=== PATIENT | female | born 1950 | race Caucasian/White ===

== ENCOUNTER → 2017-05-22 09:00 | Outpatient (CLI) | payer MEDICARE, OTHER, SELFPAY ==
[2017-05-22 12:47] LABS: Hemoglobin A1c 5.8 % (4.2-6.3)
[2017-05-22 12:57] LABS: Anion Gap 11 (5-15); BUN 11 mg/dL (7-18); BUN/Creat Ratio 15.6 RATIO (10-20); Calcium,Total 8.6 mg/dL (8.5-10.1); Chloride 106 mmol/L (98-107); EST Glomerular Filtration Rate 89 mL/min (>60); Est Glom Filt Rate - Afr Amer 107 mL/min (>60); Glucose 103 mg/dL (74-106); Sodium Level 140 mmol/L (136-145); T4 Free Direct 0.97 ng/dL (0.76-1.46); Thyroid Stim Hormone (TSH) 2.97 uIU/mL (0.358-3.74)
== END ==
PROVIDERS: Family Provider Family Medicine; PCP Family Medicine; Visit Provider Family Medicine
DX: E78.5 Hyperlipidemia, unspecified (principal); R73.01 Impaired fasting glucose; F43.22 Adjustment disorder with anxiety
CPT/HCPCS: 36415; 80048; 83036; 84439; 84443

== ENCOUNTER → 2017-06-28 09:15 | Outpatient (CLI) | payer MEDICARE, OTHER, SELFPAY ==
--- NOTE | 2017-06-28 09:20 | HPBI_ITS ---
MAMMOGRAPHY - BILATERAL DIAGNOSTIC REASON FOR EXAM: Female, 67 years old. Left outer quadrant pain x3 weeks PERTINENT HISTORY: Aunt with breast cancer. TECHNIQUE: Digital examination. Mediolateral oblique (MLO) and craniocaudad (CC) views of both breasts were obtained, along with 3-D, symphysis. CAD: CAD was performed on this study. COMPARISON: 03/05/2016 FINDINGS: Breast Composition: There are scattered areas of fibroglandular density. There are no dominant masses or suspicious calcifications. No other significant abnormalities are identified. There has been no significant change since the prior study. HPBI/DIAG MAMM W/CAD, BILAT IMPRESSION: Stable bilateral diagnostic mammogram. ASSESSMENT CATEGORY: BIRADS Category 2: Benign. A letter regarding these results will be sent to the patient by the facility within 30 days. FOLLOW UP RECOMMENDATION: Yearly follow up mammogram recommended. (A) BR2 Approximately 10% of breast cancers are not detected by mammography. A normal mammogram should not delay biopsy of a clinically suspicious abnormality. Electronically Signed: Jacob Coats MD at 9:18 EDT , Service support ,
--- NOTE | 2017-06-28 09:20 | US_ITS ---
STUDY: ULTRASOUND BREAST - RIGHT REASON FOR EXAM: Female, 67 years old. RIGHT BREAST PAIN-LOQ TECHNIQUE: Axial and longitudinal images of the RIGHT breast were performed with a high resolution ultrasound transducer. COMPARISON: None. FINDINGS: RIGHT Breast: No ultrasound abnormality is seen in the area of tenderness in the lower outer quadrant of the right breast. US/Breast Limited Unilateral IMPRESSION: Normal study. ASSESSMENT CATEGORY: BIRADS Category 1: Negative. A letter regarding these results will be sent to the patient by the facility within 30 days. Electronically Signed: Patrizia Hooper MD at 10:06 EDT Tel , Service support ,
== END ==
PROVIDERS: Family Provider Family Medicine; PCP Family Medicine; Visit Provider Family Medicine
DX: N63.13 Unspecified lump in the right breast, lower outer quadrant (principal)
CPT/HCPCS: 76642; 77062; 77066; G0279

== ENCOUNTER → 2017-09-07 08:52 | Outpatient (CLI) | payer MEDICARE, OTHER, SELFPAY ==
--- NOTE | 2017-09-07 08:59 | CT_ITS ---
STUDY: CT MAXILLOFACIAL SINUSES REASON FOR EXAM: Female, 67 years old. Sinusitis RADIATION DOSAGE (If Supplied By Facility): CTDIvol = ( 33.06 ) mGy, DLP = ( 776.00 ) mGycm TECHNIQUE: The patient was scanned in a multi detector CT scanner. High resolution axial imaging was performed without the administration of intravenous contrast material. Sagittal and coronal images were reconstructed. Individualized dose optimization techniques were used for this CT. COMPARISON: None. FINDINGS: FRONTAL SINUSES: Normal aeration, without mucosal inflammatory disease. ETHMOIDAL SINUSES: Normal aeration, without mucosal inflammatory disease. MAXILLARY SINUSES: There is minimal mucoperiosteal thickening of the maxillary sinuses, small mucous retention cyst at the base of the left. SPHENOIDAL SINUSES: There is a small right posterior sphenoid sinus that is partially opacified. This is in continuity with a larger right sided sphenoid sinus that lies just anterior. The remaining sphenoid sinuses are clear. The mastoid air cells and middle ear cavities are clear. Craniofacial osseous structures unremarkable. Superficial and deep facial soft tissues, pharyngeal soft tissues and orbital contents exhibit no acute process. Cervical soft tissues exhibit numerous small shotty lymph nodes, cervical chains, submandibular, not pathologically enlarged. Normal parotid glands. Cervical spine: Mild multilevel upper cervical degenerative disc disease and facet arthropathy. CT/Sinus/Facial Bone IMPRESSION: Minimal chronic sinus disease. Electronically Signed: Chano Martin, at 0:08 EDT Tel , Service support ,
== END ==
PROVIDERS: Family Provider Family Medicine; PCP Family Medicine; Visit Provider Otolaryngology
DX: J32.9 Chronic sinusitis, unspecified (principal)
CPT/HCPCS: 70486

== ENCOUNTER → 2017-12-13 09:30 | Outpatient (CLI) | payer MEDICARE, OTHER, SELFPAY ==
[2017-12-19 08:31] LABS: HPV HC, High Risk Negative (Negative)
== END ==
PROVIDERS: Family Provider Family Medicine; PCP Family Medicine; Visit Provider Family Medicine
DX: Z12.4 Encounter for screening for malignant neoplasm of cervix (principal)
CPT/HCPCS: 87624; 88175; G0145

== ENCOUNTER 2018-02-03 08:57 | Day surgery (SDC) | payer MEDICARE, OTHER, SELFPAY ==
[2018-02-03 09:15] VITALS: BP 123/73; PULSE 78; RESP 18; TEMP 36.2; O2SAT 98; BMI 30.9
--- NOTE | 2018-02-03 10:15 | COLBX_PTH ---
PATIENT: OMI ANDERSON LOC: EN U#:[id number] AGE/SX: 67/F ROOM: RE02/03/[address]: Dr. Deanne Sharpe MD : 1950 BED: DIS: 02/03/2018 SPEC #: [id number] RECD: 02/03/18 11:56 STATUS: ANDI REQ #: [id number] KAREEN: 02/03/18 10:[address]: Deanne Sharpe DEPT: SURGICAL PATHOLOGY RECD BY: Nimesh Spicer ENTERED: 02/03/18 12:58 SP TYPE: COLON BX OTHR DR: Dr. Barney High MD Tissues: A - Transverse colon B - Rectum, NOS Procedures: Surgery Specimen Level IV HEADER OPERATION: Colonoscopy (MAC) PRE-OP DIAGNOSIS: Change in bowel habits TISSUE SUBMITTED: A - Transverse colon polyp, B - Rectal polyp biopsy MICROSCOPIC DIAGNOSIS A. Transverse colon polyp, biopsy: Fragments of tubular adenoma. Fragments of fecal material. B. Rectal polyp, biopsy: Fragments of hyperplastic polyp. [place]:[facility] 02/04/18 MICROSCOPIC DESCRIPTION Slides are reviewed. GROSS DESCRIPTION A - Received in fixative is one container labeled with the patient's name and designated transverse colon polyp. The specimen consists of multiple irregular fragments of light garcia soft tissue that in aggregate measure 1.2 x 0.5 x 0.1 cm. The specimen is totally submitted in one cassette. B - Received in fixative is one container labeled with the patient's name and designated rectal polyp biopsy. The specimen consists of two irregular fragments of light garcia soft tissue that in aggregate measure 0.5 x 0.2 x 0.1 cm. The specimen is totally submitted in one cassette. / [place]:[facility] 02/03/18 TC:1 [facility]: [id number] x2
[2018-02-03 11:00] VITALS: BP 123/73; BP 137/84; PULSE 76; RESP 16; TEMP 36.7; O2SAT 100
[2018-02-03 11:05] VITALS: BP 123/73; BP 130/76; PULSE 74; RESP 16; O2SAT 100
--- NOTE | 2018-02-03 11:05 | OP.ENDO_ITS ---
Patient Name: Donna Woo Procedure Date: 02/03/2018 10:09 AM Date of : 1950 Age: 67 Procedure: Colonoscopy Indications: Change in bowel habits Providers: Deanne Sharpe MD Medicines: Monitored Anesthesia Care Patient Profile: Last Colonoscopy: 10 years ago. Complications: No immediate complications. Procedure: Pre-Anesthesia Assessment: - Prior to the procedure, a History and Physical was performed, and patient medications and allergies were reviewed. The patient's tolerance of previous anesthesia was also reviewed. The risks and benefits of the procedure and the sedation options and risks were discussed with the patient. All questions were answered, and informed consent was obtained. Prior Anticoagulants: The patient has taken no previous anticoagulant or antiplatelet agents. ASA Grade Assessment: II - A patient with mild systemic disease. After reviewing the risks and benefits, the patient was deemed in satisfactory condition to undergo the procedure. After I obtained informed consent, the scope was passed under direct vision. Throughout the procedure, the patient's blood pressure, pulse, and oxygen saturations were monitored continuously. The Colonoscope was introduced through the anus and advanced to the cecum, identified by the appendiceal orifice, ileocecal valve and palpation. The colonoscopy was performed without difficulty. The patient tolerated the procedure well. The quality of the bowel preparation was good. Scope In: 10:19:40 AM Scope Withdrawal Time 0 hours 23 minutes 16 seconds Scope Out: 10:55:43 AM Total Procedure Duration Time 0 hours 36 minutes 3 seconds Findings: A 3 to 6 mm polyp was found in the transverse colon. The polyp was semi-pedunculated. The polyp was removed with a cold snare. Resection and retrieval were complete. A less than 5 mm polyp was found in the rectum. The polyp was sessile. The polyp was removed with a cold biopsy forceps. Resection and retrieval were complete. Hemorrhoids were found on perianal exam. External and internal hemorrhoids were found. Impression: - One 3 to 6 mm polyp in the transverse colon, removed with a cold snare. Resected and retrieved. - One less than 5 mm polyp in the rectum, removed with a cold biopsy forceps. Resected and retrieved. - Hemorrhoids found on perianal exam. - External and internal hemorrhoids. Recommendation: - Discharge patient to home. - Continue present medications. - Repeat colonoscopy in 3 - 5 years for surveillance based on pathology results. Procedure Code(s): --- Professional --- 36888, Colonoscopy, flexible; with removal of tumor(s), polyp(s), or other lesion(s) by snare technique 88395, 59, Colonoscopy, flexible; with biopsy, single or multiple Diagnosis Code(s): --- Professional --- D12.3, Benign neoplasm of transverse colon (hepatic flexure or splenic flexure) K62.1, Rectal polyp K64.8, Other hemorrhoids R19.4, Change in bowel habit CPT copyright 2017 [employer]. All rights reserved. The codes documented in this report are preliminary and upon medical biller/coder review may be revised to meet current compliance requirements. MD Deanne Lubin MD 02/03/2018 11:04:13 AM This report has been signed electronically. Number of Addenda: 0 Note Initiated On: 02/03/2018 10:09 AM
[2018-02-03 11:10] VITALS: BP 123/73; BP 128/81; PULSE 74; RESP 16; O2SAT 100
[2018-02-03 11:15] VITALS: BP 123/73; BP 128/85; PULSE 76; RESP 16; TEMP 36.4; O2SAT 100
[2018-02-03 11:34] VITALS: BP 123/73
== END 2018-02-03 11:35 | disposition home or self-care (01) ==
LOC: EN 08:57 → AC 08:59
PROVIDERS: Family Provider Family Medicine; PCP Family Medicine; Referring Provider Surgery; Visit Provider Surgery
PROC: 0DJD8ZZ Inspection of Lower Intestinal Tract, Via Natural or Artificial Opening Endoscopic (ICD-10-PCS; CPT 45378; principal; 2018-02-03 10:10)
DX: D12.3 Benign neoplasm of transverse colon (principal); K62.1 Rectal polyp; K64.4 Residual hemorrhoidal skin tags; K64.8 Other hemorrhoids; E78.00 Pure hypercholesterolemia, unspecified; K58.9 Irritable bowel syndrome, unspecified; Z78.0 Asymptomatic menopausal state; Z79.82 Long term (current) use of aspirin; Z79.899 Other long term (current) drug therapy; Z87.891 Personal history of nicotine dependence
CPT/HCPCS: 45380; 45385; 88305; J7120

== ENCOUNTER 2018-03-02 15:56 | Emergency (ER) | payer OTHER, MEDICARE, SELFPAY ==
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
[2018-03-02] MEDS: Acetaminophen 500 MG Tablet 1000 MG PO (16:30)
[2018-03-02 16:34] VITALS: BP 162/83; BP 178/96; PULSE 78; PULSE 79; RESP 18; RESP 19; TEMP 36.6; O2SAT 97; BMI 32.5
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
== END 2018-03-02 17:32 | disposition home or self-care (01) ==
PROVIDERS: Emergency Provider Emergency Medicine; Family Provider Family Medicine; PCP Family Medicine
DX: R51 Headache (principal); V89.2XXA Person injured in unspecified motor-vehicle accident, traffic, initial encounter; Y93.9 Activity, unspecified; Y92.9 Unspecified place or not applicable; E78.00 Pure hypercholesterolemia, unspecified; Z79.82 Long term (current) use of aspirin; Z79.899 Other long term (current) drug therapy; Z87.891 Personal history of nicotine dependence
CPT/HCPCS: 99284

== ENCOUNTER → 2018-03-19 12:17 | Outpatient (CLI) | payer MEDICARE, OTHER, SELFPAY ==
[2018-03-02 16:34] VITALS: BMI 32.5
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
--- OUTSIDE RECORDS SUMMARY | 2018-05-05 16:08 | XMS RPT_ITS ---
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 always necessarily be in the morning which was previously she denies any blood. However for the last week she is felt kind of a constant pain on the right side inside her anus at about 2:00 with posterior being 12:00. She states she will occasionally has lower abdominal pain but this seems to be when she is maybe a little constipated and when she has a large bowel movement that pain will resolve. She has not tried any stool softeners or any other laxatives as she states her diet is been the same. She is quite anxious as she does live alone and her also sounds like he had rectal cancer that may have been metastatic at time of diagnosis. She did have a colonoscopy in 2007 that was negative. No family history of colon cancer. ROS General General: No weight change, appetite, fatigue, colon cancer, breast cancer or weakness HEENT HEENT: No difficulty swallowing, eye injury, eye surgery, swollen glands or hoarseness Endo Endocrine: No thyroid disease, diabetes mellitus, thyroid cancer, Hair loss, heat intolerance or cold intolerance Cardio Cardiovascular: No murmur, pacemaker, heart disease, atrial fibrillation, high blood pressure, heart attack, heart stent, palpitations, shortness of breat with exertion or chest pain Resp Respiratory: No shortness of breath, No sleep apnea, No cough, No COPD, No asthma, No emphysema, No wheezing Gastro Gastrointestinal: No abdominal pain, No nausea or vomiting, No diarrhea, No blood in stool, No acid reflux, No hemorrhoids, No ulcers, No gallbladder problem, No black,tarry stools, Yes constipation Julio Hematologic: No blood thinners, No blood disorders, No bleeding, No anemia, No blood clots Neuro Neurologic: No weakness Exam Const General: cooperative, comfortable, healthy appearing Resp Effort AND Inspection: normal respiratory effort Cardio Heart Sounds: no murmurs GI Inspection: non-distended Palpation: soft, nontender Other: ZOYA: Inspection patient does have a little residual tissue at 12:00 as well as 6:00 noninflamed, ZOYA patient does feel to have a small internal hemorrhoid about the right anterior cushion and there also seems to be a possible small rectal polyp/mass about the 2 to 3:00 (with the 12:00 being posterior) on the right side on exam. Patient states that area is tender when palpated but she denied any rectal pain or tenderness prior to the rectal exam. No gross blood. Assessment AND Plan Problems 1. Change in bowel habits R19.4 2. Abnormal digital rectal exam R68.89 Plan I have discussed the above with the patient. I have offered the patient diagnostic colonoscopy for evaluation. I have explained the risks/benefits of the procedure and described the procedure. I have discussed the risks with the patient, including but not limited to: infection, bleeding, perforation of the GI tract requiring emergency surgery, inability to complete the procedure, injury to any internal organs, complications of anesthesia, etc. - the patient understands and agrees to proceed. I have answered all the patient's questions to the patient's satisfaction and the patient has no further questions. The patient has been given instructions for the colon cleansing preparation. GoLYTELY requested per pt. Deanne Sharpe M.D. Pager: [phone] [facility] [address] [place] [address], [facility], [address] [place] [address] Office: [phone] Medications New: peg 3350-electrolytes 236-22.74-6.74 -5.86 gram (Golytely) 240 mL PO Q10M 4,000 mL 0RF until fecal effluent is clear; do not exceed a total volume gy2953 mL Plan Detail Follow Up Colonoscopy scheduled for 02/03 Coding Level of Care Code Off vis,new,level 3 Diagnoses Change in bowel habits R19.4 Abnormal digital rectal exam R68.89 01/31/18 1103 <Electronically signed by Deanne Sharpe MD> Date Deanne Sharpe MD Cosigner Signature: Date (if applicable) CC: Barney High MD PAP I-G HPV HI Collected: 12/13/2017 Status: F Source: CHERRI RISK 9:30 AM [facility] REPOSITORY Order Comment: CYTOLOGY INFORMATION: - CLINICAL INFORMATION: HYSTERECTOMY - DATE LMP/MENOPAUSE: - COLLECTION VIAL: Thin Prep Vial - CLOUD AUTOMATION TESTER SOURCE: VAGINAL - COLLECTION TECHNIQUE: Specimen Comment: [id number] Specimen Comment: Source.............Vagina Specimen Comment: LMP / Prev Treat...Hyst Specimen Comment: No. of containers..01 ThinPrep Vial TYPE CODE TESTS RESULT OUT OF RANGE REFERENCE UNITS LAB L7400.0800 . Normal DIAGN Comment Result Comment: NEGATIVE FOR INTRAEPITHELIAL LESION AND MALIGNANCY. CELLULAR CHANGES ASSOCIATED WITH ATROPHY AND INFLAMMATION ARE PRESENT. LAB L7400.0900 . Normal ADEQ Comment Result Comment: Satisfactory for evaluation. No endocervical cells are present. This is consistent with a history of hysterectomy. Areas of partially obscuring inflammtory exudate are present. LAB L7400.1400 . Normal PERFORM Comment Result Comment: Antoni Mendoza Gear Milling Machine Set Up Operator (ASCP) LAB L7400.2575 . Normal TEST METHOD Comment Result Comment: This liquid based ThinPrep(R) pap test was screened with the use of an image guided system. LAB L7400.2600 . Normal . COMM LAB L7400.2700 . Normal PAPSMR Comment Result Comment: The Pap smear is a screening test designed to aid in the detection of premalignant and malignant conditions of the uterine cervix. It is not a diagnostic procedure and should not be used as the sole means of detecting cervical cancer. Both false-positive and false-negative reports do occur. LAB L7400.2950 Negative Normal HPV Negative HC,HGH RISK Result Comment: This high-risk HPV test detects thirteen high-risk types (16/18/31/33/35/39/45/51/52/56/58/59/68) without differentiation. Performed at: - [facility] [id number] Floor Service Worker [place]: Maria Dolores Lucas MD, Phone: [phone] Performed at: =G - [facility] [address] [id number] Floor Service Worker [place]: Maria Dolores Lucas MD, Phone: [phone] Performed By: #### L7400.0375 #### [facility] (refer to report for specific site) refer to report for address and phone number SINUS/FACIAL BONE Observed: 09/07/2017 Status: F Source: CHERRI 8:59 AM [facility] REPOSITORY [facility] Imaging Services [address] [place] [address] [place] [address] Sinus/Facial Bone MR#: [id number] Acct: [id number] Name: OMI WOO Peter Rep #: [id number] : 1950 F 67 From: Chano Martin MD PCP: Barney High Status: REG CLI Study: Sinus/Facial Bone Date of Exam: 09/07/17 Exam# [id number] Ordering Dr: Roni Lowe MD STUDY: CT MAXILLOFACIAL SINUSES REASON FOR EXAM: Female, 67 years old. Sinusitis RADIATION DOSAGE (If Supplied By Facility): CTDIvol = ( 33.06 ) mGy, DLP = ( 776.00 ) mGycm TECHNIQUE: The patient was scanned in a multi detector CT scanner. High resolution axial imaging was performed without the administration of intravenous contrast material. Sagittal and coronal images were reconstructed. Individualized dose optimization techniques were used for this CT. COMPARISON: None. FINDINGS: FRONTAL SINUSES: Normal aeration, without mucosal inflammatory disease. ETHMOIDAL SINUSES: Normal aeration, without mucosal inflammatory disease. MAXILLARY SINUSES: There is minimal mucoperiosteal thickening of the maxillary sinuses, small mucous retention cyst at the base of the left. SPHENOIDAL SINUSES: There is a small right posterior sphenoid sinus that is partially opacified. This is in continuity with a larger right sided sphenoid sinus that lies just anterior. The remaining sphenoid sinuses are clear. The mastoid air cells and middle ear cavities are clear. Craniofacial osseous structures unremarkable. Superficial and deep facial soft tissues, pharyngeal soft tissues and orbital contents exhibit no acute process. Cervical soft tissues exhibit numerous small shotty lymph nodes, cervical chains, submandibular, not pathologically enlarged. Normal parotid glands. Cervical spine: Mild multilevel upper cervical degenerative disc disease and facet arthropathy. CT/Sinus/Facial Bone IMPRESSION: Minimal chronic sinus disease. Electronically Signed: Chano Martin, at 0:08 EDT Tel , Service support , CC: Paul Lowe MD; Barney High Certified Coder: Signed URGENT CARE VISIT Observed: 08/16/2017 Status: F Source: PROSPECT REPORT 9:19 AM [facility] REPOSITORY [facility] [address] [place] [address] [address] [place] [address] OFFICE VISIT Date of Service: 08/16/17 MR#: [id number] Acct: [id number] Name: OMI WOO Rep #: [id number] : 1950 Provider: Rashaun BLACKBURN Age/Sex: 67/F [place] [facility] [place]: Signed Intake Vital Signs08/16/17 Height 5 ft 7 in Intake Visit Reasons: congestion Is patient in pain?: No Allergies codeine Allergy (Verified 08/16/17 09:09) Other doxycycline Allergy (Verified 08/16/17 09:09) Unknown Medications amoxicillin 875 mg-potassium clavulanate 125 mg tablet 1 tab PO Q12H 10 Days #20 tab 08/16/17 [Rx Confirmed 08/16/17] PFSH Medical History Hx of chest pain (Acute) Surgical History Hx of hysterectomy (Acute) Family History Aunt Breast cancer Mother Neuropathy Social History Smoking Status: Former smoker alcohol intake: current Alcohol type: wine HPI HPI Details: OMI WOO, is a 67 F who presents to the office today for sinus pressure and pain which has been ongoing for the past 2 months. Patient states that she has recently been to her ENT and prescribed doxycycline which she was unable to complete due to side effects. She states that in addition to her sinus pressure and pain she is also had nasal congestion and cough which has been productive of green/yellow sputum. She denies hemoptysis, shortness of breath or difficulty breathing. She has tried several wjcn-zld-ivcyiah medications including Clair and Benadryl with no relief. She has had no fever, chills, sweats. No nausea, vomiting, diarrhea. No other associated symptoms or alleviating/aggravating factors. ROS Const Constitutional: Positive for headache(s); no fever(s), chills, night sweats or abnormal sleep pattern ENT ENT: Positive for headache(s), nasal congestion, sinus pressure, sinus pain and nasal discharge; no ear pain Resp Respiratory: Positive for cough Cough: Yes productive; no shortness of breath, hemoptysis, wheezing or pain with cough Cardio Cardiology: No shortness of breath, irregular heart rhythm or fast heart rate Neuro Neurology: Positive for headache(s); no confusion Psych Psychiatric: No abnormal sleep pattern, No confusion Aller/Imm Allergy/Immunologic: No wheezing Exam Const General: cooperative, healthy appearing [facility] Head: normal to inspection Ears: hearing grossly normal bilaterally, TM's normal bilaterally, EAC's normal Nose: nasal discharge purulent Face and sinus: sinus tenderness frontal and maxillary Mouth: oral mucosae normal Throat: abnormal tonsil bilaterally, postnasal drainage Resp Effort AND Inspection: normal respiratory effort Auscultation: Bilateral: Clear to Auscultation Cardio Palpation: normal PMI Rate: regular rate Rhythm: regular rhythm Neuro General: alert, CN's II-XI intact bilaterally Psych Appearance: grossly normal Mental Status: mental status grossly normal Assessment AND Plan Problems 1. Acute non-recurrent maxillary sinusitis J01.00 Status Acute Plan Augmentin as prescribed today. Encouraged to get plenty of rest, drink lots of clear liquids, and use Tylenol or Ibuprofen (unless contraindicated) for fever and comfort. Patient also educated on other symptomatic management techniques. To be seen in 7-10 days if no improvement; sooner if worsening of symptoms. Patient advised of potential red flags when appropriate report to the ED. Patient verbalized understanding of all the above. This note was generated with [employer] dictation software. It may contain incorrect words, spelling, and punctuation that were not noted in checking the note before signing. Medications New: Coding Level of Care Code Off vis,est,level 3 Diagnoses Acute non-recurrent maxillary sinusitis J01.00 Sinusitis location: maxillary Recurrence: non-recurrent 08/16/17 0919 <Electronically signed by Rashaun BLACKBURN> Date Rashaun BLACKBURN Cosigner Signature: Date (if applicable) CC: BREAST LIMITED Observed: 06/28/2017 Status: F Source: PROSPECT UNILATERAL 9:21 AM [facility] REPOSITORY [facility] Imaging Services [address] [place] [address] Breast Limited Unilateral MR#: [id number] Acct: [id number] Name: OMI WOO Rep #: [id number] : 1950 F 67 From: Patrizia Hooper MD PCP: Barney High Status: REG CLI Study: Breast Limited Unilateral Date of Exam: 06/28/17 Exam# [id number] Ordering Dr: Barney High MD STUDY: ULTRASOUND BREAST - RIGHT REASON FOR EXAM: Female, 67 years old. RIGHT BREAST PAIN-LOQ TECHNIQUE: Axial and longitudinal images of the RIGHT breast were performed with a high resolution ultrasound transducer. COMPARISON: None. FINDINGS: RIGHT Breast: No ultrasound abnormality is seen in the area of tenderness in the lower outer quadrant of the right breast. US/Breast Limited Unilateral IMPRESSION: Normal study. ASSESSMENT CATEGORY: BIRADS Category 1: Negative. A letter regarding these results will be sent to the patient by the facility within 30 days. Electronically Signed: Patrizia Hooper MD at 10:06 EDT Tel , Service support , CC: Barney High Certified Coder: Signed DIAG MAMM W/CAD, Observed: 06/28/2017 Status: F Source: PROSPECT BILAT 9:21 AM [facility] REPOSITORY [facility] Imaging Services [address] [place] [address] DIAG MAMM W/CAD, BILAT MR#: [id number] Acct: [id number] Name: OMI WOO Rep #: [id number] : 1950 F 67 From: Josue Coats MD PCP: Barney High Status: REG CLI Study: DIAG MAMM W/CAD, BILAT Date of Exam: 06/28/17 Exam# [id number] Ordering Dr: Barney High MD MAMMOGRAPHY - BILATERAL DIAGNOSTIC REASON FOR EXAM: Female, 67 years old. Left outer quadrant pain x3 weeks PERTINENT HISTORY: Aunt with breast cancer. TECHNIQUE: Digital examination. Mediolateral oblique (MLO) and craniocaudad (CC) views of both breasts were obtained, along with 3-D, symphysis. CAD: CAD was performed on this study. COMPARISON: 03/05/2016 FINDINGS: Breast Composition: There are scattered areas of fibroglandular density. There are no dominant masses or suspicious calcifications. No other significant abnormalities are identified. There has been no significant change since the prior study. HPBI/DIAG MAMM W/CAD, BILAT IMPRESSION: Stable bilateral diagnostic mammogram. ASSESSMENT CATEGORY: BIRADS Category 2: Benign. A letter regarding these results will be sent to the patient by the facility within 30 days. FOLLOW UP RECOMMENDATION: Yearly follow up mammogram recommended. (A) BR2 Approximately 10% of breast cancers are not detected by mammography. A normal mammogram should not delay biopsy of a clinically suspicious abnormality. Electronically Signed: Jacob Coats MD at 9:18 EDT , Service support , CC: Barney High Certified Coder: Signed HEMOGLOBIN A1C Collected: 05/22/2017 Status: F Source: PROSPECT 9:05 AM [facility] REPOSITORY TYPE CODE TESTS RESULT OUT OF RANGE REFERENCE UNITS LAB L501.9985 4.2-6.3 % Normal HGB A1C 5.8 Performed By: #### L501.9985 #### [facility] [address] [place], [address] BASIC METABOLIC Collected: 05/22/2017 Status: F Source: PROSPECT PROFILE (BMP) 9:05 AM [facility] REPOSITORY TYPE CODE TESTS RESULT OUT OF RANGE REFERENCE UNITS LAB L501.0100 74-106 mg/dL Normal GLU 103 Result Comment: Fasting Glucose result from 100 to 125 mg/dL suggests IMPAIRED HOMEOSTASIS per A.D.A. criteria. Please note revised GLUCOSE reference range effective 2017. LAB L501.1000 7-18 mg/dL Normal BUN 11 LAB L501.1100 0.55-1.02 mg/dL Normal CREAT,SERUM 0.70 Result Comment: The validity of the calculated GFR AND GFRAA in patients over 70 years has not been determined. Clinical correlation is essential. LAB L501.1110 >60 mL/min Normal EST GFR 89 Result Comment: Non- GFR Calc LAB L501.1115 >60 mL/min Normal EST GFR - AA 107 Result Comment: GFR Calc LAB L501.1300 10-20 RATIO Normal BUN/CRE 15.6 LAB L501.2200 8.5-10.1 mg/dL CA Normal 8.6 LAB L501.5300 136-145 mmol/L NA Normal 140 LAB L501.5600 3.5-5.1 mmol/L K Normal 4.0 LAB L501.5900 98-107 mmol/L CL Normal 106 LAB L501.6100 21.0-32.0 mmol/L Normal CO2 23.0 LAB L501.6200 5-15 Normal GAP 11 Performed By: #### L500.2500, L501.9520, L506.0400 #### [facility] [address] [facility] [place], [address] THYROID STIM HORMONE Collected: 05/22/2017 Status: F Source: PROSPECT (TSH) 9:05 AM [facility] REPOSITORY TYPE CODE TESTS RESULT OUT OF RANGE REFERENCE UNITS LAB L501.9520 0.358-3.74 uIU/mL Normal TSH 2.97 Performed By: #### L500.2500, L501.9520, L506.0400 #### [facility] [address] [facility] [place], [place], [id number] T4 FREE DIRECT Collected: 05/22/2017 Status: F Source: CHERRI 9:05 AM [facility] REPOSITORY TYPE CODE TESTS RESULT OUT OF RANGE REFERENCE UNITS LAB L506.0400 0.76-1.46 ng/dL Normal T4 FREE 0.97 DIRECT Performed By: #### L500.2500, L501.9520, L506.0400 #### [facility] [address] [facility] [address] [facility] [place], [place], [address] ALLERGIES ALLERGIES DATE TYPE / CODE NAME / CODE REACTION SEVERITY SOURCE 03/02/2018 Drug codeine/F00 SEVERE CONSTIPATION ME [facility] Allergy/202 1759673(RXN Hospital 074023(SNOM ORM) Repository ED CT) 03/02/2018 Drug doxycycline Unknown Unknown [facility] Allergy/416 /[id number] [facility] 884944(SNOM (RXNORM) Repository ED CT) ENCOUNTERS ENCOUNTERS ADMIT/DISCHARGE ACCOUNT ADMITTING ENCOUNTER LOCATION SOURCE NUMBER CLASS 04/28/2018 [id number] Ambulatory [place] 8 [facility] ing:PT Repository 03/19/2018 [id number] Ambulatory [place] 3 [facility] ing:MTRAD Repository 03/02/2018/ [id number] Emergency [place] 8 6 [facility] ing:ED Repository 02/03/2018/ [id number] Ambulatory [place] 8 9 [facility] ing:ENRoom: Repository AC10 02/03/2018/ [id number] Ambulatory BMSBuilding:B [place] 8 2 MS.[facility] Repository 01/31/2018/ [id number] Ambulatory BMSBuilding:B [place] 8 9 MS.[facility] Repository 01/06/2018/ [id number] Ambulatory BMSBuilding:B [place] 8 3 MS.[facility] Repository 12/13/2017 [id number] Ambulatory [place] 4 [facility] ing:LABSPEC Repository 09/07/2017 [id number] Ambulatory [place] 9 [facility] ing:CT Repository 08/16/2017/ [id number] Ambulatory BMSBuilding:B [place] 8 4 [facility] Repository 06/28/2017 [id number] Ambulatory [place] 5 [facility] ing:BI Repository 05/22/2017 [id number] Ambulatory [place] 7 [facility] ing:BFHLAB Repository PAYERS PAYERS ENCOUNTER GUARANTOR PAYER SUBSCRIBER SOURCE 04/28/2018 OMI E Primary OMI E [place] [id number] Insurance:MEDICARE [facility]: [facility] [id number]: Repository [address]Mbw: 330 [id number] [phone] (HP) Date:2017-04-08 04/28/2018 Secondary OMI E [place] Insurance:AARPPolicy WISNERDOB: Community Number: [id number] [id number] Repository Date:2037-82-18[address], [place] [address]VE: 04/28/2018 Tertiary NOT GIVENUNK [place] Insurance:SELF PAY [facility] Number: Effective Repository Date:2018-04-14 03/19/2018 OMI E Primary OMI E [place] [id number] Insurance:MEDICARE WISNERDOB: [facility]ly [facility] PART A [facility] [id number] Number: Repository [address]Cog: [phone] [id number] [phone] () Date:2018-03-19 03/19/2018 Secondary OMI E [place] [facility]: Community Number: [id number] [id number] Repository Date:1144-85-81[address], [place] [address]GH: 03/19/2018 Tertiary NOT GIVENUNK [place] Insurance:SELF PAY [facility] Hospital Number: Effective Repository Date:2018-03-19 03/02/2018 OMI E Primary OMI E [place] [id number] Insurance:RIOS WISNERDOB: [facility] [id number] Number: Repository [id number]: 330 [id number] [phone] (HP) ve Date: [place], [place] [address]SK: 03/02/2018 Secondary OMI E [place] Insurance:MEDICARE WISNERDOB: Community PART A [facility] [id number] Hospital Number: Repository [id number] Date:2018-03-02 03/02/2018 Tertiary OMI E [place] Insurance:AARPPolicy WISNERDOB: Community Number: [id number] Hospital [id number] Repository Date:3397-46-49[address], [place] [address]JW: 03/02/2018 Tertiary NOT GIVENUNK [place] Insurance:SELF PAY [facility] Hospital Number: Effective Repository Date:2018-03-02 02/03/2018 OMI E Primary OMI E [place] [id number] Insurance:MEDICARE WISNERDOB: Community [facility] PART A [facility] [id number] Number: Repository [address]Idy: 330 [id number] [phone] () Date:2018-01-06 02/03/2018 Secondary OMI E [place] Insurance:AARPPolicy WISNERDOB: Community Number: [id number] Hospital [id number] Repository Date:9750-76-20UJ [facility] [address], [place] [address]NE: 02/03/2018 Tertiary NOT GIVENUNK [place] Insurance:SELF PAY [facility] Hospital Number: Effective Repository Date:2018-01-06 02/03/2018 OMI E Primary OMI E [place] [id number] Insurance:MEDICARE WISNERDOB: [facility] PART A [facility] [id number] Number: Repository [address]Tnp: 330 [id number] [phone] () Date:2018-01-06 02/03/2018 Secondary OMI E [place] Insurance:AARPPolicy WISNERDOB: Community Number: [id number] Hospital [id number] Repository Date:7916-00-69QU [facility] [address]X[place], [place] [address]EC: 02/03/2018 Tertiary NOT GIVENUNK [place] Insurance:SELF PAY [facility] Hospital Number: Effective Repository Date:2018-02-03 01/31/2018 OMI E Primary OMI E [place] [id number] Insurance:MEDICARE WISNERDOB: Community [facility] PART A [id number] [place] Number: Repository [address]Vxs: 330 [id number] [phone] () Date:2018-01-30 01/31/2018 Secondary OMI E [place] Insurance:AARPPolicy WISNERDOB: Community Number: [id number] Hospital [id number] Repository Date:3865-14-80[address], [place] [address]KH: 01/31/2018 Tertiary NOT GIVENUNK [place] Insurance:SELF PAY [facility] Hospital Number: Effective Repository Date:2018-01-30 01/06/2018 OMI E Primary OMI E [place] [id number] Insurance:[facility]ICARE [facility]NERDOB: Formerly [facility] PART A [facility] [id number] Number: Repository [id number]: [phone] [id number] [phone] () Date:2018-01-06 01/06/2018 Secondary OMI E Hilliard Insurance:AARPPolicy WISNERDOB: Community Number: [id number] [facility] [id number] Repository Date:0342-09-76[id number], [place] [address]DE: 01/06/2018 Tertiary NOT GIVENUNK [place] Insurance:SELF PAY [facility] Hospital Number: Effective Repository Date:2018-01-06 12/13/2017 OMI E Primary OMI E Hilliard [id number] Insurance:MEDICARE [facility]NERDOB: Formerly [facility] PART A [facility] [id number] Number: Repository [id number]: [phone] [id number] [phone] () Date:2017-12-13 12/13/2017 Secondary OMI E Hilliard Insurance:AARPPolicy WISNERDOB: Community Number: [id number] Hospital [id number] Repository Date:9712-66-82[address]XCHFS, [place] [address]VC: 12/13/2017 Tertiary NOT GIVENUNK Cherri Insurance:SELF PAY [facility] Hospital Number: Effective Repository Date:2017-12-13 09/07/2017 OMI E Primary OMI E Cherri [id number] Insurance:MEDICARE WISNERDOB: Community [place] PART A [facility] [id number] Number: Repository [id number]: [id number] [phone] Date:2017-09-04 () 09/07/2017 Secondary OMI E Hilliard Insurance:AARPPolicy WISNERDOB: Community Number: [id number] Hospital [id number] Repository Date:[id number]HEP, [place] [address]MH: 09/07/2017 Tertiary NOT GIVENUNK [place] Insurance:SELF PAY [facility] Number: Effective Repository Date:2017-09-04 08/16/2017 OMI E Primary OMI E Cherri [id number] Insurance:MEDICARE WISNERDOB: Community [place] PART A [facility] [id number] [place] Number[facility] Repository [id number]: [id number] [phone] Date:2017-08-16 () 08/16/2017 Secondary OMI E Hilliard Insurance:AARPPolicy WISNERDOB: Community Number: [id number] Hospital [id number] Repository Date:2530-83-77[place] [address], [place] [address]HX: 08/16/2017 Tertiary NOT GIVENUNK [place] Insurance:SELF PAY [facility] Number: Effective Repository Date:2017-08-16 06/28/2017 OMI E Primary OMI E Cherri [id number] Insurance:MEDICARE WISNERDOB: Community [place] PART A [facility] [id number] Number: Repository [id number]: [id number] [phone] Date:2017-06-24 () 06/28/2017 Secondary OMI E Cherri Insurance:AARPPolicy WISNERDOB: Community Number: [id number] Hospital [id number] Repository Date:3316-72-41GC [facility] [address], [place] [address]NW: 06/28/2017 Tertiary NOT GIVENUNK [place] Insurance:SELF PAY [facility] Number: Effective Repository Date:2017-06-24 05/22/2017 OMI E Primary OMI E Hilliard [id number] Insurance:[id number] PART A [facility] [id number] Number: Repository [id number]: [phone]) [id number] [phone] () Date:2017-05-22 05/22/2017 Secondary OMI E [place] [facility] W[facility]: Community Number: [id number] Hospital [id number] Repository Date:[id number] [facility] [address], [place] [address]LO: 05/22/2017 Tertiary NOT GIVENUNK Cherri Insurance:SELF PAY [facility] Number: Effective Repository Date:2017-05-22
== END ==
PROVIDERS: Family Provider Family Medicine; PCP Family Medicine; Referring Provider Family Medicine; Visit Provider Family Medicine
DX: S13.4XXA Sprain of ligaments of cervical spine, initial encounter (principal); V89.2XXA Person injured in unspecified motor-vehicle accident, traffic, initial encounter
CPT/HCPCS: 72050

== ENCOUNTER → 2018-06-02 08:03 | Outpatient (CLI) | payer MEDICARE, OTHER, SELFPAY ==
[2018-06-02 12:45] LABS: Absolute Lymphocyte Count 1.27 X10^3/ul (0.83-4.51); Absolute Neutrophil Count 2.3 X10^3/uL (2.0-7.7); Basophil# 0.03 X10^3/uL; Basophil% 0.7 % (0-1); Eosinophil# 0.07 X10^3/uL; Eosinophils% 1.7 % (0-5); Hemoglobin 14.3 g/dl (12.0-15.0); Lymphocyte # 1.27 X10^3/ul (4.0); Lymphocyte % 30.9 % (19-41); Mean Corp Hgb Conc 32.5 g/gl (32-36); Mean Corpuscular Hgb 30.3 pg (27.0-32.0); Mean Corpuscular Volume 93.2 fL (81-99); Mean Platelet Vol. 9.8 fl (6.2-12.0); Monocyte# 0.46 X10^3/uL; Monocyte% 11.2 % (0-10); Neutrophil # 2.27 X10^3/uL (2.7-7.7); Neutrophil % 55.3 % (47-70); Platelet Count 212 K/mm3 (150-450); RBC Distribution Width CV 12.3 % (11.6-14.6); RBC Distribution Width SD 41.2 fl (35.1-43.9); Red Blood Count 4.72 M/mm3 (4.2-5.4); White Blood Count 4.1 K/mm3 (4.4-11.0)
[2018-06-02 12:59] LABS: POSITIVE COUNT NO; POSITIVE DIFFERENTIAL NO; POSITIVE MORPHOLOGY NO
[2018-06-02 13:14] LABS: Hemoglobin A1c 5.7 % (4.2-6.3)
[2018-06-02 13:18] LABS: AST(SGOT) 22 U/L (15-37); Alanine Aminotransfer ALT/SGPT 29 U/L (13-56); Albumin, Serum 3.8 g/dL (3.2-5.0); Alkaline Phosphatase 76 U/L (45-117); Anion Gap 7 (5-15); BUN 13 mg/dL (7-18); BUN/Creat Ratio 15.8 RATIO (10-20); Calcium,Total 8.5 mg/dL (8.5-10.1); Chloride 109 mmol/L (98-107); Cholesterol 235 mg/dL (200); Creatinine, Serum 0.82 mg/dL (0.55-1.02); EST Glomerular Filtration Rate 74 mL/min (>60); Est Glom Filt Rate - Afr Amer 89 mL/min (>60); Globulin 3.8 g/dL (2.2-4.2); Glucose 109 mg/dL (74-106); High Density Lipoprotein 68 mg/dL; Potassium 4.2 mmol/L (3.5-5.1); Protein, Total 7.6 g/dL (6.4-8.2); Sodium Level 141 mmol/L (136-145); Triglycerides 139 mg/dL; Very Low Density Lipoprotein 28 mg/dL (5-40)
== END ==
PROVIDERS: Family Provider Family Medicine; PCP Family Medicine; Visit Provider Family Medicine
DX: I10 Essential (primary) hypertension (principal); R73.01 Impaired fasting glucose; E78.5 Hyperlipidemia, unspecified
CPT/HCPCS: 36415; 80053; 80061; 83036; 85025

== ENCOUNTER 2018-07-04 11:00 | Outpatient (RCR) | payer MEDICARE, OTHER, SELFPAY ==
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
--- NOTE | 2018-05-07 11:42 | HP.PTREVAL ---
TIAN FRIEDMAN, It has been my pleasure to treat OMI ANDERSON over the last 10 visits for CERVICALAGIA. Please see the progress note below for an update on the physical therapy plan of care! Subjective: Patient states cont with PT is helping alot. Symptoms better with movement . Pain is affects sleeping ,conts to get dizzy. Pain affects ADL'S. Discussed with MD will need new order to cont Objective/Function: POSTURE: mild foward posture. PALAPTION: UT /LEVATOR/PARASPINALS/occiput TIGHT RIGHT TO LEFT. NEURO: intact. CERVICAL ROM: lateral flexion/rotation mod/severe right,left mod left,flexion min/mod loss,extension mod loss. MMT: 4/5 except shoulder right 3+/5,left 4-/5 Plan Plan: Continue with POC INTERVENTIONS 2-3/WK FOR 4WEEKS Goals Goal 1:: Patient to be Independant with HEP. Goal Time Frame: 4-6 Weeks Goal Progress: Progressing Goal 2:: Independant with posture for ADL'S Goal Time Frame: 4-6 Weeks Goal Progress: Progressing Goal 3:: Patient to decrease cervical pain by 50% or greater to improve function. Goal Time Frame: 4-6 Weeks Goal Progress: Progressing Goal 4:: Patient to improve cervical ROM for function of recovery Goal Time Frame: 4-6 Weeks Goal Progress: Progressing Goal 5:: Patient improve CERVICAL BRENDA score by 5 points to improve QOL. Goal Time Frame: 4-6 Weeks Goal Progress: Progressing Anticipated Interventions Patient/Client Instruction: Educate patient on: Condition, Plan of Care For the Purpose of:: To decrease pain, To increase ROM, To improve muscle performance and motor function, To improve ability to perform ADL's, To increase tolerance to activity/condition/position, To improve ability of physical actions for home/community/work/leisure, To improve health of tissue, To decrease soft tissue restriction, To increase flexibility/ROM, To reduce risk of recurrence, To improve ability to perform tasks related to life management Therapeutic Exercise to Include: Strength training, Postural training, Flexibilty training, Active ROM For the Purpose of:: To decrease pain, To increase ROM, To improve nutrient delivery to tissue, To increase oxygenation perfusion, To improve muscle performance and motor function, To increase tolerance to activity/condition/position, To improve ability of physical actions for home/community/work/leisure, To improve health of tissue, To decrease soft tissue restriction, To increase flexibility/ROM, To reduce risk of recurrence, To improve ability to perform tasks related to life management Manual Therapy Techniques to Include: Soft tissue mobilization Comment: CERVICAL For the Purpose of:: To decrease pain, To increase ROM, To improve nutrient delivery to tissue, To increase oxygenation perfusion, To improve health of tissue, To decrease soft tissue restriction TENS: Yes IF ES: Yes Cryotherapy (ice pack, ice massage): Yes Thermo therapy (hot pack): Yes Ultrasound (thermal/non thermal): Yes Paraffin bath: Yes For the Purpose of:: To decrease pain, To improve nutrient delivery to tissue, To increase oxygenation perfusion, To improve health of tissue, To decrease soft tissue restriction Please do not hesitate to contact me at [phone] by phone or if you have questions or concerns regarding this new plan of care! Sincerely, Malcolm Osman, PT, Cert MDT, OCS
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
--- NOTE | 2018-11-17 07:47 | HP.PTDCNRP_ITS ---
HP - Discharge Summary (1) - Patient Information OMI ANDERSON was seen in my office for initial evaluation on 04/15/18. The following Plan of Care was established for this patient: Initial Frequency: 3x /Week Initial Duration: 4 Weeks - Anticipated Interventions Patient/Client Instruction: Educate patient on: Condition, Plan of Care For the Purpose of:: To decrease pain, To increase ROM, To improve muscle performance and motor function, To improve ability to perform ADL's, To increase tolerance to activity/condition/position, To improve ability of physical actions for home/community/work/leisure, To improve health of tissue, To decrease soft tissue restriction, To increase flexibility/ROM, To reduce risk of recurrence, To improve ability to perform tasks related to life management Therapeutic Exercise to Include: Strength training, Postural training, Flexibilty training, Active ROM For the Purpose of:: To decrease pain, To increase ROM, To improve nutrient delivery to tissue, To increase oxygenation perfusion, To improve muscle performance and motor function, To increase tolerance to activity/condition/position, To improve ability of physical actions for home/community/work/leisure, To improve health of tissue, To decrease soft tissue restriction, To increase flexibility/ROM, To reduce risk of recurrence, To improve ability to perform tasks related to life management Manual Therapy Techniques to Include: Soft tissue mobilization Comment: CERVICAL For the Purpose of:: To decrease pain, To increase ROM, To improve nutrient delivery to tissue, To increase oxygenation perfusion, To improve health of tissue, To decrease soft tissue restriction TENS: Yes IF ES: Yes Cryotherapy (ice pack, ice massage): Yes Thermo therapy (hot pack): Yes Ultrasound (thermal/non thermal): Yes Paraffin bath: Yes For the Purpose of:: To decrease pain, To improve nutrient delivery to tissue, To increase oxygenation perfusion, To improve health of tissue, To decrease soft tissue restriction This patient was last seen in our office 07/04/18. Pertinent comments regarding their Physical therapy will appear below: Pt. has not been seen in several months and will be DC from PT at this point in time. At this point I will be discontinuing this patient from physical therapy. I w ould be happy to see this patient again in the future if found appropriate by the physician. Thank you! Tom Montague, YADIEL
== END 2018-07-04 19:00 | disposition home or self-care (01) ==
LOC: PT 11:00
PROVIDERS: Family Provider Family Medicine; PCP Family Medicine
DX: M54.2 Cervicalgia (principal)
CPT/HCPCS: 97014; 97035; 97110; 97140; 97162; 97164; 97530; G0283

== ENCOUNTER → 2018-07-25 | Outpatient (CLI) | payer MEDICARE, OTHER, SELFPAY ==
--- NOTE | 2018-07-25 15:25 | BI_ITS ---
MAMMOGRAPHY - BILATERAL SCREENING 3-D TOMOSYNTHESIS REASON FOR EXAM: Female, 68 years old. Bilateral Screening 3-D tomosynthesis PERTINENT HISTORY: No significant family history. TECHNIQUE: 2-D mammograms and 3-D Tomosynthesis of the breast (s) were performed. CAD was performed. COMPARISON: March 05, 2016. FINDINGS: The breast composition is composed of scattered fibroglandular density. Scattered benign calcifications are seen. No dense spiculated masses or suspicious microcalcifications are identified. No architectural distortion is identified. There is no skin thickening or retraction. There has been no significant change since the prior study. BI/SCREENING MAMM (CAD), BILAT IMPRESSION: No mammographic signs of malignancy. Routine yearly mammograms recommended. ASSESSMENT CATEGORY: BIRADS Category 1: Negative. A letter regarding these results will be sent to the patient by the facility within 30 days. FOLLOW UP RECOMMENDATION: Yearly follow up mammogram recommended. (A) Approximately 10% of breast cancers are not detected by mammography. A normal mammogram should not delay biopsy of a clinically suspicious abnormality. Electronically Signed: Saeed Acosta MD at 11:57 EDT , Service support ,
== END | disposition home or self-care (01) ==
LOC: OPBI 15:22
PROVIDERS: Family Provider Family Medicine; PCP Family Medicine; Referring Provider Family Medicine; Visit Provider Family Medicine
DX: Z12.31 Encounter for screening mammogram for malignant neoplasm of breast (principal)
CPT/HCPCS: 77063; 77067

== ENCOUNTER → 2018-08-01 | Outpatient (CLI) | payer MEDICARE, OTHER, SELFPAY ==
--- NOTE | 2018-08-01 10:59 | MRI_ITS ---
STUDY: MRI BRAIN WITH AND WITHOUT CONTRAST REASON FOR EXAM: Female, 68 years old. Post concussion headaches TECHNIQUE: Standardized multiplanar fat and water weighted pulse sequences were obtained. 19 IV Dotarem was administered for the contrast portion of the examination. COMPARISON: March 07, 2009 FINDINGS: Normal size of the ventricles and extra-axial spaces for the patient's age. There are small white matter lesions within the frontal lobes without mass effect or restricted diffusion likely representing small vessel ischemic changes in patient of this age. Normal bilateral basal ganglia. Normal thalami. There is no extra-axial fluid accumulation. Normal flow voids within the major intracranial circulation suggesting patency by spin echo criteria. Normal venous enhancement. There is no enhancing intra-axial or extra-axial abnormality. Normal sella turcica, pituitary gland, infundibular stalk, optic chiasm and hypothalamus. Normal tectal plate and pineal gland. Normal midbrain, cooper and medulla. Normal cerebellum. Normal basal cisterns. Normal bilateral temporal bones. Normal bilateral internal auditory canals. No demonstrated orbital abnormality, within the constraints of a routine brain study. Minor mucosal thickening of the ethmoid air cells. Normal calvarium and skull base. Normal visualized soft tissue structures. Normal visualized upper cervical spine. No significant change since prior exam MRI/Brain W/WO Contrast IMPRESSION: Mild periventricular white matter ischemic changes without evidence for acute infarct. No significant changes since prior study Electronically Signed: Ian Zuñiga MD at 17:43 EDT , Service support ,
[2018-08-01 11:30] LABS: CREATININE FINGERSTICK 1.1 mg/dL (0.55-1.02)
== END | disposition home or self-care (01) ==
LOC: MRI 10:51
PROVIDERS: Family Provider Family Medicine; PCP Family Medicine; Referring Provider Psychiatry & Neurology Neurology; Visit Provider Psychiatry & Neurology Neurology
DX: G44.309 Post-traumatic headache, unspecified, not intractable (principal)
CPT/HCPCS: 70553; A9575

== ENCOUNTER → 2019-01-20 09:08 | Outpatient (CLI) | payer MEDICARE, OTHER, SELFPAY ==
[2019-01-20 08:33] VITALS: BMI 32.5
--- NOTE | 2019-01-20 09:11 | RAD_ITS ---
STUDY: X-RAY - CERVICAL SPINE REASON FOR EXAM: Female, 68 years old. Neck pain. TECHNIQUE: 3 view(s) of the cervical spine were obtained. COMPARISON: March 19, 2018 FINDINGS: Mild diffuse osteopenia. Normal anterior atlantoaxial articulation. Normal odontoid process. Normal cervical lordosis. Normal vertebral bodies and endplates. Intervertebral disc space narrowing most marked at C3-4, C4-5, C5-6 and C6-7, similar to what was present on the prior study. Marked osteophyte formation at these levels. Diffuse uncovertebral and facet sclerosis unchanged. Ossification of the ligamentum nuchae unchanged. RAD/Cerv Spine 2 or 3 Views IMPRESSION: Stable moderate to marked lower cervical spondylosis, compared to the prior study. No acute finding. Electronically Signed: Steve Vargas MD at 11:08 EDT , Service support ,
== END ==
PROVIDERS: Family Provider Family Medicine; PCP Family Medicine; Referring Provider Orthopaedic Surgery; Visit Provider Orthopaedic Surgery
DX: M54.2 Cervicalgia (principal)
CPT/HCPCS: 72040

== ENCOUNTER 2019-01-28 09:51 | Outpatient (RCR) | payer MEDICARE, OTHER, SELFPAY ==
[2019-01-20 08:33] VITALS: BMI 32.5
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
== END 2019-01-28 19:00 | disposition home or self-care (01) ==
LOC: OT 09:51
PROVIDERS: Family Provider Family Medicine; PCP Family Medicine; Visit Provider Orthopaedic Surgery
DX: M54.2 Cervicalgia (principal); S12.9XXD Fracture of neck, unspecified, subsequent encounter
CPT/HCPCS: 97165; 97167

== ENCOUNTER → 2019-01-30 13:20 | Outpatient (CLI) | payer MEDICARE, OTHER, SELFPAY ==
[2019-01-20 08:33] VITALS: BMI 32.5
--- NOTE | 2019-01-30 13:21 | CT_ITS ---
STUDY: CT CERVICAL SPINE WITHOUT CONTRAST REASON FOR EXAM: Female, 68 years old. Bilateral scapular pain. RADIATION DOSAGE (If Supplied By Facility): CTDIvol = ( 22.35 ) mGy, DLP = ( 428.42 ) mGycm TECHNIQUE: High resolution transaxial imaging was performed without contrast material. Sagittal and coronal images were reconstructed. Individualized dose optimization techniques were used for this CT. COMPARISON: None FINDINGS: Normal craniovertebral junction. There are degenerative changes of the anterior atlantoaxial articulation. Normal odontoid process. There is straightening of the normal cervical lordosis. There is multilevel spondylosis with prominent anterior osteophytosis and multilevel degenerative disc disease. There are variable degrees of disc space narrowing. Otherwise normal vertebral bodies and posterior osseous elements. C2-3: Mild endplate spondylosis. Mild uncovertebral disease. Marked right-sided and less severe left-sided apophyseal hypertrophy. Moderate right-sided neuroforaminal encroachment. No central canal stenosis. C3-4: Endplate spondylosis with uncovertebral disease, more so on the right. Extensive bilateral apophyseal hypertrophy. Mild right-sided neural foraminal encroachment. No central canal stenosis. C4-5: Endplate spondylosis. Significant left-sided apophyseal hypertrophy. Mild hypertrophy on the right. Mild encroachment of the left neural foramen. No central canal stenosis. C5-6: Endplate spondylosis with uncovertebral disease and moderate bilateral apophyseal hypertrophy. Moderate to severe right-sided neural foraminal encroachment. Mild to moderate left-sided encroachment. No central canal stenosis. Possible right-sided lateral recess impingement. C6-7: Endplate spondylosis with uncovertebral disease and bilateral apophyseal hypertrophy. Moderate left-sided neural foraminal encroachment. Mild right-sided encroachment. Possible borderline central canal stenosis. C7-T1: Mild spondylosis with mild narrowing of disc space. No significant uncovertebral disease. No central canal stenosis or neural foraminal encroachment. Normal visualized soft tissue structures. CT/Spine Cervical without Contras IMPRESSION: Spondylosis/degenerative disease with no acute fracture or subluxation. Variable degrees of bilateral neural foraminal encroachment and borderline or mild spinal stenosis as described above. For details please see above discussion. Electronically Signed: Jonelle Delgado MD at 5:06 EDT , Service support ,
== END ==
PROVIDERS: Family Provider Family Medicine; PCP Family Medicine; Referring Provider Orthopaedic Surgery; Visit Provider Orthopaedic Surgery
DX: M47.812 Spondylosis without myelopathy or radiculopathy, cervical region (principal); M54.2 Cervicalgia
CPT/HCPCS: 72125

== ENCOUNTER → 2019-08-11 08:15 | Outpatient (CLI) | payer MEDICARE, OTHER, SELFPAY ==
[2019-02-17 13:03] VITALS: BMI 32.5
--- NOTE | 2019-08-11 08:17 | BI_ITS ---
MAMMOGRAPHY - BILATERAL SCREENING REASON FOR EXAM: Female, 69 years old. Routine annual screening examination. PERTINENT HISTORY: Aunt with breast cancer. TECHNIQUE: Digital bilateral breast silvia (3D mammographic acquisition) in the CC and MLO projections. 2-D mediolateral oblique (MLO) and craniocaudad (CC) views of both breasts were obtained. CAD: Full Field Digital Mammography with Computer Added Detection was performed. COMPARISON: Comparison is made with prior examination dated July 25, 2018 and June 28, 2017. FINDINGS: Breast Composition: There are scattered areas of fibroglandular density. There are no dominant masses or suspicious calcifications. Stable benign-appearing left axillary lymph node. No other significant abnormalities are identified. There has been no significant change since the prior study. BI/SCREEN MAMM (CAD) W/SILVIA BILAT IMPRESSION: Stable bilateral screening mammogram. Yearly follow-up mammogram recommended. (A) ASSESSMENT CATEGORY: BIRADS Category 2: Benign. A letter regarding these results will be sent to the patient by the facility within 30 days. Approximately 10% of breast cancers are not detected by mammography. A normal mammogram should not delay biopsy of a clinically suspicious abnormality. [id number] Electronically Signed: Carl Phillip, at 9:04 EDT , Service support ,
== END ==
PROVIDERS: PCP Family Medicine; Referring Provider Family Medicine; Visit Provider Family Medicine
DX: Z12.31 Encounter for screening mammogram for malignant neoplasm of breast (principal)
CPT/HCPCS: 77063; 77067

== ENCOUNTER → 2019-11-09 09:09 | Outpatient (CLI) | payer MEDICARE, OTHER, SELFPAY ==
[2019-02-17 13:03] VITALS: BMI 32.5
[2019-11-09 12:35] LABS: ALB/GLOB Ratio 0.9 RATIO (0.9-2.4); AST(SGOT) 17 U/L (15-37); Alanine Aminotransfer ALT/SGPT 22 U/L (13-56); Albumin, Serum 3.8 g/dL (3.2-5.0); Alkaline Phosphatase 80 U/L (45-117); Anion Gap 4 (5-15); BUN 13 mg/dL (7-18); BUN/Creat Ratio 15.9 RATIO (10-20); Calcium,Total 8.8 mg/dL (8.5-10.1); Chloride 103 mmol/L (98-107); Creatinine, Serum 0.82 mg/dL (0.55-1.02); EST Glomerular Filtration Rate 74 mL/min (>60); Est Glom Filt Rate - Afr Amer 90 mL/min (>60); Globulin 4.1 g/dL (2.2-4.2); Glucose 95 mg/dL (74-106); Potassium 4.2 mmol/L (3.5-5.1); Protein, Total 7.9 g/dL (6.4-8.2); Sodium Level 137 mmol/L (136-145); Thyroid Stim Hormone (TSH) 3.42 uIU/mL (0.358-3.74)
== END ==
PROVIDERS: PCP Family Medicine; Visit Provider Family Medicine
DX: E78.5 Hyperlipidemia, unspecified (principal); R73.01 Impaired fasting glucose
CPT/HCPCS: 36415; 80053; 84443

== ENCOUNTER → 2020-05-09 09:30 | Outpatient (CLI) | payer MEDICARE, OTHER, SELFPAY ==
[2019-02-17 13:03] VITALS: BMI 32.5
[2020-05-09 12:01] LABS: Absolute Lymphocyte Count 1.19 X10^3/uL (0.83-4.51); Absolute Neutrophil Count 2.9 X10^3/uL (2.0-7.7); Basophil# 0.03 X10^3/uL; Basophil% 0.6 % (0-1); Eosinophil# 0.07 X10^3/uL; Eosinophils% 1.4 % (0-5); Hematocrit 42.3 % (37-47); Hemoglobin 13.8 g/dL (12.0-15.0); Lymphocyte # 1.19 X10^3/ul (4.0); Lymphocyte % 24.6 % (19-41); Mean Corp Hgb Conc 32.6 g/dL (32-36); Mean Corpuscular Hgb 30.1 pg (27.0-32.0); Mean Corpuscular Volume 92.4 fL (81-99); Mean Platelet Vol. 9.9 fl (6.2-12.0); Monocyte# 0.61 X10^3/uL; Monocyte% 12.6 % (0-10); NRBC Flagged by Analyzer 0 % (0-5); Neutrophil # 2.92 X10^3/uL (2.7-7.7); Neutrophil % 60.6 % (47-70); Platelet Count 217 K/mm3 (150-450); RBC Distribution Width CV 11.4 % (11.6-14.6); RBC Distribution Width SD 38.6 fl (35.1-43.9); Red Blood Count 4.58 M/mm3 (4.2-5.4); White Blood Count 4.8 K/mm3 (4.4-11.0)
[2020-05-09 12:23] LABS: Hemoglobin A1c 5.4 % (3.8-5.6)
[2020-05-09 12:55] LABS: ALB/GLOB Ratio 0.8 RATIO (0.9-2.4); AST(SGOT) 21 U/L (15-37); Alanine Aminotransfer ALT/SGPT 32 U/L (13-56); Albumin, Serum 3.3 g/dL (3.2-5.0); Alkaline Phosphatase 89 U/L (45-117); Anion Gap 7 (5-15); BUN 9 mg/dL (7-18); BUN/Creat Ratio 11.2 RATIO (10-20); Calcium,Total 9.1 mg/dL (8.5-10.1); Chloride 106 mmol/L (98-107); Cholesterol 177 mg/dL (200); EST Glomerular Filtration Rate 76 mL/min (>60); Est Glom Filt Rate - Afr Amer 92 mL/min (>60); Globulin 4.1 g/dL (2.2-4.2); Glucose 101 mg/dL (74-106); High Density Lipoprotein 58 mg/dL; Potassium 4.3 mmol/L (3.5-5.1); Protein, Total 7.4 g/dL (6.4-8.2); Sodium Level 141 mmol/L (136-145); Thyroid Stim Hormone (TSH) < 0.01 uIU/mL (0.358-3.74); Triglycerides 72 mg/dL; Very Low Density Lipoprotein 14 mg/dL (5-40)
[2020-05-10 10:03] LABS: T4 Free Direct 1.28 ng/dL (0.76-1.46)
== END ==
PROVIDERS: PCP Family Medicine; Visit Provider Family Medicine
DX: E78.5 Hyperlipidemia, unspecified (principal); R73.01 Impaired fasting glucose; E05.90 Thyrotoxicosis, unspecified without thyrotoxic crisis or storm
CPT/HCPCS: 36415; 80053; 80061; 83036; 84439; 84443; 85025

== ENCOUNTER → 2020-05-30 08:02 | Outpatient (CLI) | payer MEDICARE, OTHER, SELFPAY ==
[2019-02-17 13:03] VITALS: BMI 32.5
[2020-05-30 13:23] LABS: Free T3 4.1 pg/mL (2.18-3.98); T4 Free Direct 1.58 ng/dL (0.76-1.46); Thyroid Stim Hormone (TSH) < 0.01 uIU/mL (0.358-3.74)
== END ==
PROVIDERS: PCP Family Medicine; Visit Provider Family Medicine
DX: E05.90 Thyrotoxicosis, unspecified without thyrotoxic crisis or storm (principal)
CPT/HCPCS: 36415; 84439; 84443; 84481

== ENCOUNTER → 2020-06-24 09:17 | Outpatient (CLI) | payer MEDICARE, OTHER, SELFPAY ==
[2020-06-03 14:39] VITALS: BMI 28.0
[2020-06-24 12:43] LABS: Free T3 3.1 pg/mL (2.18-3.98); Thyroid Stim Hormone (TSH) 0.02 uIU/mL (0.358-3.74)
[2020-06-25 09:28] LABS: Thyroid Peroxidase AB 331 IU/mL (0-34)
== END ==
PROVIDERS: PCP Family Medicine; Referring Provider Internal Medicine Endocrinology, Diabetes & Metabolism; Visit Provider Internal Medicine Endocrinology, Diabetes & Metabolism
DX: E05.90 Thyrotoxicosis, unspecified without thyrotoxic crisis or storm (principal)
CPT/HCPCS: 36415; 84439; 84443; 84481; 86376

== ENCOUNTER → 2020-08-08 09:14 | Outpatient (CLI) | payer MEDICARE, OTHER, SELFPAY ==
--- NOTE | 2020-08-08 09:18 | RAD_ITS ---
STUDY: X-RAY - RIGHT RADIUS AND ULNA REASON FOR EXAM: Pain in the distal ulnar area, right forearm injury from a fall 2 days ago. TECHNIQUE: 2 view(s) of the forearm. COMPARISON: None. FINDINGS: There is no demonstrated soft tissue swelling. Normal visualized radius. Normal visualized ulna. RAD/Forearm 2 Views IMPRESSION: Normal x-ray examination of the right radius and ulna. Electronically Signed: Abilio Mitchell MD at 10:35 EDT Tel , Service support ,
--- NOTE | 2020-08-08 09:18 | RAD_ITS ---
STUDY: X-RAY - RIGHT WRIST REASON FOR EXAM: Pain distal ulnar area and fifth metacarpal, right wrist injury from a fall 2 days ago. TECHNIQUE: 3 view(s) of the wrist were obtained. COMPARISON: None. FINDINGS: Normal visualized distal radius and ulna. Normal radiocarpal articulation. Normal distal radioulnar articulation. Normal carpal bones. There is apfu-kr-pdlvnryb joint space narrowing of the triscaphe articulation. There is fzua-eo-qbnqlfvx joint space narrowing of the carpometacarpal articulation of the thumb. Normal second through fifth carpometacarpal articulations. Normal visualized metacarpal bones. There is a very small corticated ossicle adjacent to the ulnar styloid process. 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 Electronically Signed: Abilio Mitchell MD at 10:50 EDT Tel , Service support ,
--- NOTE | 2020-08-08 09:22 | RAD_ITS ---
STUDY: X-RAY - RIGHT HAND REASON FOR EXAM: Pain in fifth metacarpal and distal ulnar area after right hand injury from a fall 2 days ago. TECHNIQUE: 3 view(s) of the hand. COMPARISON: None. FINDINGS: Normal radiocarpal articulation. Normal distal radioulnar joint. Normal visualized carpal bones. There is qlvu-zh-mulkngfh joint space narrowing of the triscaphe articulation There is mild to moderate joint space narrowing of the carpometacarpal articulation of the thumb. Normal second through fifth carpometacarpal joints. Normal metacarpi. Normal metacarpophalangeal joint of the thumb. Normal interphalangeal joint of the thumb. Normal proximal and distal phalanges of the thumb. Normal metacarpophalangeal joints of the second through fifth fingers. There is joint space narrowing of the distal interphalangeal joints of the second through fifth fingers. Normal phalanges of the second through fifth fingers. There is a very small corticated ossicle adjacent to the ulnar styloid process. 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 Electronically Signed: Abilio Mitchell MD at 11:08 EDT Tel , Service support ,
== END ==
PROVIDERS: PCP Family Medicine; Referring Provider Family Medicine; Visit Provider Family Medicine
DX: M79.601 Pain in right arm (principal); M79.641 Pain in right hand
CPT/HCPCS: 73090; 73110; 73130

== ENCOUNTER 2020-08-11 21:15 | Emergency (ER) | payer MEDICARE, OTHER, SELFPAY ==
[2020-08-11 21:16] VITALS: BP 159/90; PULSE 84; RESP 18; TEMP 35.8; O2SAT 95; BMI 29.7
--- NOTE | 2020-08-11 21:22 | RAD_ITS ---
STUDY: X-RAY CHEST REASON FOR EXAM: Female, 70 years old. rib pain -- fell and has rib pain on the r TECHNIQUE: Frontal and lateral views of the chest. COMPARISON: 10/12/2016. FINDINGS: There is hyperinflation of the lungs consistent with chronic obstructive lung disease (COPD). No infiltrates or effusions. There is no demonstrated pleural abnormality. Normal size heart. Normal mediastinum and kishan. Normal visualized pulmonary arteries. Normal visualized aortic arch and descending thoracic aorta. There are diffuse degenerative changes of the visualized thoracic spine. Normal visualized ribs, clavicles, and shoulders. There is no demonstrated abnormality of the visualized soft tissue structures of the upper abdomen. RAD/Chest PA and Lateral IMPRESSION: No definite acute or significant abnormality seen. Question of COPD. Electronically Signed: Sunny Mueller MD at 21:43 EDT , Service support ,
--- NOTE | 2020-08-11 22:12 | CT_ITS ---
STUDY: CT ABDOMEN AND PELVIS WITH CONTRAST REASON FOR EXAM: Female, 70 years old. Fall, RUQ pain RADIATION DOSAGE (If Supplied By Facility): CTDIvol = ( 14.715 ) mGy, DLP = ( 1104.00 ) mGycm TECHNIQUE: Transaxial images were obtained from the dome of the diaphragm to the symphysis pubis without oral contrast. IV 100mL Isovue-300 was administered. Sagittal and coronal images were reconstructed. Individualized dose optimization techniques were used for this CT. COMPARISON: None. FINDINGS: The visualized lung bases are unremarkable. The visualized portions of the heart are within normal limits. Normal liver with several incidental small cysts. Normal gallbladder and extrahepatic biliary system. Normal spleen. Normal pancreas. Normal bilateral adrenal glands. Normal right kidney. Normal left kidney. Evaluation of the GI tract is limited by absence of oral contrast. Cannot exclude stomach wall thickening. No dilated loops of bowel or evidence for obstruction. Cannot exclude segmental thickening of the mack of the small or large bowel. Cannot exclude enteritis or colitis. Moderate diffuse fecal retention. Appendix within normal limits. There is diffuse atherosclerotic calcification of the abdominal aorta, without a demonstrated aneurysm. Normal inferior vena cava. Normal retroperitoneum. Normal urinary bladder. There is absence of the uterus consistent with a prior hysterectomy. Normal abdominal wall. Normal osseous structures. CT/Abdomen/Pelvis W IV Cont ONLY IMPRESSION: No definite acute or significant abnormality seen. Electronically Signed: Sunny Mueller MD at 23:52 EDT , Service support ,
[2020-08-11] MEDS: 0.9% Normal Saline 1,000 ML 125 ML IV (22:47)
[2020-08-11] MEDS: Morphine 4 MG/ML Syringe IV (22:47)
[2020-08-11] MEDS: Ondansetron 4 MG/2 ML Vial IV (22:47)
[2020-08-11 22:58] LABS: Basophil# 0.02 X10^3/uL; Basophil% 0.3 % (0-1); Eosinophil# 0.09 X10^3/uL; Eosinophils% 1.3 % (0-5); Hematocrit 42.2 % (37-47); Mean Corp Hgb Conc 33.2 g/dL (32-36); Mean Corpuscular Hgb 29.4 pg (27.0-32.0); Mean Corpuscular Volume 88.7 fL (81-99); Mean Platelet Vol. 9.4 fl (6.2-12.0); Monocyte# 0.78 X10^3/uL; Monocyte% 11.3 % (0-10); NRBC Flagged by Analyzer 0 % (0-5); Neutrophil # 3.99 X10^3/uL (2.7-7.7); Neutrophil % 57.8 % (47-70); Platelet Count 207 K/mm3 (150-450); RBC Distribution Width SD 39.6 fl (35.1-43.9); Red Blood Count 4.76 M/mm3 (4.2-5.4); White Blood Count 6.9 K/mm3 (4.4-11.0)
[2020-08-11 23:17] LABS: ALB/GLOB Ratio 0.9 RATIO (0.9-2.4); AST(SGOT) 13 U/L (15-37); Alanine Aminotransfer ALT/SGPT 19 U/L (13-56); Albumin, Serum 3.7 g/dL (3.2-5.0); Alkaline Phosphatase 105 U/L (45-117); Anion Gap 6 (5-15); BUN 19 mg/dL (7-18); BUN/Creat Ratio 24.3 RATIO (10-20); Calcium,Total 9.1 mg/dL (8.5-10.1); Chloride 104 mmol/L (98-107); Creatinine, Serum 0.78 mg/dL (0.55-1.02); EST Glomerular Filtration Rate 78 mL/min (>60); Est Glom Filt Rate - Afr Amer 94 mL/min (>60); Estimated Creatinine Clearance 52.36 ml/min; Globulin 4.1 g/dL (2.2-4.2); Glucose 104 mg/dL (74-106); Potassium 4.2 mmol/L (3.5-5.1); Protein, Total 7.8 g/dL (6.4-8.2); Sodium Level 138 mmol/L (136-145)
--- NOTE | 2020-08-11 23:54 | EDS_ITS ---
HPI History of Present Illness Chief Complaint: Chest Other Narrative Narrative: 70-year-old patient reports that 5 days ago she tripped over her dog and fell. Since that time she has had a sharp right upper quadrant abdominal and chest pain. States 10 out of 10 severity. She denies any shortness of breath. She reports that she has right wrist pain that is 8 out of 10 in severity. However, she had this x-rayed yesterday. Patient denies any blow to the head or loss of consciousness. She not on anticoagulants. She denies any neck, back, shoulder, or left wrist pain. No hip pain. [facility] Medical History Constipation Glaucoma Graves disease History of COVID-19 Hx of chest pain Hyperlipidemia Hyperthyroidism IBS (irritable bowel syndrome) Home Medications aspirin 81 mg PO DAILY 01/31/18 [History Last Taken 01/30/18] omega-3 fatty acids 1,000 mg capsule 1,000 mg PO TID cap 01/31/18 [History Last Taken Unknown] phytosterol 450 mg tablet 2 tab PO BID tab 01/31/18 [History Last Taken Unknown] lovastatin 10 mg tablet 10 mg PO DAILY 11/20/18 [History Last Taken Unknown] ascorbic acid (vitamin C) 1,000 mg tablet 1 g PO Q6H 06/03/20 [History Last Taken Unknown] coenzyme Q10 100 mg capsule 100 mg PO DAILY 06/03/20 [History Last Taken Unknown] inulin-chromium picolinate 2 gram-100 mcg chewable tablet tab PO 06/03/20 [History Last Taken Unknown] methimazole 5 mg tablet 5 mg PO DAILY #30 tab 06/03/20 [Rx Last Taken Unknown] resveratrol-quercetin 100 mg-100 mg tablet tab PO 06/03/20 [History Last Taken Unknown] Ttmuqeelovwkhu31nv/lido 5% 1 ea RC BID #60 supp 06/30/20 [Rx Last Taken Unknown] oxycodone-acetaminophen [Percocet] 1 tab PO Q6H PRN 3 Days #10 tab 08/11/20 [Rx Last Taken Unknown] sennosides [senna] 8.6 mg PO DAILY #7 cap 08/11/20 [Rx Last Taken Unknown] Allergy/AdvReac Type Severity Reaction Status Date / Time doxycycline Allergy Unknown Verified 08/11/20 21:18 codeine AdvReac Mild severe Verified 08/11/20 21:18 constipation Family History Aunt Breast cancer Mother Neuropathy Diabetes Pacemaker Surgical History History of colonoscopy (~2007) History of nasal septoplasty History of wisdom tooth extraction Hx of hysterectomy Social History Smoking Status: Former smoker alcohol intake: current Alcohol type: wine ROS ROS ED Constitutional Constitutional ED: Denies chills, fever(s) or sweats Eyes Eyes: Denies change in vision ENT ENT ED: Denies sore throat Cardiovascular Cardiovascular: Reports chest pain Respiratory/Chest Respiratory/Chest: Denies cough, dyspnea or dyspnea on exertion Gastrointestinal Gastrointestinal: Denies abdominal pain, diarrhea, melena, nausea or vomiting Genitourinary Genitourinary ED: Denies dysuria or urinary frequency Musculoskeletal Musculoskeletal: Denies myalgias Integumentary Denies rash Neurologic Neurologic: Denies headache(s), paresthesias or weakness EXAM Physical Exam Const Vital Signs: 08/11/20 21:16 08/11/20 22:51 Temperature 96.5 F L Temperature Source Temporal Pulse Rate 84 Respiratory Rate 18 Respiratory Effort Normal Respiratory Pattern Normal Blood Pressure 159/90 H Blood Pressure Mean 113 Pulse Ox 95 Oxygen Delivery Method Room Air Positive well nourished and well developed General Appearance ED: well developed HEENT normocephalic and atraumatic Eyes PERRL Neck full ROM, no lymphadenopathy, supple and no JVD Neck Narrative: No vertebral tenderness. Full ROM without difficulty. Cleared by NEXUS criteria. General: Negative for tenderness Chest Wall Chest: Negative for tenderness Resp normal respiratory effort and clear to auscultation bilaterally Resp Narrative: Moderate tenderness palpation of the lower ribs on the right. Effort and Inspection: pain with movement; Negative for respiratory distress Cardio regular rate, regular rhythm and no murmurs Rate: regular rate Rhythm: regular rhythm GI normal to inspection, nondistended, normoactive bowel sounds and soft to palpation; Negative for non-tender GI Narrative: Moderate tenderness palpation the right upper quadrant. No peritoneal signs. Back/Spine Back/Spine Narrative: No vertebral tenderness. Full ROM without difficulty. Extremity normal to inspection and full ROM General Extremety ED: Negative for edema or tenderness General Extremity: Negative for edema Neuro oriented x3, CN's II-XII intact bilaterally and no sensory deficits noted Sensorium / Orientation: awake and alert Motor Exam: strength 5/5 throughout Psych mental status grossly normal Skin no rashes or lesions noted MDM MDM Lab Data Labs: Laboratory Results - last 24 hr 08/11/20 08/11/20 22:50 22:50 WBC 6.9 RBC 4.76 Hgb 14.0 Hct 42.2 MCV 88.7 MCH 29.4 MCHC 33.2 RDW Std Deviation 39.6 RDW Coeff of Manny 12.0 Plt Count 207 MPV 9.4 Immature Gran % (Auto) 0.300 Neut % (Auto) 57.8 Lymph % (Auto) 29.0 Dauphin % (Auto) 11.3 H Eos % (Auto) 1.3 Baso % (Auto) 0.3 Absolute Neuts (auto) 4.0 Absolute Lymphs (auto) 2.00 Nucleated RBC % 0 Sodium 138 Potassium 4.2 Chloride 104 Carbon Dioxide 28.0 Anion Gap 6 BUN 19 H Creatinine 0.78 Estim Creat Clear Calc 52.36 Est GFR (MDRD) Af Amer 94 Est GFR (MDRD) Non-Af 78 BUN/Creatinine Ratio 24.3 H Glucose 104 Calcium 9.1 Total Bilirubin 0.30 AST 13 L ALT 19 Alkaline Phosphatase 105 Total Protein 7.8 Albumin 3.7 Globulin 4.1 Albumin/Globulin Ratio 0.9 Radiography Diagnostic Testing: Radiology Impression Chest X-Ray 08/11/20 21:22 IMPRESSION: No definite acute or significant abnormality seen. Question of COPD. Electronically Signed: Sunny Mueller MD at 21:43 EDT , Service support , Abdomen/Pelvis CT 08/11/20 22:12 IMPRESSION: No definite acute or significant abnormality seen. Electronically Signed: Sunny Mueller MD at 23:52 EDT , Service support , Chest x-ray as read by me shows no acute disease. Treatment and Re-Evaluation Comments:: Emergency department course: Patient had an IV placed. She was given morphine and Zofran IV. She is resting more comfortably. Treatment plan: Patient will be discharged with Percocet and senna. She also given an incentive spirometer. Instructed to follow-up with her primary care physician in 7 to 10 days if not improving. Return to the emergency department for any worsening symptoms. Disposition: To home in improved and stable condition. Discharge Plan Triage Chief Complaint: Chest Other ED Provider: Panfilo Ramsey Dx/Rx/DC Orders Clinical Impression: Fall, Closed rib fracture Instructions: ED Rib Contusion or Minor Fracture Prescriptions: New oxycodone-acetaminophen [Percocet] 5-325 mg tablet 1 tab PO Q6H PRN (Reason: pain) 3 Days Qty: 10 RF: 0 senna 8.6 mg capsule 8.6 mg PO DAILY Qty: 7 RF: 0 No Action omega-3 fatty acids [Fish Oil Concentrate] 1,000 mg capsule 1,000 mg PO TID RF: 0 phytosterol 450 mg tablet 2 tab PO BID RF: 0 lovastatin 10 mg tablet 10 mg PO DAILY RF: 0 Fiber Gummies (with chromium) 2-100 gram-mcg tablet,chewable PO RF: 0 resveratrol-quercetin 100-100 mg tablet PO RF: 0 coenzyme Q10 100 mg capsule 100 mg PO DAILY RF: 0 ascorbic acid (vitamin C) 1,000 mg tablet 1 g PO Q6H RF: 0 methimazole 5 mg tablet 5 mg PO DAILY Qty: 30 RF: 4 Lzdqiksnfjyesz65ih/lido 5% 1 ea RC BID Qty: 60 RF: 2 aspirin 81 MG tablet,chewable 81 mg PO DAILY RF: 0 Primary Care Provider: Barney High Referrals: Barney High [Primary Care Provider] - 10-14 Days if not better
== END 2020-08-12 00:07 | disposition home or self-care (01) ==
LOC: ED 22:11
PROVIDERS: Emergency Provider Emergency Medicine; PCP Family Medicine
DX: S22.39XA Fracture of one rib, unspecified side, initial encounter for closed fracture (principal); M25.531 Pain in right wrist; W01.0XXA Fall on same level from slipping, tripping and stumbling without subsequent striking against object, initial encounter; Y93.9 Activity, unspecified; Y92.9 Unspecified place or not applicable; H40.9 Unspecified glaucoma; E05.00 Thyrotoxicosis with diffuse goiter without thyrotoxic crisis or storm; E78.5 Hyperlipidemia, unspecified; K58.9 Irritable bowel syndrome, unspecified; Z86.16 Personal history of COVID-19; Z79.82 Long term (current) use of aspirin; Z79.899 Other long term (current) drug therapy; Z87.891 Personal history of nicotine dependence
CPT/HCPCS: 71046; 74177; 80053; 85025; 96361; 96374; 96375; 99251; 99285; J7030; Q9967; A4216; G0463; J2405

== ENCOUNTER → 2020-08-19 10:27 | Outpatient (CLI) | payer MEDICARE, OTHER, SELFPAY ==
[2020-08-11 21:16] VITALS: BMI 29.7
[2020-08-19 12:59] LABS: Free T3 2.4 pg/mL (2.18-3.98); T4 Free Direct 0.77 ng/dL (0.76-1.46); Thyroid Stim Hormone (TSH) 2.29 uIU/mL (0.358-3.74)
== END ==
PROVIDERS: PCP Family Medicine; Referring Provider Internal Medicine Endocrinology, Diabetes & Metabolism; Visit Provider Internal Medicine Endocrinology, Diabetes & Metabolism
DX: E05.90 Thyrotoxicosis, unspecified without thyrotoxic crisis or storm (principal)
CPT/HCPCS: 36415; 84439; 84443; 84481

== ENCOUNTER → 2020-08-26 11:23 | Outpatient (CLI) | payer MEDICARE, OTHER, SELFPAY ==
[2020-08-11 21:16] VITALS: BMI 29.7
--- NOTE | 2020-08-26 11:27 | BI_ITS ---
MAMMOGRAPHY - BILATERAL SCREENING 3-D TOMOSYNTHESIS REASON FOR EXAM: Female, 70 years old. Routine screening PERTINENT HISTORY: Aunt with breast cancer.. TECHNIQUE: 2-D mammograms and 3-D Tomosynthesis of the breast (s) were performed. CAD was performed. COMPARISON: 08/11/2019 FINDINGS: The breast composition is composed of scattered fibroglandular density. Scattered benign calcifications are seen. No dense spiculated masses or suspicious microcalcifications are identified. No architectural distortion is identified. There is no skin thickening or retraction. There has been no significant change since the prior study. BI/SCRN MAMM (CAD)W/SILVIA BILAT IMPRESSION: No mammographic signs of malignancy. Routine yearly mammograms recommended. ASSESSMENT CATEGORY: BIRADS Category 2: Benign. A letter regarding these results will be sent to the patient by the facility within 30 days. FOLLOW UP RECOMMENDATION: Yearly follow up mammogram recommended. (A) Approximately 10% of breast cancers are not detected by mammography. A normal mammogram should not delay biopsy of a clinically suspicious abnormality. Electronically Signed: Jacob Coats MD at 12:10 EDT , Service support ,
== END ==
PROVIDERS: PCP Family Medicine; Referring Provider Family Medicine; Visit Provider Family Medicine
DX: Z12.31 Encounter for screening mammogram for malignant neoplasm of breast (principal)
CPT/HCPCS: 77063; 77067

== ENCOUNTER → 2020-10-24 15:53 | Outpatient (CLI) | payer MEDICARE, OTHER, SELFPAY ==
[2020-10-24 17:22] LABS: T4 Free Direct 0.88 ng/dL (0.76-1.46); Thyroid Stim Hormone (TSH) 2.33 uIU/mL (0.358-3.74)
== END ==
PROVIDERS: PCP Internal Medicine; Visit Provider Internal Medicine Endocrinology, Diabetes & Metabolism
DX: E05.90 Thyrotoxicosis, unspecified without thyrotoxic crisis or storm (principal)
CPT/HCPCS: 36415; 84439; 84443; 84481

== ENCOUNTER → 2020-11-15 14:49 | Outpatient (CLI) | payer MEDICARE, OTHER, SELFPAY ==
[2020-10-27 13:34] VITALS: BMI 29.7
--- NOTE | 2020-11-15 14:55 | BD_ITS ---
STUDY: DUAL ENERGY X-RAY ABSORPTIOMETRY / DXA REASON FOR EXAM: Female, 70 years old. Post menopause TECHNIQUE: Bone Mineral Density (BMD) measurements of lumbar spine and bilateral hips were obtained. COMPARISON: Comparison is made with prior examination 06/19/2012. FINDINGS: Lumbar Spine (L1-L4): g/cm2 (0.920) / T-score (-1.2) / Z-score (0.8) Findings are suggestive of osteopenia with a low fracture risk. Left Femur Total: g/cm2 (0.898) / T-score (-0.4) / Z-score (1.1) Left Femoral Neck: g/cm2 (0.790) / T-score (-0.5) / Z-score (1.2) Right Femur Total: g/cm2 (0.87.) / T-score (-0.6) / Z-score (0.9) Right Femoral Neck: g/cm2 (0.694) / T-score (-1.4) / Z-score (0.3) The T-Scores on the most recent prior examination were: Lumbar Spine (L1-L4): There has been worsening of bone density since the previous examination. Left Femur Total: which represents a worsening of 6.2%. Right Femur Total: which represents a worsening of 2.7%. BD/Dexa Bone Density Study IMPRESSION: The patient is considered osteopenic as outlined below according to World Riaz Organization (WHO) criteria with a low fracture risk. There has been worsening of bone density since the previous examination. Reference Information: The T-score is the number of standard deviations above or below the standard which is normal for young adults at their peak bone mineral density. The World Health Organization (WHO) interprets the T-scores as follows: Above -1 Normal bone density Between -1 and -2.5 Osteopenia Equal to / or below -2.5 Osteoporosis As a practical clinical guideline, osteopenia may be graded as follows: Mild -1 through -1.5 Moderate -1.6 through -2.0 Severe -2.1 through -2.4 The Z-score is the number of standard deviations above or below age-matched controls. A Z-score of less than -1.5 would be considered abnormal. References: 1. NIH Osteoporosis and Related Bone Diseases www osteo.org 2. International Society for Clinical Densitometry www iscd.org 3. National Osteoporosis Foundation www nof.org Electronically Signed: Carl Phillip MD at 20:04 EDT , Service support ,
== END ==
PROVIDERS: PCP Internal Medicine; Referring Provider Internal Medicine Endocrinology, Diabetes & Metabolism; Visit Provider Internal Medicine Endocrinology, Diabetes & Metabolism
DX: Z78.0 Asymptomatic menopausal state (principal)
CPT/HCPCS: 77080

== ENCOUNTER → 2020-12-20 | Outpatient (CLI) | payer MEDICARE, OTHER, SELFPAY | END | disposition home or self-care (01) | LOC: LABSPEC 15:47 | PROVIDERS: PCP Internal Medicine; Referring Provider Physician Assistant Surgical; Visit Provider Physician Assistant Surgical | DX: R50.9 Fever, unspecified (principal) | CPT/HCPCS: 87635; U0005; U0003 ==

== ENCOUNTER → 2021-02-09 09:10 | Outpatient (CLI) | payer MEDICARE, OTHER, SELFPAY ==
[2021-02-09 10:01] LABS: Free T3 2.7 pg/mL (2.18-3.98); Thyroid Stim Hormone (TSH) 6.79 uIU/mL (0.358-3.74)
== END ==
PROVIDERS: PCP Internal Medicine; Visit Provider Internal Medicine Endocrinology, Diabetes & Metabolism
DX: E05.90 Thyrotoxicosis, unspecified without thyrotoxic crisis or storm (principal); K58.2 Mixed irritable bowel syndrome
CPT/HCPCS: 36415; 84439; 84443; 84481

== ENCOUNTER 2021-04-12 10:54 | Outpatient (CLI) | payer MEDICARE, OTHER, SELFPAY | END 2021-04-12 23:59 | disposition short-term general hospital (02) | LOC: LABSPEC 10:55 | PROVIDERS: PCP Internal Medicine; Visit Provider Physician Assistant | DX: U07.1 COVID-19 (principal); R09.81 Nasal congestion; J06.9 Acute upper respiratory infection, unspecified | CPT/HCPCS: 87635; U0003; U0005 ==

== ENCOUNTER 2021-04-18 11:29 | Outpatient (CLI) | payer MEDICARE, OTHER, SELFPAY ==
[2021-04-18 11:58] VITALS: BP 151/77; PULSE 62; RESP 16; TEMP 36.6; O2SAT 98; BMI 29.1
[2021-04-18] MEDS: 0.9% Saline Lock 10 ML Syringe IV (12:04)
[2021-04-18 12:40] VITALS: BP 131/70; PULSE 61; RESP 16; TEMP 36.8; O2SAT 97
[2021-04-18 13:39] VITALS: BP 144/77; PULSE 55; RESP 16; TEMP 36.5; O2SAT 100
== END 2021-04-18 23:59 | disposition home or self-care (01) ==
LOC: MS3OUT 11:30 → MS3 11:31
PROVIDERS: PCP Internal Medicine; Referring Provider Nurse Practitioner Adult Health; Visit Provider Nurse Practitioner Adult Health
DX: U07.1 COVID-19 (principal)
CPT/HCPCS: J7050; M0243; A4216; Q0244

== ENCOUNTER 2021-05-19 13:26 | Outpatient (CLI) | payer MEDICARE, OTHER, SELFPAY ==
[2021-05-19 15:12] LABS: Absolute Neutrophil Count 2.8 X10^3/uL (2.0-7.7); Basophil# 0.02 X10^3/uL; Basophil% 0.4 % (0-1); Eosinophil# 0.09 X10^3/uL; Eosinophils% 1.9 % (0-5); Hemoglobin 13.4 g/dL (12.0-15.0); Lymphocyte % 27.2 % (19-41); Mean Corp Hgb Conc 33.5 g/dL (32-36); Mean Corpuscular Hgb 30.6 pg (27.0-32.0); Mean Corpuscular Volume 91.3 fL (81-99); Mean Platelet Vol. 9.8 fl (6.2-12.0); Monocyte# 0.55 X10^3/uL; Monocyte% 11.5 % (0-10); NRBC Flagged by Analyzer 0 % (0-5); Neutrophil # 2.81 X10^3/uL (2.7-7.7); Neutrophil % 58.8 % (47-70); Platelet Count 209 K/mm3 (150-450); RBC Distribution Width CV 11.8 % (11.6-14.6); Red Blood Count 4.38 M/mm3 (4.2-5.4); White Blood Count 4.8 K/mm3 (4.4-11.0)
[2021-05-19 15:24] LABS: ALB/GLOB Ratio 0.8 RATIO (0.9-2.4); AST(SGOT) 15 U/L (15-37); Alanine Aminotransfer ALT/SGPT 20 U/L (13-56); Albumin, Serum 3.3 g/dL (3.2-5.0); Alkaline Phosphatase 88 U/L (45-117); Anion Gap 6 (5-15); BUN 13 mg/dL (7-18); BUN/Creat Ratio 14.7 RATIO (10-20); Calcium,Total 8.4 mg/dL (8.5-10.1); Chloride 107 mmol/L (98-107); Creatinine, Serum 0.88 mg/dL (0.55-1.02); EST Glomerular Filtration Rate 67 mL/min (>60); Est Glom Filt Rate - Afr Amer 81 mL/min (>60); Globulin 3.9 g/dL (2.2-4.2); Glucose 109 mg/dL (74-106); Potassium 3.9 mmol/L (3.5-5.1); Protein, Total 7.2 g/dL (6.4-8.2); Sodium Level 139 mmol/L (136-145)
[2021-05-19 15:29] LABS: Vitamin B12 324 pg/mL (211-911)
[2021-05-19 16:19] LABS: Free T3 2.7 pg/mL (2.18-3.98); T4 Free Direct 0.87 ng/dL (0.76-1.46)
== END 2021-05-19 23:59 | disposition home or self-care (01) ==
LOC: BIMLAB 13:27
PROVIDERS: Internal Medicine Endocrinology, Diabetes & Metabolism; PCP Internal Medicine; Referring Provider Internal Medicine; Visit Provider Internal Medicine
DX: K59.00 Constipation, unspecified (principal); E05.90 Thyrotoxicosis, unspecified without thyrotoxic crisis or storm; E78.5 Hyperlipidemia, unspecified; G62.9 Polyneuropathy, unspecified
CPT/HCPCS: 36415; 80053; 82607; 84439; 84443; 84481; 85025

== ENCOUNTER 2021-06-20 18:48 | Outpatient (CLI) | payer MEDICARE, OTHER, SELFPAY ==
--- NOTE | 2021-06-20 18:50 | CT_ITS ---
STUDY: CT ABDOMEN AND PELVIS WITH CONTRAST REASON FOR EXAM: Female, 71 years old. Weakness, abdominal pain, constipation RADIATION DOSAGE (If Supplied By Facility): CTDIvol = ( 16.24 ) mGy, DLP = ( 1003.42 ) mGycm TECHNIQUE: Transaxial images were obtained from the dome of the diaphragm to the symphysis pubis with oral contrast. Oral and amp; IV Readi-CAT and amp; 100mL Isovue-300 was administered. Sagittal and coronal images were reconstructed. Individualized dose optimization techniques were used for this CT. COMPARISON: 08/11/2020 FINDINGS: The visualized lung bases are unremarkable. The visualized portions of the heart are within normal limits. Liver is unremarkable aside from scattered simple hepatic cysts. Normal gallbladder and extrahepatic biliary system. Normal spleen. Normal pancreas. Normal bilateral adrenal glands. Normal right kidney. Normal left kidney. Normal visualized stomach. Normal small intestine. Retained stool noted throughout the colon which may be impacted. There is non-visualization of the appendix. There is diffuse atherosclerotic calcification of the abdominal aorta, without a demonstrated aneurysm. Normal inferior vena cava. Normal retroperitoneum. Normal urinary bladder. Normal abdominal wall. Mild degenerative bony changes CT/Abdomen/Pelvis WITH Contrast IMPRESSION: Scattered subcentimeter hepatic cysts, no specific follow-up needed. Retained stool noted throughout the colon which may be impacted No free intraperitoneal fluid, air, or suspicious adenopathy Electronically Signed: Jacob Coats MD at 12:31 EDT ,
[2021-06-20 19:06] LABS: CREATININE FINGERSTICK 0.7 mg/dL (0.55-1.02); EGFR FINGERSTICK > 60.0000 mL/min (>60)
== END 2021-06-20 23:59 | disposition home or self-care (01) ==
LOC: CT 18:50
PROVIDERS: PCP Internal Medicine; Visit Provider Nurse Practitioner Adult Health
DX: R10.9 Unspecified abdominal pain (principal)
CPT/HCPCS: 74177; Q9967

== ENCOUNTER → 2021-08-07 | Outpatient (CLI) | payer MEDICARE, OTHER, SELFPAY ==
[2021-08-07 16:15] LABS: Free T3 3.5 pg/mL (2.18-3.98); Thyroid Stim Hormone (TSH) 0.53 uIU/mL (0.358-3.74)
== END | disposition home or self-care (01) ==
LOC: BIMLAB 14:45
PROVIDERS: PCP Internal Medicine; Referring Provider Internal Medicine Endocrinology, Diabetes & Metabolism; Visit Provider Internal Medicine Endocrinology, Diabetes & Metabolism
DX: E05.90 Thyrotoxicosis, unspecified without thyrotoxic crisis or storm (principal); E78.5 Hyperlipidemia, unspecified
CPT/HCPCS: 36415; 84439; 84443; 84481

== ENCOUNTER 2021-09-27 12:00 | Emergency (ER) | payer MEDICARE, OTHER, SELFPAY ==
[2021-09-27 12:01] VITALS: BP 142/100; PULSE 80; RESP 14; TEMP 36.3; O2SAT 96; BMI 29.7
--- NOTE | 2021-09-27 13:03 | EKG12_ITS ---
Test Reason : HYPERTENSION Blood Pressure : / mmHG Vent. Rate : 063 BPM Atrial Rate : 063 BPM P-R Int : 148 ms QRS Dur : 076 ms QT Int : 406 ms P-R-T Axes : 048 066 060 degrees QTc Int : 415 ms Normal sinus rhythm Normal ECG Confirmed by SILVIANO BECKER, BINDU ([id number]), assignment editor LUISITO LAINEZ ([id number]) on 09/29/2021 11:29:37 AM Referred By: VLAD Confirmed By:BINDU SHORE MD
--- NOTE | 2021-09-27 13:25 | RAD_ITS ---
STUDY: X-RAY CHEST REASON FOR EXAM: Female, 71 years old. Hypertension TECHNIQUE: Single AP portable view of the chest. COMPARISON: 08/11/2020 FINDINGS: The lungs are clear and expanded. There is no demonstrated pleural abnormality. Normal size heart. Normal mediastinum and kishan. Normal visualized pulmonary arteries. Normal visualized aortic arch and descending thoracic aorta. Normal visualized thoracic spine. Normal visualized ribs, clavicles, and shoulders. There is no demonstrated abnormality of the visualized soft tissue structures of the upper abdomen. RAD/Chest 1 View (Portable) IMPRESSION: Normal x-ray examination of the chest. Electronically Signed: Chano Roblero MD at 13:47 EDT ,
[2021-09-27 13:34] LABS: Absolute Lymphocyte Count 1.11 X10^3/uL (0.83-4.51); Absolute Neutrophil Count 3.7 X10^3/uL (2.0-7.7); Basophil# 0.02 X10^3/uL; Basophil% 0.4 % (0-1); Eosinophil# 0.07 X10^3/uL; Eosinophils% 1.3 % (0-5); Hematocrit 40.2 % (37-47); Hemoglobin 13.3 g/dL (12.0-15.0); Lymphocyte # 1.11 X10^3/ul (0.83-4.51); Mean Corp Hgb Conc 33.1 g/dL (32-36); Mean Corpuscular Hgb 30.1 pg (27.0-32.0); Mean Platelet Vol. 9.5 fl (6.2-12.0); Monocyte# 0.63 X10^3/uL; Monocyte% 11.4 % (0-10); NRBC Flagged by Analyzer 0 % (0-5); Neutrophil % 66.7 % (47-70); Platelet Count 183 K/mm3 (150-450); Red Blood Count 4.42 M/mm3 (4.2-5.4); White Blood Count 5.5 K/mm3 (4.4-11.0)
[2021-09-27 13:53] LABS: ALB/GLOB Ratio 0.9 RATIO (0.9-2.4); AST(SGOT) 13 U/L (15-37); Alanine Aminotransfer ALT/SGPT 19 U/L (13-56); Albumin, Serum 3.4 g/dL (3.2-5.0); Alkaline Phosphatase 81 U/L (45-117); Anion Gap 4 (5-15); BUN 16 mg/dL (7-18); BUN/Creat Ratio 21.4 RATIO (10-20); Calcium,Total 8.8 mg/dL (8.5-10.1); Chloride 109 mmol/L (98-107); Creatinine, Serum 0.75 mg/dL (0.55-1.02); EST Glomerular Filtration Rate 82 mL/min (>60); Est Glom Filt Rate - Afr Amer 99 mL/min (>60); Estimated Creatinine Clearance 51.63 ml/min; Globulin 3.6 g/dL (2.2-4.2); Glucose 99 mg/dL (74-106); Potassium 4.2 mmol/L (3.5-5.1); Sodium Level 139 mmol/L (136-145); Troponin-I HS < 3 pg/mL (3.0-54.0)
[2021-09-27 14:27] VITALS: BP 139/67; PULSE 67; RESP 20; O2SAT 95
--- NOTE | 2021-09-27 14:48 | EDS_ITS ---
HPI History of Present Illness Chief Complaint: Hypertension Informant: patient Onset/Context/Timing Onset: Today Context: Gradual Onset Timing: Continuous Worsened by: Nothing Relieved by: Nothing Narrative Narrative: Patient with elevated blood pressures that began today. Patient was seen yesterday at the [facility] clinic and was noted to have elevated blood pressures. Patient checked her blood pressure at home today and it was 213/100. Patient then went to the pharmacy today and checked her blood pressure and it was 198/90. Patient denies any chest pain or shortness of breath. Patient denies any headaches. Patient denies any nausea or vomiting. Patient denies any diaphoresis. [facility] Medical History Constipation Epigastric pain GERD (gastroesophageal reflux disease) Glaucoma Graves disease Health care maintenance History of COVID-19 Hx of chest pain Hyperlipidemia Hypertension Hyperthyroidism IBS (irritable bowel syndrome) Neuropathy Osteopenia Post-menopause Preventative health skilled nursing Medications ascorbic acid (vitamin C) 1,000 mg tablet 1 g PO Q6H 06/03/20 [History Last Taken Unknown] coenzyme Q10 100 mg capsule 100 mg PO DAILY 06/03/20 [History Last Taken Unknown] omega-3 fatty acids 1,000 mg capsule (Fish Oil Concentrate) 1,000 mg PO ONCE 11/18/20 [History Last Taken Unknown] calcium carbonate 500 mg calcium (1,250 mg) tablet (Calcium 500) 500 mg PO BID 02/09/21 [History Last Taken Unknown] inulin 2 gram chewable tablet (Fiber Gummies) 2 g PO DAILY 02/09/21 [History Last Taken Unknown] zinc acetate 25 mg (zinc) capsule 25 mg PO DAILY 02/09/21 [History Last Taken Unknown] hydrocortisone 2.5 % topical cream 1 applic topical QHS PRN rash #453.6 grams 06/30/21 [Rx Last Taken Unknown] mecobalamin (vitamin B12) 5,000 mcg lozenge 5,000 mcg PO DAILY 06/30/21 [History Last Taken Unknown] methimazole 5 mg tablet 5 mg PO .Mon-Saturday #26 tabs 08/07/21 [Rx Last Taken Unknown] cholecalciferol (vitamin D3) 50 mcg (2,000 unit) capsule 50 mcg PO DAILY 08/15/21 [History Last Taken Unknown] blood pressure monitor #1 ea 09/25/21 [Rx Last Taken Unknown] handicap placard See Rx Instructions .Route .COMPLEX #1 unit 09/25/21 [Rx Last Taken Unknown] Allergy/AdvReac Type Severity Reaction Status Date / Time doxycycline Allergy Unknown Verified 09/27/21 12:03 codeine AdvReac Mild severe Verified 09/27/21 12:03 constipation Family History Aunt Breast cancer Mother Neuropathy Diabetes Pacemaker Surgical History History of colonoscopy (~2007) History of nasal septoplasty History of wisdom tooth extraction Hx of hysterectomy Social History Smoking Status: Former smoker alcohol intake: current Alcohol type: wine substance use type: does not use ROS ROS ED Constitutional Constitutional ED: Denies chills or fever(s) Eyes Eyes: Denies blurry vision or change in vision ENT ENT ED: Denies rhinorrhea or sore throat Cardiovascular Cardiovascular: Denies chest pain or palpitations Respiratory/Chest Respiratory/Chest: Denies cough or dyspnea Gastrointestinal Gastrointestinal: Denies nausea or vomiting Genitourinary Genitourinary ED: Denies dysuria or hematuria Musculoskeletal Musculoskeletal: Denies back pain or neck pain Integumentary Denies abscess or rash Neurologic Neurologic: Denies headache(s) or weakness Allergic/Immunologic Allergic/Immunologic ED: Denies mouth swelling or urticaria EXAM Physical Exam Const Vital Signs: 09/27/21 12:01 09/27/21 12:19 09/27/21 14:27 Temperature 97.3 F L Temperature Source Temporal Pulse Rate 80 67 Respiratory Rate 14 20 H Respiratory Effort Normal Non-Labored Respiratory Pattern Normal Blood Pressure 142/100 H 139/67 H Blood Pressure Mean 114 91 Pulse Ox 96 95 Oxygen Delivery Method Room Air Positive well nourished and well developed General Appearance ED: well developed HEENT Reports moist mucous membranes Neck supple and no JVD Resp normal respiratory effort and clear to auscultation bilaterally Cardio regular rate, regular rhythm and no murmurs GI normal to inspection, nondistended, normoactive bowel sounds and non-tender Palpation: soft Extremity normal to inspection General Extremety ED: Negative for edema or tenderness General Extremity: Negative for edema Neuro oriented x3, CN's II-XII intact bilaterally and no sensory deficits noted Sensorium / Orientation: alert Motor Exam: strength 5/5 throughout Psych mental status grossly normal Skin no rashes or lesions noted MDM MDM MDM Narrative Medical decision making narrative: EKG was obtained. On my interpretation, it showed a normal sinus rhythm with a rate of 63. MO interval, QRS interval, and QTc intervals were all normal. [place] was normal. There are no acute ST or T wave changes. Portable 1 view chest x- ray was obtained. On my interpretation, lung rucker are clear. There is normal cardiac silhouette. Bony thorax is normal. There is no acute process noted. Radiologist also interpreted the x-ray and agrees. CBC was within normal limits. Comprehensive metabolic profile was obtained and was within normal limits. High-sensitivity troponin was normal. Patient's blood pressure remained stable here in the emergency department. Patient was advised of her findings. Patient was instructed to follow-up with her primary care physician in 3 to 5 days. Patient was instructed to continue to monitor her blood pressure at home. At this point, I do not feel the patient needs antihypertensives emergently. Patient understands and is agreeable with the p shaila. All questions were answered. Lab Data Attestation: I reviewed the patient's lab results. Labs: Laboratory Results - last 24 hr 09/27/21 09/27/21 13:20 13:20 WBC 5.5 RBC 4.42 Hgb 13.3 Hct 40.2 MCV 91.0 MCH 30.1 MCHC 33.1 RDW Std Deviation 40.0 RDW Coeff of Manny 12.0 Plt Count 183 MPV 9.5 Immature Gran % (Auto) 0.200 Neut % (Auto) 66.7 Lymph % (Auto) 20.0 [place] % (Auto) 11.4 H Eos % (Auto) 1.3 Baso % (Auto) 0.4 Absolute Neuts (auto) 3.7 Absolute Lymphs (auto) 1.11 Nucleated RBC % 0 Sodium 139 Potassium 4.2 Chloride 109 H Carbon Dioxide 26.0 Anion Gap 4 L BUN 16 Creatinine 0.75 Estim Creat Clear Calc 51.63 Est GFR (MDRD) Af Amer 99 Est GFR (MDRD) Non-Af 82 BUN/Creatinine Ratio 21.4 H Glucose 99 Calcium 8.8 Total Bilirubin 0.40 AST 13 L ALT 19 Alkaline Phosphatase 81 Troponin I High Sens < 3 L Total Protein 7.0 Albumin 3.4 Globulin 3.6 Albumin/Globulin Ratio 0.9 Radiography Chest X-Ray - ED: 1 View, Read by ED Physician, Read by Radiologist and No Acute Disease Diagnostic Testing: Clinical Impression(s) from Imaging Studies Chest X-Ray 09/27/21 13:25 IMPRESSION: Normal x-ray examination of the chest. Electronically Signed: Chano Roblero MD at 13:47 EDT , EKG Initial EKG: Attestation: I personally reviewed and interpreted this EKG as follows: Interpretation: Sinus Rhythm (63) and No Acute Injury Pattern Discharge Plan Triage Chief Complaint: Hypertension ED Provider: Moose Nuñez Dx/Rx/DC Orders Clinical Impression: Hypertension Instructions: ED Hypertension, Established Prescriptions: No Action omega-3 fatty acids [Fish Oil Concentrate] 1,000 mg capsule 1,000 mg PO ONCE coenzyme Q10 100 mg capsule 100 mg PO DAILY ascorbic acid (vitamin C) 1,000 mg tablet 1 g PO Q6H calcium carbonate [Calcium 500] 500 mg calcium (1,250 mg) tablet 500 mg PO BID zinc acetate 25 mg (zinc) capsule 25 mg PO DAILY Fiber Gummies 2 gram tablet,chewable 2 g PO DAILY mecobalamin (vitamin B12) 5,000 mcg lozenge 5,000 mcg PO DAILY Rx Instructions: allow to dissolve in mouth OR may chew lightly before swallowing hydrocortisone 2.5 % cream 1 applic topical QHS PRN (Reason: rash) Qty: 453.6 2RF (DME) blood pressure monitor Kit See Rx Instructions .Route Qty: 1 0RF Rx Instructions: Check daily and as needed handicap placard See Rx Instructions .ROUTE .COMPLEX Qty: 1 0RF Rx Instructions: Duration 5 years for reduced mobility cholecalciferol (vitamin D3) 50 mcg (2,000 unit) capsule 50 mcg PO DAILY methimazole 5 mg tablet 5 mg PO .Sat-Saturday Qty: 26 6RF Primary Care Provider: Billie Almaraz Referrals: Billie Almaraz MD [Primary Care Provider] - 3-5 Days Disposition Disposition: Home, Self Care
[2021-09-27 14:59] VITALS: BP 172/77
== END 2021-09-27 15:20 | disposition home or self-care (01) ==
PROVIDERS: Emergency Provider Emergency Medicine; PCP Internal Medicine; Visit Provider Emergency Medicine
DX: I10 Essential (primary) hypertension (principal); Z87.891 Personal history of nicotine dependence; E78.5 Hyperlipidemia, unspecified; K58.9 Irritable bowel syndrome, unspecified; G62.9 Polyneuropathy, unspecified; Z86.16 Personal history of COVID-19; M85.80 Other specified disorders of bone density and structure, unspecified site; K21.9 Gastro-esophageal reflux disease without esophagitis; E05.90 Thyrotoxicosis, unspecified without thyrotoxic crisis or storm; Z78.0 Asymptomatic menopausal state; Z79.899 Other long term (current) drug therapy
CPT/HCPCS: 71045; 80053; 84484; 85025; 93005; 99283; A4216

== ENCOUNTER → 2021-11-20 | Outpatient (CLI) | payer MEDICARE, OTHER, SELFPAY ==
--- NOTE | 2021-11-20 09:57 | BI_ITS ---
MAMMOGRAPHY - BILATERAL SCREENING 3-D TOMOSYNTHESIS REASON FOR EXAM: Female, 71 years old. SCREENING PERTINENT HISTORY: No significant family history. TECHNIQUE: 2-D mammograms and 3-D Tomosynthesis of the breast (s) were performed. CAD was performed. COMPARISON: 08/26/2020 FINDINGS: The breast composition is composed of scattered fibroglandular density. Scattered benign calcifications are seen. No dense spiculated masses or suspicious microcalcifications are identified. No architectural distortion is identified. There is no skin thickening or retraction. There has been no significant change since the prior study. BI/SCRN MAMM (CAD)W/SILVIA BILAT IMPRESSION: No mammographic signs of malignancy. Routine yearly mammograms recommended. ASSESSMENT CATEGORY: BIRADS Category 1: Negative. A letter regarding these results will be sent to the patient by the facility within 30 days. FOLLOW UP RECOMMENDATION: Yearly follow up mammogram recommended. (A) Approximately 10% of breast cancers are not detected by mammography. A normal mammogram should not delay biopsy of a clinically suspicious abnormality. Electronically Signed: Chano Roblero MD at 12:59 EDT ,
== END | disposition home or self-care (01) ==
LOC: OPBI 09:51
PROVIDERS: PCP Internal Medicine; Visit Provider Internal Medicine
DX: Z12.31 Encounter for screening mammogram for malignant neoplasm of breast (principal)
CPT/HCPCS: 77063; 77067

== ENCOUNTER → 2022-01-04 | Outpatient (CLI) | payer MEDICARE, OTHER, SELFPAY ==
--- NOTE | 2022-01-04 | VUL_PTH ---
PATIENT: OMI ANDERSON LOC: [facility] U#:[id number] AGE/SX: 71/F ROOM: RE01/04/[address]: Dr. Michelle Page MD : 1950 BED: DIS: 01/04/2022 SPEC #: [id number] RECD: 01/04/22 10:58 STATUS: ANDI KWOK #: [id number] KAREEN: 01/04/22 00:[address]: Michelle Page DEPT: SURGICAL PATHOLOGY RECD BY: Shereen Cardoso ENTERED: 01/04/22 11:28 SP TYPE: VULVA BX OTHR DR: Dr. 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 Extensive hyperkeratosis. Negative for malignancy. See comment. [place]:[facility] 01/05/2022 COMMENT Immunohistochemistry ([id number]) for surrogate HPV marker (p16) supports the above diagnosis. Case has been reviewed in consultation with Dr. Wisdom who concurs with the above diagnosis. IDC:AM MICROSCOPIC DESCRIPTION Slides are reviewed. GROSS DESCRIPTION Received is one container labeled with the patient's name and not further designated. The specimen consists of multiple irregular fragments of light garcia soft tissue that in aggregate measure 0.4 x 0.3 x 0.1 cm. The specimen is totally submitted in one cassette. / [place]:[facility] 01/04/2022 TC:5 CPT: 90506
--- NOTE | 2022-01-04 | IMM_PTH ---
PATIENT: OMI ANDERSON LOC: [facility] U#:[id number] AGE/SX: 71/F ROOM: RE01/04/[address]: Dr. Michelle Page MD : 1950 BED: DIS: 01/04/2022 SPEC #: [id number] RECD: 01/05/22 12:44 STATUS: ANDI REQ #: [id number] KAREEN: 01/04/22 00:[address]: Michelle Page DEPT: IMMUNOHISTOCHEMISTRY RECD BY: Leta Ballard ENTERED: 01/05/22 12:45 SP TYPE: IMMUNO OTHR DR: Dr. Billie Almaraz MD Tissues: Vulva, NOS Procedures: p16 (initial) KI-67 (add) PHYSICIAN & INSTITUTION [place] [id number] SPECIMEN INFORMATION: Tissue Source: Vulva Clinical Info: Vaginal atrophy Specimen Number: [id number] CPT code: 67109, 87232 METHODOLOGY: Deparaffinized sections of prefer/formalin-fixed tissue or PAP/DQ stained slides are incubated with monoclonal/polyclonal antibodies/oligonucleotide probes. Localization is made via biotin free immunoperoxidase method. Appropriate controls are performed and reacted as expected. Results on target cell population are indicated in the following table: RESULTS: ANTIBODY / CLONE RESULT P16 (E6H4) positive, patchy staining Ki-67 (30-9) positive, low These tests were developed and their performance characteristics determined by [facility]. They may not have been cleared or approved by the U.S. Food and Drug Administration. The FDA has determined that such clearance or approval is not necessary. The above immunohistochemical/dualISH markers are ordered and reviewed by the Pathologist. INTERPRETATION: Vulva, biopsy: Consistent with fragment of condyloma with mild squamous dysplasia. [place]:[facility] 01/08/2022
== END | disposition home or self-care (01) ==
LOC: LABSPEC 11:01
PROVIDERS: PCP Internal Medicine; Visit Provider Obstetrics & Gynecology
DX: N95.2 Postmenopausal atrophic vaginitis (principal)
CPT/HCPCS: 88305; 88341; 88342

== ENCOUNTER → 2022-02-15 | Outpatient (CLI) | payer MEDICARE, OTHER, SELFPAY ==
[2022-02-15 13:36] LABS: Free T3 2.3 pg/mL (2.18-3.98); T4 Free Direct 0.81 ng/dL (0.76-1.46); Thyroid Stim Hormone (TSH) 3.94 uIU/mL (0.358-3.74)
== END | disposition home or self-care (01) ==
LOC: BIMLAB 11:48
PROVIDERS: PCP Internal Medicine; Referring Provider Internal Medicine Endocrinology, Diabetes & Metabolism; Visit Provider Internal Medicine Endocrinology, Diabetes & Metabolism
DX: E05.90 Thyrotoxicosis, unspecified without thyrotoxic crisis or storm (principal)
CPT/HCPCS: 36415; 84439; 84443; 84481

== ENCOUNTER 2022-03-06 13:50 | Day surgery (SDC) | payer MEDICARE, OTHER, SELFPAY ==
--- NOTE | 2022-03-02 13:34 | EKG12_ITS ---
Test Reason : PREOP Blood Pressure : / mmHG Vent. Rate : 088 BPM Atrial Rate : 088 BPM P-R Int : 144 ms QRS Dur : 076 ms QT Int : 360 ms P-R-T Axes : 068 069 064 degrees QTc Int : 435 ms Normal sinus rhythm Normal ECG Confirmed by DELISA BECKER, ROBB ([id number]), purchasing expeditor LUISITO LAINEZ ([id number]) on 03/05/2022 11:26:33 AM Referred By: Michelle Page Confirmed By:ROBB HERCULES MD
[2022-03-02 14:13] LABS: Absolute Neutrophil Count 4.4 X10^3/uL (2.0-7.7); Basophil# 0.02 X10^3/uL; Basophil% 0.3 % (0-1); Eosinophil# 0.07 X10^3/uL; Eosinophils% 1.1 % (0-5); Lymphocyte % 22.7 % (19-41); Mean Corp Hgb Conc 33.3 g/dL (32-36); Mean Corpuscular Hgb 30.4 pg (27.0-32.0); Mean Corpuscular Volume 91.1 fL (81-99); Mean Platelet Vol. 9.3 fl (6.2-12.0); Monocyte# 0.57 X10^3/uL; Monocyte% 8.6 % (0-10); NRBC Flagged by Analyzer 0 % (0-5); Neutrophil # 4.43 X10^3/uL (2.7-7.7); Platelet Count 217 K/mm3 (150-450); RBC Distribution Width CV 12.1 % (11.6-14.6); Red Blood Count 4.61 M/mm3 (4.2-5.4); White Blood Count 6.6 K/mm3 (4.4-11.0)
[2022-03-02 15:13] LABS: AST(SGOT) 14 U/L (15-37); Alanine Aminotransfer ALT/SGPT 19 U/L (13-56); Albumin, Serum 3.7 g/dL (3.2-5.0); Alkaline Phosphatase 85 U/L (45-117); Anion Gap 5 (5-15); BUN 12 mg/dL (7-18); BUN/Creat Ratio 12.1 RATIO (10-20); Chloride 107 mmol/L (98-107); Creatinine, Serum 0.99 mg/dL (0.55-1.02); EST Glomerular Filtration Rate 59 mL/min (>60); Est Glom Filt Rate - Afr Amer 71 mL/min (>60); Globulin 3.8 g/dL (2.2-4.2); Glucose 103 mg/dL (74-106); Potassium 3.9 mmol/L (3.5-5.1); Protein, Total 7.5 g/dL (6.4-8.2); Sodium Level 139 mmol/L (136-145)
[2022-03-02 15:36] LABS: Cholesterol 292 mg/dL (200); High Density Lipoprotein 66 mg/dL; Triglycerides 221 mg/dL; Very Low Density Lipoprotein 44 mg/dL (5-40)
--- NOTE | 2022-03-05 14:33 | HP.PCM_ITS ---
History and Physical Intake Vital Signs ? 02/19/2215:09 02/19/2215:10 Height 5 ft 7 in 5 ft 7 in Weight: 191 lb ? BMI 29.9 ? BP 120/84 H ? 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 Is patient in pain?: No Allergies doxycycline Allergy (Verified 02/16/22 15:58) Unknowncodeine Adverse Reaction (Mild, Verified 02/16/22 15:58) severe constipation Medications ascorbic acid (vitamin C) 1,000 mg tablet 1 g PO Q6H 06/03/20 [History Confirmed 02/19/22] coenzyme Q10 100 mg capsule 100 mg PO DAILY 06/03/20 [History Confirmed 02/19/22] omega-3 fatty acids 1,000 mg capsule (Fish Oil Concentrate) 1,000 mg PO ONCE 11/18/20 [History Confirmed 02/19/22] calcium carbonate 500 mg calcium (1,250 mg) tablet (Calcium 500) 500 mg PO BID 02/09/21 [History Confirmed 02/19/22] inulin 2 gram chewable tablet (Fiber Gummies) 2 g PO DAILY 02/09/21 [History Confirmed 02/19/22] zinc acetate 25 mg (zinc) capsule 25 mg PO DAILY 02/09/21 [History Confirmed 02/19/22] mecobalamin (vitamin B12) 5,000 mcg lozenge 5,000 mcg PO DAILY 06/30/21 [History Confirmed 02/19/22] cholecalciferol (vitamin D3) 50 mcg (2,000 unit) capsule 50 mcg PO DAILY 08/15/21 [History Confirmed 02/19/22] blood pressure monitor #1 ea 09/25/21 [Rx Confirmed 02/19/22] handicap placard? See Rx Instructions .Route .COMPLEX #1 unit 09/25/21 [Rx Confirmed 02/19/22] clobetasol 0.05 % topical ointment 1 applic topical .COMPLEX #15 grams 12/05/21 [Rx Confirmed 02/19/22] imiquimod 5 % topical cream packet 1 applic topical .3xw #12 ea 01/08/22 [Rx Confirmed 02/19/22] methimazole 5 mg tablet 5 mg PO .M,,,Sat #20 tabs 02/16/22 [Rx Confirmed 02/19/22] Is last menstrual period known: No Post menopausal: Yes Patient : No : No PFSH Medical History?(Updated 02/19/22 @ 16:[address] Michelle Page MD) Constipation Epigastric pain GERD (gastroesophageal reflux disease) Glaucoma Graves disease Health care maintenance History of COVID-19 Hx of chest pain Hyperlipidemia Hypertension Hyperthyroidism IBS (irritable bowel syndrome) Neuropathy Osteopenia Post-menopause Preventative health care LILLY I (vulvar intraepithelial neoplasia I) Surgical History? History of colonoscopy (~2007) History of nasal septoplasty History of wisdom tooth extraction Hx of hysterectomy Family History? Aunt Breast cancerMother Neuropathy Diabetes Pacemaker Social History? household members:? none current occupational status:? retired Smoking Status:? Former smoker alcohol intake:? current Alcohol type: wine substance use type:? does not use diet:? other what type of physical activity do you participate in:? walking and weight training frequency:? 3-4 times per week seatbelt use:? always do you feel safe at home:? Yes additional social history:? HPI 6wk f/u Details: OMI ANDERSON is a 71 year old who presents for preop visit for lilly managemnet.? she tried the cream but doesn't tolerate it and wants to proceed with surgical management. Female Reproductive History Menopausal Symptoms: No night sweats History ? ? ? 0 ? Elective abortions ? Hx ParaA ? Spontaneous abortions ? Hx # Term Pregnancies ? Ectopic pregnancies ? Hx # Pregnancies ? Multiple births ? # of living children ? ROS Const Constitutional: Denies fatigue, fever(s), headache(s), increased appetite, poor appetite, night sweats, weight gain or weight loss ENT ENT: Reports system reviewed and no additional complaints, except as documented Cardio Card: Denies chest pain Resp Resp: Denies cough or dyspnea GI GI: Reports as per HPI; Denies abdominal pain, constipation, nausea or vomiting : Denies nipple discharge, urinary frequency, urinary incontinence, urinary hesitancy, urinary urgency, vaginal discharge, vaginal dryness, vaginal odor or vaginal pruritus Musc Musc: Denies arthralgias, back pain or muscle weakness Skin Skin/Breast: Denies alopecia, change in hair, dry skin, breast mass, breast pain, breast skin changes or nipple discharge Neuro Neuro: Reports system reviewed and no additional complaints, except as documented Psych Psych: Reports system reviewed and no additional complaints, except as documented Endo Endo: Denies cold intolerance, excessive sweating, heat intolerance or polydipsia Julio/Lymph Hematologic/Lymphatic: Denies easy bleeding, Denies easy bruising and Denies lymphadenopathy Exam Const General: cooperative and no acute distress Nutritional Appearance: well nourished Orientation: oriented x3 HENMT Head: normal to inspection and normocephalic Ears: hearing grossly normal bilaterally and external ears normal Nose: external nose normal and nares normal Face and sinus: normal facial exam Neck Neck: normal visual inspection and no lymphadenopathy Thyroid: thyroid normal Chest Chest palpation & inspection: normal inspection of the chest Resp Effort & Inspection: normal respiratory effort Auscultation: clear to auscultation bilaterally Cardio Rate: regular rate Rhythm: regular rhythm Heart Sounds: S1 normal and S2 normal GI Inspection: normal to inspection and non-distended Palpation: soft and no hepatosplenomegaly General: bladder normal to palpation External Female Exam: normal appearance of the urethra and other (atrophic.persistent silver whitening,thickening with irreg borders clitoris) Urethra: normal appearance of the urethra, normal palpation and no discharge Speculum Exam - Vagina: normal appearance of the vagina and normal vaginal discharge Speculum Exam - Cervix: normal appearance of the cervix and nontender Bimanual Exam- Vagina & Uterus: normal bimanual exam, uterine size normal, bladder normal to palpation, uterine shape normal, No tender, uterine mobility normal, consistency normal, normal palpation and non-tender Bimanual Exam- Adnexa, other: normal adnexae, adnexae mobile, no masses and normal Pelvic Support: normal Musc Other: gross motor intact no deficits, full bilateral strength Skin General: no rashes or lesions noted Neuro General: patient alert, patient awake, moves all extremities and no focal motor deficits Motor: muscle tone normal throughout Extrem General: normal to inspection and no pedal edema Psych Appearance: grossly normal Mental Status: mental status grossly normal Affect: normal affect Speech and Movement: speech and movement normal Coding Level of Care Code No Charge Diagnoses LILLY I (vulvar intraepithelial neoplasia I)? N90.0 Assessment and Plan Assessment and Plan (1) LILLY I (vulvar intraepithelial neoplasia I): ?Status:?Acute ?Comment: proceed with CO2 laser ablation of lesions possible vulvectomy Plan After discussing the patient's diagnosis and treatment plan options, patient wishes to proceed with surgical management.? I have discussed with the patient the risks, benefits, and alternatives of the procedure which include but are not limited to risks of anesthesia, bleeding, infection, possible damage to bowel, bladder, or surrounding vasculature which could lead to additional surgery to evaluate any complications.? Patient agrees to procedure and wishes to proceed.? ACOG/uptodate references given for additional information regarding procedure.? UPDATE- I have seen the patient and performed any clinically relevant updates to the history and physical exam. Michelle Page MD
[2022-03-06] MEDS: Lactated Ringers 1,000 ML 125 ML IV (14:25)
[2022-03-06 14:26] VITALS: BP 154/73; PULSE 74; RESP 18; TEMP 36.6; O2SAT 96; BMI 30.4
[2022-03-06] MEDS: Cefotetan 2 GM in 0.9% NS 100 ML IV (15:23)
--- NOTE | 2022-03-06 15:23 | PCM.OPRPT ---
Problems Associated Problem List Diagnoses (1) MARIELA I (vulvar intraepithelial neoplasia I): Report of Operation Date of Procedure: 03/06/22 Pre-Operative Diagnosis: MARIELA Post-Operative Diagnosis: same Surgery/Procedure Performed:: co2 laser ablation of MARIELA Description of Surgical Findings:: periclitoral MARIELA lesion Surgeon: Michelle Page Special Medications: silvadene Estimated Blood Loss (mL): none Description of Procedure: Patient was placed under general anesthesia was prepped and draped in normal sterile fashion and moist towels draped around the operative area. Laser was tested for penetration and at 5 W continuous was used to treat the area of the clitoral verma that had been biopsied previously and diagnosed as MARIELA and a [address] the way around with a depth of 1 mm due to being in a non hairbearing area. No other lesions were visualized. Multi Select Codes Urinary/Genital Urinary/Genital CPT Codes: 54236 Destroy vulva lesions sim
--- NOTE | 2022-03-06 15:25 | DCINST_ITS ---
Discharge Instructions Procedure Other (co2 laser ablation of vulvar lesions) Diet Discharge Diet: No restrictions Activity Discharge Activity: Return to Normal Activity, May Shower, May Take a Tub Bath (after 3-4 week) and - (may use sitz baths as needed) May shower in (days): 0 May resume sexual activity in: 4-6 weeks Ice area for (Minutes): 15 Weight Bearing Status: Weight bearing as tolerated Lifting Restrictions: none Additional Activity Instructions:: apply silvadene cream or aquaphor, a and d ointment eveyr time you use the restroom or as needed Dressing / Incision Call your doctor if you observe: Fever of 101 or Higher, Using more than 1 pad p er hour, Shortness of breath and Uncontrolled pain Cleanse incision/area with: Soap & Water and Keep Dressing Clean & Dry Follow Up Care Please Follow Up With: Michelle Page MD When: Call [phone] to schedule appointment. Test Results: Test results from this visit will be discussed in further detail at your follow- up appointment, if applicable. Discharge Plan Admission Attending Provider: Michelle Page Primary Care Provider: Billie Almaraz Discharge Orders/Prescriptions Prescriptions: New silver sulfadiazine [silver sulfadiazine] 1 % cream 1 applic topical PRN PRN (Reason: Wound Care) Qty: 1 2RF oxycodone-acetaminophen [Percocet] 5-325 mg tablet 1 tab PO Q6H PRN (Reason: pain) 7 Days Qty: 28 0RF naproxen [naproxen] 500 mg tablet 500 mg PO BID PRN PRN (Reason: Pain) Qty: 30 1RF No Action omega-3 fatty acids [Fish Oil Concentrate] 1,000 mg capsule 1,000 mg PO DAILY coenzyme Q10 100 mg capsule 100 mg PO DAILY ascorbic acid (vitamin C) 1,000 mg tablet 1 g PO DAILY calcium carbonate [Calcium 500] 500 mg calcium (1,250 mg) tablet 500 mg PO DAILY zinc acetate 25 mg (zinc) capsule 25 mg PO DAILY Fiber Gummies 2 gram tablet,chewable 2 g PO DAILY mecobalamin (vitamin B12) 5,000 mcg lozenge 5,000 mcg PO DAILY Rx Instructions: allow to dissolve in mouth OR may chew lightly before swallowing (DME) blood pressure monitor Kit See Rx Instructions .Route Qty: 1 0RF Rx Instructions: Check daily and as needed methimazole 5 mg tablet 5 mg PO .M,,,Sat Qty: 20 6RF cholecalciferol (vitamin D3) 50 mcg (2,000 unit) capsule 50 mcg PO DAILY Referrals / Follow Up: Billie Almaraz MD [Primary Care Provider] - Disposition Disposition (needs filled in before D/C Order can be placed): Home, Self Care
[2022-03-06 16:06] VITALS: BP 154/73; BP 172/147; PULSE 72; RESP 16; TEMP 36.8; O2SAT 100
[2022-03-06 16:15] VITALS: BP 154/73; BP 172/96; PULSE 68; RESP 16; O2SAT 98
[2022-03-06 16:30] VITALS: BP 154/73; BP 163/87; PULSE 69; RESP 18; TEMP 36.7; O2SAT 100
== END 2022-03-06 17:25 | disposition home or self-care (01) ==
LOC: SDC 13:52 → AC 13:52
PROVIDERS: Nurse Practitioner Family; PCP Internal Medicine; Referring Provider Obstetrics & Gynecology; Visit Provider Obstetrics & Gynecology
PROC: (CPT 56501; principal; 2022-03-06 14:55)
DX: N90.0 Mild vulvar dysplasia (principal); Z87.891 Personal history of nicotine dependence; N90.89 Other specified noninflammatory disorders of vulva and perineum; K59.00 Constipation, unspecified; Z86.16 Personal history of COVID-19; I10 Essential (primary) hypertension; E78.5 Hyperlipidemia, unspecified
CPT/HCPCS: 56501; 00940; 36415; 80053; 80061; 85025; 86850; 86900; 86901; 93005; J7120; J2405

== ENCOUNTER → 2022-06-19 | Outpatient (CLI) | payer MEDICARE, OTHER, SELFPAY ==
[2022-06-19 12:18] LABS: ALB/GLOB Ratio 0.9 RATIO (0.9-2.4); AST(SGOT) 20 U/L (15-37); Alanine Aminotransfer ALT/SGPT 31 U/L (13-56); Albumin, Serum 3.7 g/dL (3.2-5.0); Alkaline Phosphatase 76 U/L (45-117); Anion Gap 8 (5-15); BUN 15 mg/dL (7-18); BUN/Creat Ratio 19.6 RATIO (10-20); Chloride 107 mmol/L (98-107); Cholesterol 273 mg/dL (200); Creatinine, Serum 0.77 mg/dL (0.55-1.02); EST Glomerular Filtration Rate 79 mL/min (>60); Est Glom Filt Rate - Afr Amer 96 mL/min (>60); Globulin 4.1 g/dL (2.2-4.2); Glucose 99 mg/dL (74-106); High Density Lipoprotein 59 mg/dL; Potassium 4.1 mmol/L (3.5-5.1); Protein, Total 7.8 g/dL (6.4-8.2); Sodium Level 141 mmol/L (136-145); Triglycerides 111 mg/dL; Very Low Density Lipoprotein 22 mg/dL (5-40)
== END | disposition home or self-care (01) ==
LOC: BIMLAB 08:12
PROVIDERS: PCP Internal Medicine; Referring Provider Internal Medicine; Visit Provider Internal Medicine
DX: I10 Essential (primary) hypertension (principal); E78.5 Hyperlipidemia, unspecified
CPT/HCPCS: 36415; 80053; 80061

== ENCOUNTER 2022-08-06 10:59 | Day surgery (SDC) | payer MEDICARE, OTHER, SELFPAY ==
[2022-08-06] VITALS (8 sets, daily range): BP systolic 112–149; BP diastolic 69–95; PULSE 68–95; RESP 16–18; TEMP 35.4–36.2; O2SAT 98–100; BMI 29.4
--- NOTE | 2022-08-06 11:20 | HP.PCM_ITS ---
History and Physical Date of Admission: 08/06/22 Date of Service:? 07/11/22 MR#: [id number] Acct: [id number] Name:OMI RAMIRES Rep #: [id number] : 1950 ? ? Provider: Dr. Deanne Sharpe MD Age/Sex:? 72/F ? ? Location: [facility] Status: Signed Intake Vital Signs ? 07/11/2308:12 Height 5 ft 7 in Weight: 190 lb BMI 29.7 BP 145/90 H Blood Pressure Location Rt brachial Position Sitting Respiration 16 Intake Visit Reasons:?CHANGE IN BOWEL HABITS Chief Complaint: 3 M FU Systems Programmer Required: No Is patient in pain?: Yes (rectal) Allergies doxycycline Allergy (Verified 07/11/22 09:12) Unknowncodeine Adverse Reaction (Mild, Verified 07/11/22 09:12) severe constipation Medications ascorbic acid (vitamin C) 1,000 mg tablet 1 g PO DAILY 06/03/20 [History Confirmed 07/11/22] omega-3 fatty acids 1,000 mg capsule (Fish Oil Concentrate) 1,000 mg PO DAILY 11/18/20 [History Confirmed 07/11/22] calcium carbonate 500 mg calcium (1,250 mg) tablet (Calcium 500) 500 mg PO DAILY 02/09/21 [History Confirmed 07/11/22] inulin 2 gram chewable tablet (Fiber Gummies) 2 g PO DAILY 02/09/21 [History Confirmed 07/11/22] mecobalamin (vitamin B12) 5,000 mcg lozenge 5,000 mcg PO DAILY 06/30/21 [History Confirmed 07/11/22] cholecalciferol (vitamin D3) 50 mcg (2,000 unit) capsule 50 mcg PO DAILY 08/15/21 [History Confirmed 07/11/22] blood pressure monitor #1 ea 09/25/21 [Rx Confirmed 07/11/22] methimazole 5 mg tablet 5 mg PO .M,,,Sat #20 tabs 04/13/22 [Rx Confirmed 07/11/22] rosuvastatin 10 mg tablet 10 mg PO DAILY #30 tabs 06/20/22 [Rx Confirmed 07/11/22] zinc gluconate 50 mg tablet 50 mg PO DAILY 06/20/22 [History Confirmed 07/11/22] PFSH Medical History? Alcohol use Constipation Easy bruising Epigastric pain Former smoker GERD (gastroesophageal reflux disease) Glaucoma Graves disease Health care maintenance History of COVID-19 History of stress test Hx of chest pain Hyperlipidemia Hypertension Hyperthyroidism IBS (irritable bowel syndrome) Injury of head and neck Leg cramps Neuropathy Osteopenia Post-menopause Preventative health care MARIELA I (vulvar intraepithelial neoplasia I) Wears glasses Surgical History? H/O vulvectomy History of colonoscopy (~2007) History of nasal septoplasty History of wisdom tooth extraction Hx of hysterectomy Family History? Aunt Breast cancerMother Neuropathy Diabetes Pacemaker Social History? household members:? none current occupational status:? retired Smoking Status:? Former smoker alcohol intake:? current Alcohol type: wine substance use type:? does not use diet:? other what type of physical activity do you participate in:? walking and weight training frequency:? 3-4 times per week seatbelt use:? always do you feel safe at home:? Yes additional social history:? HPI HPI HPI: 72-year-old female presents due to change of bowel habits and occasional rectal pain.? Patient last colonoscopy was in January 2018 did have 2 polyps that time recommend follow-up colonoscopy in 5 years for screening.? Patient states she did have a procedure with Dr. William Lundy in March and since then she does not feel like she is emptying completely as far as her bowel movements go denies hard stools but they are on smaller amounts.? Patient still drinking plenty of water and getting a fiber in her diet but she needs to take a little laxative about once a week.? Patient occasionally has some abdominal pain associated with this does resolve with the laxative.? Patient does have dull pain in her rectum about every other day which are brief in nature occasionally has some higher intensity brief pain may be 3 times in a month not related to anything specific. ROS General General: No weight change, appetite, fatigue, colon cancer or breast cancer HEENT HEENT: No difficulty swallowing, eye injury, eye surgery, swollen glands or hoarseness Endo Endocrine: Yes thyroid disease; No diabetes mellitus, thyroid cancer, Hair loss, heat intolerance or cold intolerance Additional Details: Graves Skin Skin: No rash or changing moles Musc Musculoskeletal: No back problems, arthritis, rheumatoid arthritis, gout or joint pain Cardio Cardiovascular: No murmur, pacemaker, heart disease, atrial fibrillation, high blood pressure, heart attack, heart stent, palpitations, shortness of breat with exertion or chest pain Psych Psychiatric: No depression, anxiety or hearing voices Resp Respiratory: No shortness of breath, No sleep apnea, No cough, No COPD, No asthma, No emphysema and No wheezing Gastro Gastrointestinal: No abdominal pain, Yes nausea or vomiting, Yes diarrhea, No constipation, No blood in stool, No acid reflux, Yes hemorrhoids, No ulcers, No gallbladder problem and No black,tarry stools Julio Hematologic: No blood thinners, No blood disorders, No bleeding, No anemia and No blood clots Neuro Neurologic: No abnormal speech and No confusion Exam Const General: cooperative, healthy appearing and no acute distress [facility] Head: normal to inspection Resp Effort & Inspection: normal respiratory effort Cardio Rate: regular rate GI Inspection: non-distended Palpation: soft, no guarding and nontender Skin General: no rashes or lesions noted Neuro General: patient oriented x3 Extrem General: no clubbing, cyanosis or edema Psych Affect: normal affect Assessment and Plan Assessment and Plan (1) Change in bowel habits: ?Status:?Acute Plan We will plan for colonoscopy evaluation. I have discussed the above with the patient. I have offered the patient colonoscopy for evaluation. I have explained the risks/benefits of the procedure and described the procedure.? I have discussed the risks with the patient, including but not limited to:? infection, bleeding, perforation of the GI tract requiring emergency surgery, inability to complete the procedure, injury to any internal organs, complications of anesthesia, etc. - the patient understands and agrees to proceed. I have answered all the patient's questions to the patient's satisfaction and the patient has no further questions. The patient has been given instructions for the colon cleansing preparation.? 1 day of clears, MiraLAX Dulcolax split prep. Deanne Sharpe M.D. Pager: [phone] [facility] [address] [place] [address], [address] [place] [address] Office: [phone] Coding Level of Care Code Off vis,est,level 3 Diagnoses Change in bowel habits? R19.4 07/11/22 1031 <Electronically signed by Deanne Sharpe MD> Date Deanne Sharpe MD
[2022-08-06] MEDS: Lactated Ringers 1,000 ML 15 ML IV (11:34)
--- NOTE | 2022-08-06 12:23 | OP.COLON_ITS ---
Patient Name: Donna Woo Procedure Date: 08/06/2022 11:27 AM Date of : 1950 Age: 72 Procedure: Colonoscopy Indications: Change in bowel habits Providers: Deanne Sharpe MD Medicines: Monitored Anesthesia Care Patient Profile: This is a 72 year old female. Last Colonoscopy: January 2018. Complications: No immediate complications. Procedure: Pre-Anesthesia Assessment: - Prior to the procedure, a History and Physical was performed, and patient medications and allergies were reviewed. The patient's tolerance of previous anesthesia was also reviewed. The risks and benefits of the procedure and the sedation options and risks were discussed with the patient. All questions were answered, and informed consent was obtained. Prior Anticoagulants: The patient has taken no previous anticoagulant or antiplatelet agents. ASA Grade Assessment: Per anesthesia. After reviewing the risks and benefits, the patient was deemed in satisfactory condition to undergo the procedure. After I obtained informed consent, the scope was passed under direct vision. Throughout the procedure, the patient's blood pressure, pulse, and oxygen saturations were monitored continuously. The colonoscope was introduced through the anus and advanced to the cecum, identified by the appendiceal orifice, ileocecal valve and palpation. The colonoscopy was performed without difficulty. The patient tolerated the procedure well. The quality of the bowel preparation was good. Scope In: 11:44:28 AM Scope Withdrawal Time 0 hours 9 minutes 22 seconds Scope Out: 12:06:12 PM Total Procedure Duration Time 0 hours 21 minutes 44 seconds Findings: Hemorrhoids were found on perianal exam. Non-bleeding internal hemorrhoids were found. The hemorrhoids were Grade I (internal hemorrhoids that do not prolapse). The entire examined colon appeared normal. Impression: - Hemorrhoids found on perianal exam. - Non-bleeding internal hemorrhoids. - The entire examined colon is normal. - No specimens collected. Recommendation: - Discharge patient to home. - Resume previous diet. - Continue present medications. - Repeat colonoscopy 10 years--depending on overall health at that time for screening purposes. Procedure Code(s): --- Professional --- 35804, Colonoscopy, flexible; diagnostic, including collection of specimen(s) by brushing or washing, when performed (separate procedure) Diagnosis Code(s): --- Professional --- K64.0, First degree hemorrhoids R19.4, Change in bowel habit CPT copyright 2017 [employer]. All rights reserved. The codes documented in this report are preliminary and upon gear technician review may be revised to meet current compliance requirements. MD Deanne Lubin MD 08/06/2022 12:23:33 PM This report has been signed electronically. Number of Addenda: 0 Note Initiated On: 08/06/2022 11:27 AM
--- NOTE | 2022-08-06 12:24 | OP.CCLET_ITS ---
08/06/2022 Billie Alamraz MD [address] [place] [address] [place] [address] Re : Colonoscopy procedure for Donna Woo Dear Dr. Almaraz This procedure was performed on Saturday, August 06, 2022. My impressions and recommendations are as follows: Impressions : - Hemorrhoids found on perianal exam. - Non-bleeding internal hemorrhoids. - The entire examined colon is normal. - No specimens collected. Recommendations : - Discharge patient to home. - Resume previous diet. - Continue present medications. - Repeat colonoscopy 10 years--depending on overall health at that time for screening purposes. My findings are described in the full procedure note, which is enclosed. If I can be of further assistance, please feel free to contact me at Doctor phone number(s): , Work: . Sincerely, MD Deanne Lubin MD 08/06/2022 12:23:33 PM This report has been signed electronically.
== END 2022-08-06 13:00 | disposition home or self-care (01) ==
LOC: EN 11:00 → AC 11:01
PROVIDERS: PCP Internal Medicine; Referring Provider Internal Medicine; Visit Provider Surgery
PROC: 0DJD8ZZ Inspection of Lower Intestinal Tract, Via Natural or Artificial Opening Endoscopic (ICD-10-PCS; CPT 45378; principal; 2022-08-06 12:55)
DX: R19.4 Change in bowel habit (principal); K64.0 First degree hemorrhoids; Z87.891 Personal history of nicotine dependence; Z86.16 Personal history of COVID-19; K62.89 Other specified diseases of anus and rectum
CPT/HCPCS: 45378; J7120; J2405

== ENCOUNTER → 2022-08-09 | Outpatient (CLI) | payer MEDICARE, OTHER, SELFPAY ==
[2022-08-09 12:46] LABS: Free T3 3.9 pg/mL (2.18-3.98); T4 Free Direct 1.47 ng/dL (0.76-1.46); Thyroid Stim Hormone (TSH) 0.02 uIU/mL (0.358-3.74)
== END | disposition home or self-care (01) ==
LOC: BIMLAB 08:58
PROVIDERS: PCP Internal Medicine; Referring Provider Internal Medicine Endocrinology, Diabetes & Metabolism; Visit Provider Internal Medicine Endocrinology, Diabetes & Metabolism
DX: E05.00 Thyrotoxicosis with diffuse goiter without thyrotoxic crisis or storm (principal); K58.2 Mixed irritable bowel syndrome
CPT/HCPCS: 36415; 84439; 84443; 84481

== ENCOUNTER → 2022-09-18 | Outpatient (CLI) | payer MEDICARE, OTHER, SELFPAY ==
[2022-09-18 12:26] LABS: ALB/GLOB Ratio 0.9 RATIO (0.9-2.4); AST(SGOT) 16 U/L (15-37); Alanine Aminotransfer ALT/SGPT 20 U/L (13-56); Albumin, Serum 3.4 g/dL (3.2-5.0); Alkaline Phosphatase 84 U/L (45-117); Anion Gap 4 (5-15); BUN 13 mg/dL (7-18); BUN/Creat Ratio 19.5 RATIO (10-20); Calcium,Total 8.7 mg/dL (8.5-10.1); Chloride 110 mmol/L (98-107); Cholesterol 165 mg/dL (200); Creatinine, Serum 0.67 mg/dL (0.55-1.02); EST Glomerular Filtration Rate 93 mL/min (>60); Est Glom Filt Rate - Afr Amer 112 mL/min (>60); Globulin 3.8 g/dL (2.2-4.2); Glucose 106 mg/dL (74-106); High Density Lipoprotein 68 mg/dL; Potassium 4.1 mmol/L (3.5-5.1); Protein, Total 7.2 g/dL (6.4-8.2); Sodium Level 140 mmol/L (136-145); Triglycerides 115 mg/dL; Very Low Density Lipoprotein 23 mg/dL (5-40)
== END | disposition home or self-care (01) ==
LOC: BIMLAB 08:15
PROVIDERS: PCP Internal Medicine; Referring Provider Internal Medicine; Visit Provider Internal Medicine
DX: E78.5 Hyperlipidemia, unspecified (principal)
CPT/HCPCS: 36415; 80053; 80061

== ENCOUNTER → 2022-12-12 | Outpatient (CLI) | payer MEDICARE, OTHER, SELFPAY ==
--- NOTE | 2022-12-12 12:45 | BI_ITS ---
MAMMOGRAPHY - BILATERAL SCREENING REASON FOR EXAM: Female, 72 years old. Routine annual screening examination. PERTINENT HISTORY: Aunt with breast cancer. TECHNIQUE: Digital bilateral breast silvia (3D mammographic acquisition) in the CC and MLO projections. 2-D mediolateral oblique (MLO) and craniocaudad (CC) views of both breasts were obtained. CAD: Full Field Digital Mammography with Computer Added Detection was performed. COMPARISON: Comparison is made with prior study dated November 20, 2021 and August 26, 2020. FINDINGS: Breast Composition: There are scattered areas of fibroglandular density. There are no dominant masses or suspicious calcifications. Stable benign-appearing bilateral axillary lymph nodes. No other significant abnormalities are identified. There has been no significant change since the prior study. BI/SCRN MAMM (CAD)W/SILVIA BILAT IMPRESSION: Stable bilateral screening mammogram. Yearly follow-up mammogram recommended. (A) ASSESSMENT CATEGORY: BIRADS Category 2: Benign. A letter regarding these results will be sent to the patient by the facility within 30 days. Approximately 10% of breast cancers are not detected by mammography. A normal mammogram should not delay biopsy of a clinically suspicious abnormality. [id number] Electronically Signed: Carl Phillip MD at 13:54 EDT ,
== END | disposition home or self-care (01) ==
LOC: OPBI 12:43
PROVIDERS: PCP Internal Medicine; Referring Provider Internal Medicine; Visit Provider Internal Medicine
DX: Z12.31 Encounter for screening mammogram for malignant neoplasm of breast (principal); Z80.3 Family history of malignant neoplasm of breast
CPT/HCPCS: 77063; 77067

== ENCOUNTER → 2023-02-13 | Outpatient (CLI) | payer MEDICARE, OTHER, SELFPAY ==
[2023-02-13 12:46] LABS: Free T3 3.3 pg/mL (2.18-3.98); T4 Free Direct 1.16 ng/dL (0.76-1.46); Thyroid Stim Hormone (TSH) 0.02 uIU/mL (0.358-3.74)
== END | disposition home or self-care (01) ==
LOC: BIMLAB 08:28
PROVIDERS: PCP Internal Medicine; Referring Provider Internal Medicine Endocrinology, Diabetes & Metabolism; Visit Provider Internal Medicine Endocrinology, Diabetes & Metabolism
DX: E05.00 Thyrotoxicosis with diffuse goiter without thyrotoxic crisis or storm (principal); K58.2 Mixed irritable bowel syndrome
CPT/HCPCS: 36415; 84439; 84443; 84481

== ENCOUNTER → 2023-03-13 | Outpatient (CLI) | payer MEDICARE, OTHER, SELFPAY ==
--- NOTE | 2023-03-13 14:04 | VDLE_ITS ---
Reason For Study: RLE Swelling RIGHT LEFT GSV is normal. CFV is compressible, spontaneous, phasic, CFV is compressible, spontaneous, phasic, competent, and demonstrates normal competent and demonstrates normal augmentation. augmentation. FV is compressible, spontaneous, phasic, competent and demonstrates normal augmentation. POP V is compressible, spontaneous, phasic, competent and demonstrates normal augmentation. T/P Trunk is compressible. PTV is compressible. RT PerV is compressible. Procedure This is a venous duplex using B-mode, color flow and spectral Doppler. Exam performed in department. The exam was diagnostic. A preliminary report was called and/or faxed to Dr. Chapman's office. VL/Venous Duplex US, Unilateral Interpretation Summary Deep veins of the right lower extremity are patent and compressible segmentally . There is no evidence of right lower extremity deep vein thrombosis. The right great sapheno us vein appears patent and compressible segmentally. Ordering Physician: Joi Chapman Referring Physician: Billie Almaraz Performed By: Devan Perla RVT
== END | disposition home or self-care (01) ==
LOC: CVS 14:03
PROVIDERS: PCP Internal Medicine; Referring Provider Podiatrist; Visit Provider Podiatrist
DX: R60.9 Edema, unspecified (principal); M79.604 Pain in right leg
CPT/HCPCS: 93971

== ENCOUNTER → 2023-05-27 | Outpatient (CLI) | payer MEDICARE, OTHER, SELFPAY ==
--- OUTSIDE RECORDS SUMMARY | 2023-05-27 09:29 | XMS RPT_ITS | CCD ---
Author Name Unknown Address [address] [place] [address] Organization [facility] Care Team Providers Care Sample Patternmaker Name Role Phone Joi Carballo PA-C Unavailable Allergies Allergy Classification Reported Allergen(s) Allergy Type Date of Onset Reaction(s) Facility (1 source) Amoxicillin Drug Allergy 04-14-2018 [facility] Work Phone: (1 source) Codeine Drug Allergy 04-14-2018 [facility] Work Phone: Medications Completed/Discontinued Medications Medication Drug Class(es) Dates Sig (Normalized) Sig (Original) HYPERLIPDEMIA MEDICATION (1 source) Start: 04-14-2018 HYPERLIPDEMIA MEDICATION HYPERLIPDEMIA MEDICATION Joi Carballo PA-C lidocaine 40 mg/ml topical cream (1 source) Antiarrhythmic, Amide Local Anesthetic Start: 04-14-2018 LIDOCAINE 4 % CREA Apply to affected area up to tid prn LIDOCAINE [id number] Joi Carballo PA-C Problems Active Problems Problem Classification Problem Date Documented Date Episodic/Chronic Spondylosis; intervertebral disc disorders; other back problems (1 source) Degeneration of cervical intervertebral disc; Translations: [Other cervical disc degeneration, unspecified cervical region] Onset: 04-14-2018 04-18-2018 Chronic Spondylosis; intervertebral disc disorders; other back problems (1 source) Neck pain; Translations: [Cervicalgia] Onset: 04-14-2018 04-14-2018 Episodic Past or Other Problems Problem Classification Problem Date Documented Da te Episodic/Chronic Unclassified (1 source) Problem Results Test Name Value Interpretation Reference Range Facil ity Vital Signs Date Time Vital Sign Value Performing Clinician Facility NEGATED: Highlighted [id number] 14:03-0500 BMI (Body Mass Index) 29.87 kg/m2 Akin Beavers LUZ [facility] Work Phone: NEGATED: Highlighted [id number] 14:03-0500 BP Diastolic 84 mm[Hg] Akin Beavers LUZ [facility] Work Phone: NEGATED: Highlighted [id number] 14:03-0500 BP Systolic 144 mm[Hg] Akin Beavers CALL CENTER TRAINER [facility] Work Phone: NEGATED: Highlighted [id number] 14:03-0500 Height 170.18 cm Akin Beavers CALL CENTER TRAINER [facility] Work Phone: NEGATED: Highlighted [id number] 14:03-0500 Height 170 cm Akin Beavers CALL CENTER TRAINER [facility] Work Phone: NEGATED: Highlighted [id number] 14:03-0500 Pulse (Heart Rate) 80 /min Akin Beavers LPN [facility] Work Phone: NEGATED: Highlighted [id number] 14:03-0500 Weight 86.18 kg Akin Beavers LPN [facility] Work Phone: NEGATED: Highlighted [id number] 14:03-0500 Weight 86 kg Akin Beavers CALL CENTER TRAINER [facility] Work Phone: Encounters Encounter Date Encounter Type Care Provider Facility Start: 04-14-2018 End: 04-18-2018 Patient encounter procedure Joi D'Etelvina PA-C Work Phone: [facility] Work Phone: Start: 04-14-2018 End: 04-14-2018 Pt evaluation Joi D'Etelvina PA-C Work Phone: [facility] Work Phone: Procedures Date Procedure Procedure Detail Performing Clinician Start: 04-14-2018 End: 04-18-2018 Blood pressure within normal parameters - no follow-up required Joi D'Etelvina PA-C Work Phone: Start: 04-14-2018 End: 04-18-2018 BMI documented as above normal parameters - follow-up documented Joi D'Etelvina PA-C Work Phone: Start: 04-14-2018 End: 04-18-2018 Documentation of current medications Joi D'Etelvina PA-C Work Phone: Start: 04-14-2018 End: 04-18-2018 Pain assessment documented as positive - follow-up documented Joi D'Etelvina PA-C Work Phone: Start: 04-14-2018 End: 04-18-2018 Tobacco non-user Joi D'Etelvina PA-C Work Phone: Plan of Treatment Date Care Activity Detail Author [facility] Work Phone: Immunizations Immunization Date Immunization Notes Care Provider Lindy grijalva No information available. Akin Beavers LPN [facility] Work Phone: Social History Date Type Detail Facility NEGATED: Highlighted rowStart: 04-14-2018 End: 04-14-2018 Alcohol use ETOH USE Yes [facility] Work Phone: NEGATED: Highlighted rowStart: 04-14-2018 End: 04-14-2018 Details of drug misuse behavior DRUG USE No [facility] Work Phone: NEGATED: Highlighted rowStart: 04-14-2018 End: 04-14-2018 Assertion Never smoker [facility] Work Phone: Chief Complaint Chief Complaint Description Start Date lower neck pain Preliminary chief co mplaint data, not yet signed by the author as of Instructions Instruction Description Start Date Patient advised to follow-up with Primary Care Physician for BMI management. Advance Directives There may be information available, but it has not been provided by the sender. Assessments There may be information available, but it has not been provided by the sender. Review of System There may be information available, but it has not been provided by the sender. Family History There may be information available, but it has not been provided by the sender. History of Present Illness There may be information available, but it has not been provided by the sender. Additional Source Comments Reason for Visit (unrecogniz ed section and content) FOR RECORDS PERTAINING TO PATIENTS WHO ARE OR HAVE BEEN ENROLLED IN A CHEMICAL DEPENDENCY/SUBSTANCEABUSE PROGRAM, SOME INFORMATION MAY BE OMITTED. This clinical summary was aggregated from multiple sources. Caution should be exercised in using it in the provision of clinical care. This summary normalizes information from multiple sources, and as a consequence, information in this document may materially change the coding, format and clinical context of patient data. In addition, data may be omitted in some cases. CLINICAL DECISIONS SHOULD BE BASED ON THE PRIMARY CLINICAL RECORDS. [facility] [employer] [facility]. provides no warranty or guarantee of the accuracy or completeness of information in this document.
[2023-05-27 12:37] LABS: Absolute Lymphocyte Count 1.06 X10^3/uL (0.83-4.51); Absolute Neutrophil Count 2.7 X10^3/uL (2.0-7.7); Basophil# 0.02 X10^3/uL; Basophil% 0.5 % (0-1); Eosinophil# 0.06 X10^3/uL; Eosinophils% 1.4 % (0-5); Hematocrit 44.7 % (37-47); Hemoglobin 14.8 g/dL (12.0-15.0); Lymphocyte # 1.06 X10^3/ul (0.83-4.51); Lymphocyte % 24.1 % (19-41); Mean Corp Hgb Conc 33.1 g/dL (32-36); Mean Corpuscular Hgb 30.1 pg (27.0-32.0); Mean Corpuscular Volume 90.9 fL (81-99); Mean Platelet Vol. 9.7 fl (6.2-12.0); Monocyte# 0.55 X10^3/uL; Monocyte% 12.5 % (0-10); NRBC Flagged by Analyzer 0 % (0-5); Neutrophil # 2.69 X10^3/uL (2.7-7.7); Neutrophil % 61.3 % (47-70); Platelet Count 197 K/mm3 (150-450); RBC Distribution Width CV 12.1 % (11.6-14.6); Red Blood Count 4.92 M/mm3 (4.2-5.4); White Blood Count 4.4 K/mm3 (4.4-11.0)
[2023-05-27 12:47] LABS: ALB/GLOB Ratio 0.9 RATIO (0.9-2.4); AST(SGOT) 21 U/L (15-37); Alanine Aminotransfer ALT/SGPT 23 U/L (13-56); Albumin, Serum 3.8 g/dL (3.2-5.0); Alkaline Phosphatase 102 U/L (45-117); Anion Gap 6 (5-15); BUN 15 mg/dL (7-18); BUN/Creat Ratio 21.3 RATIO (10-20); Calcium,Total 9.3 mg/dL (8.5-10.1); Chloride 107 mmol/L (98-107); Cholesterol 193 mg/dL (200); EST Glomerular Filtration Rate 87 mL/min (>60); Est Glom Filt Rate - Afr Amer 106 mL/min (>60); Globulin 4.1 g/dL (2.2-4.2); Glucose 114 mg/dL (74-106); High Density Lipoprotein 68 mg/dL; Potassium 4.3 mmol/L (3.5-5.1); Protein, Total 7.9 g/dL (6.4-8.2); Sodium Level 136 mmol/L (136-145); Triglycerides 134 mg/dL; Very Low Density Lipoprotein 27 mg/dL (5-40)
== END | disposition home or self-care (01) ==
LOC: BIMLAB 09:05
PROVIDERS: PCP Internal Medicine; Referring Provider Internal Medicine; Visit Provider Internal Medicine
DX: I10 Essential (primary) hypertension (principal); E78.5 Hyperlipidemia, unspecified
CPT/HCPCS: 36415; 80053; 80061; 85025

== ENCOUNTER → 2023-08-23 | Outpatient (CLI) | payer MEDICARE, OTHER, SELFPAY ==
[2023-08-23 12:42] LABS: ALB/GLOB Ratio 1.1 RATIO (0.9-2.4); AST(SGOT) 16 U/L (15-37); Alanine Aminotransfer ALT/SGPT 23 U/L (13-56); Albumin, Serum 3.7 g/dL (3.2-5.0); Alkaline Phosphatase 99 U/L (45-117); Anion Gap 5 (5-15); BUN 13 mg/dL (7-18); BUN/Creat Ratio 18.2 RATIO (10-20); Calcium,Total 9.1 mg/dL (8.5-10.1); Chloride 107 mmol/L (98-107); Cholesterol 199 mg/dL (200); Creatinine, Serum 0.71 mg/dL (0.55-1.02); EST Glomerular Filtration Rate 86 mL/min (>60); Est Glom Filt Rate - Afr Amer 104 mL/min (>60); Free T3 3.6 pg/mL (2.18-3.98); Globulin 3.4 g/dL (2.2-4.2); Glucose 114 mg/dL (74-106); High Density Lipoprotein 63 mg/dL; Potassium 4.3 mmol/L (3.5-5.1); Protein, Total 7.1 g/dL (6.4-8.2); Sodium Level 138 mmol/L (136-145); T4 Free Direct 1.18 ng/dL (0.76-1.46); Thyroid Stim Hormone (TSH) 0.01 uIU/mL (0.358-3.74); Triglycerides 161 mg/dL; Very Low Density Lipoprotein 32 mg/dL (5-40)
== END | disposition home or self-care (01) ==
LOC: BIMLAB 08:55
PROVIDERS: PCP Internal Medicine; Referring Provider Internal Medicine Endocrinology, Diabetes & Metabolism; Visit Provider Internal Medicine Endocrinology, Diabetes & Metabolism
DX: K58.2 Mixed irritable bowel syndrome (principal); E05.00 Thyrotoxicosis with diffuse goiter without thyrotoxic crisis or storm; I10 Essential (primary) hypertension
CPT/HCPCS: 36415; 80053; 80061; 84439; 84443; 84481

== ENCOUNTER → 2023-09-17 | Outpatient (CLI) | payer MEDICARE, OTHER, SELFPAY ==
--- NOTE | 2023-09-17 15:21 | BD_ITS ---
STUDY: DUAL ENERGY X-RAY ABSORPTIOMETRY / DXA REASON FOR EXAM: Female, 73 years old. comparison -- x TECHNIQUE: Bone Mineral Density (BMD) measurements of lumbar spine and bilateral hips were obtained. COMPARISON: Comparison is made with prior study November 15, 2020. FINDINGS: Lumbar Spine (L1-L4): g/cm2 (0.965) / T-score (-0.7) / Z-score (1.4) Findings are suggestive of normal bone density with a low fracture risk. Left Femur Total: g/cm2 (0.905) / T-score (-0.3) / Z-score (1.3) Left Femoral Neck: g/cm2 (0.778) / T-score (-0.6) / Z-score (1.2) Right Femur Total: g/cm2 (0.849) / T-score (-0.8) / Z-score (0.8) Right Femoral Neck: g/cm2 (0.702) / T-score (-1.3) / Z-score (0.5) The T-Scores on the most recent prior examination were: Lumbar Spine (L1-L4): There has been worsening of bone density since the previous examination. Left Femur Total: which represents an improvement of 0.8%. Right Femur Total: which represents a worsening of 2.9%. BD/Dexa Bone Density Study IMPRESSION: The patient is considered osteopenic as outlined below according to World Riaz Organization (WHO) criteria with a low fracture risk. There has been worsening of bone density since the previous examination. Reference Information: The T-score is the number of standard deviations above or below the standard which is normal for young adults at their peak bone mineral density. The World Health Organization (WHO) interprets the T-scores as follows: Above -1 Normal bone density Between -1 and -2.5 Osteopenia Equal to / or below -2.5 Osteoporosis As a practical clinical guideline, osteopenia may be graded as follows: Mild -1 through -1.5 Moderate -1.6 through -2.0 Severe -2.1 through -2.4 The Z-score is the number of standard deviations above or below age-matched controls. A Z-score of less than -1.5 would be considered abnormal. References: 1. NIH Osteoporosis and Related Bone Diseases www osteo.org 2. International Society for Clinical Densitometry www iscd.org 3. National Osteoporosis Foundation www nof.org Electronically Signed: Carl Phillip MD at 13:31 EDT ,
== END | disposition home or self-care (01) ==
LOC: OPBD 15:17
PROVIDERS: PCP Internal Medicine; Referring Provider Internal Medicine Endocrinology, Diabetes & Metabolism; Visit Provider Internal Medicine Endocrinology, Diabetes & Metabolism
DX: Z78.0 Asymptomatic menopausal state (principal); M85.80 Other specified disorders of bone density and structure, unspecified site; E05.00 Thyrotoxicosis with diffuse goiter without thyrotoxic crisis or storm
CPT/HCPCS: 77080

== ENCOUNTER → 2023-09-30 | Outpatient (CLI) | payer MEDICARE, OTHER, SELFPAY ==
[2023-09-30 16:40] LABS: Hemoglobin A1c 5.5 % (3.8-5.6)
[2023-09-30 16:54] LABS: Vitamin B12 390 pg/mL (211-911)
== END | disposition home or self-care (01) ==
LOC: BIMLAB 14:14
PROVIDERS: PCP Internal Medicine; Referring Provider Nurse Practitioner; Visit Provider Nurse Practitioner
DX: R73.01 Impaired fasting glucose (principal); R41.3 Other amnesia
CPT/HCPCS: 36415; 82607; 83036

== ENCOUNTER → 2023-12-31 | Outpatient (CLI) | payer MEDICARE, OTHER, SELFPAY ==
[2023-12-31 15:52] LABS: T4 Free Direct 1.16 ng/dL (0.76-1.46); Thyroid Stim Hormone (TSH) 0.023 uIU/mL (0.358-3.740)
== END | disposition home or self-care (01) ==
LOC: BIMLAB 12:16
PROVIDERS: Nurse Practitioner Family; PCP Internal Medicine; Visit Provider Internal Medicine Endocrinology, Diabetes & Metabolism
DX: E05.00 Thyrotoxicosis with diffuse goiter without thyrotoxic crisis or storm (principal)
CPT/HCPCS: 36415; 84439; 84443; 84481

== ENCOUNTER → 2024-01-02 | Outpatient (CLI) | payer MEDICARE, OTHER, SELFPAY ==
--- NOTE | 2024-01-02 09:05 | BI_ITS ---
MAMMOGRAPHY - BILATERAL SCREENING REASON FOR EXAM: Female, 73 years old. Routine annual screening examination. PERTINENT HISTORY: Aunt with breast cancer. TECHNIQUE: Digital bilateral breast silvia (3D mammographic acquisition) in the CC and MLO projections. 2-D mediolateral oblique (MLO) and craniocaudad (CC) views of both breasts were obtained. CAD: Full Field Digital Mammography with Computer Added Detection was performed. COMPARISON: Comparison is made with prior study December 12, 2022 and November 20, 2021. FINDINGS: Breast Composition: There are scattered areas of fibroglandular density. There are no dominant masses or suspicious calcifications. Stable fat-containing axillary lymph nodes. No other significant abnormalities are identified. There has been no significant change since the prior study. BI/SCRN MAMM (CAD)W/SILVIA BILAT IMPRESSION: Stable bilateral screening mammogram. Yearly follow-up mammogram recommended. (A) ASSESSMENT CATEGORY: BIRADS Category 2: Benign. A letter regarding these results will be sent to the patient by the facility within 30 days. Approximately 10% of breast cancers are not detected by mammography. A normal mammogram should not delay biopsy of a clinically suspicious abnormality. [id number] Electronically Signed: Carl Phillip MD at 9:47 EDT ,
== END | disposition home or self-care (01) ==
LOC: OPBI 09:05
PROVIDERS: PCP Internal Medicine; Referring Provider Nurse Practitioner Women's Health; Visit Provider Nurse Practitioner Women's Health
DX: Z12.31 Encounter for screening mammogram for malignant neoplasm of breast (principal); Z80.3 Family history of malignant neoplasm of breast
CPT/HCPCS: 77063; 77067

== ENCOUNTER → 2024-01-22 | Outpatient (CLI) | payer MEDICARE, OTHER, SELFPAY ==
[2024-01-22 18:05] LABS: Free T3 3.5 pg/mL (2.18-3.98); T4 Free Direct 1.07 ng/dL (0.76-1.46); Thyroid Stim Hormone (TSH) 0.014 uIU/mL (0.358-3.740)
== END | disposition home or self-care (01) ==
LOC: BIMLAB 14:59
PROVIDERS: Internal Medicine Endocrinology, Diabetes & Metabolism; PCP Internal Medicine; Referring Provider Nurse Practitioner Family; Visit Provider Nurse Practitioner Family
DX: K58.2 Mixed irritable bowel syndrome (principal); E05.00 Thyrotoxicosis with diffuse goiter without thyrotoxic crisis or storm
CPT/HCPCS: 36415; 84439; 84443; 84481

== ENCOUNTER → 2024-05-28 | Outpatient (CLI) | payer MEDICARE, OTHER, SELFPAY ==
[2024-05-28 12:35] LABS: Absolute Lymphocyte Count 1.35 X10^3/uL (0.83-4.51); Absolute Neutrophil Count 2.8 X10^3/uL (2.0-7.7); Basophil# 0.02 X10^3/uL; Basophil% 0.4 % (0-1); Eosinophil# 0.08 X10^3/uL; Eosinophils% 1.7 % (0-5); Hematocrit 43.3 % (37-47); Hemoglobin 14.3 g/dL (12.0-15.0); Lymphocyte # 1.35 X10^3/ul (0.83-4.51); Lymphocyte % 29.4 % (19-41); Mean Corpuscular Hgb 30.4 pg (27.0-32.0); Mean Corpuscular Volume 92.1 fL (81-99); Mean Platelet Vol. 9.9 fl (6.2-12.0); Monocyte# 0.38 X10^3/uL; Monocyte% 8.3 % (0-10); NRBC Flagged by Analyzer 0 % (0-5); Neutrophil # 2.75 X10^3/uL (2.7-7.7); Platelet Count 211 K/mm3 (150-450); RBC Distribution Width CV 12.2 % (11.6-14.6); RBC Distribution Width SD 41.5 fl (35.1-43.9); White Blood Count 4.6 K/mm3 (4.4-11.0)
[2024-05-28 12:50] LABS: ALB/GLOB Ratio 0.9 RATIO (0.9-2.4); AST(SGOT) 20 U/L (15-37); Alanine Aminotransfer ALT/SGPT 23 U/L (13-56); Albumin, Serum 3.7 g/dL (3.2-5.0); Alkaline Phosphatase 98 U/L (45-117); Anion Gap 5 (5-15); BUN 10 mg/dL (7-18); BUN/Creat Ratio 13.1 RATIO (10-20); Calcium,Total 9.2 mg/dL (8.5-10.1); Chloride 108 mmol/L (98-107); Cholesterol 161 mg/dL (200); Creatinine, Serum 0.76 mg/dL (0.55-1.02); EST Glomerular Filtration Rate 79 mL/min (>60); Est Glom Filt Rate - Afr Amer 96 mL/min (>60); Globulin 4.2 g/dL (2.2-4.2); Glucose 99 mg/dL (74-106); High Density Lipoprotein 66 mg/dL; Potassium 4.4 mmol/L (3.5-5.1); Protein, Total 7.9 g/dL (6.4-8.2); Sodium Level 139 mmol/L (136-145); Triglycerides 84 mg/dL; Very Low Density Lipoprotein 17 mg/dL (5-40)
== END | disposition home or self-care (01) ==
LOC: BIMLAB 09:47
PROVIDERS: PCP Internal Medicine; Referring Provider Internal Medicine; Visit Provider Internal Medicine
DX: I10 Essential (primary) hypertension (principal); E78.5 Hyperlipidemia, unspecified
CPT/HCPCS: 36415; 80053; 80061; 85025

== ENCOUNTER 2024-07-16 04:37 | Inpatient (IN) | payer MEDICARE, OTHER, SELFPAY ==
[2024-07-16] VITALS (10 sets, daily range): BP systolic 113–223; BP diastolic 61–103; PULSE 70–93; RESP 13–20; TEMP 36.1–36.9; O2SAT 90–99; BMI 33.5; BMI 33.7
--- NOTE | 2024-07-16 05:03 | CT_ITS ---
PROCEDURE: ABDOMEN/PELVIS W IV CONT ONLY 07/16/2024 REASON FOR EXAM: RUQ PAIN TECHNIQUE: Abdomen and pelvis CT with intravenous contrast. Coronal and Sagittal reconstruction series were provided. PATIENT PREPARATION: Per protocol CONTRAST: Isovue 370 VOLUME: 100 mL 18 gauge IV One or more dose reduction techniques were used (e.g., Automated exposure control, adjustment of the mA and/or kV according to patient size, use of iterative reconstruction technique. RADIATION DOSE SUMMARY: CTDlvol: 20.04 mGy DLP: 1060.52 mGycm COMPARISON: None available FINDINGS: Lung bases: Scarring within bilateral lung bases. Liver: Scattered subcentimeter hypodensity within the liver, likely representing small cysts. Gallbladder: Unremarkable Spleen: Unremarkable Pancreas: Unremarkable Adrenals: Unremarkable Kidneys: Kidneys are normal in size. No hydronephrosis or nephrolithiasis.. Bladder: No focal bladder wall thickening. Reproductive Organs: Unremarkable Bowel: No small bowel or large bowel obstruction or dilation. Appendix: Not visualized Lymph nodes: No lymphadenopathy. Vasculature: Patent vasculature. Peritoneum / Retroperitoneum: Unremarkable Bones: No aggressive osseous lesions. No acute fractures. CT/Abdomen/Pelvis W IV Cont ONLY IMPRESSION: No acute pathology within the abdomen or pelvis. Reading Location: [facility]
[2024-07-16 05:19] LABS: Absolute Lymphocyte Count 1.76 X10^3/uL (0.83-4.51); Absolute Neutrophil Count 6.1 X10^3/uL (2.0-7.7); Basophil# 0.06 X10^3/uL; Basophil% 0.7 % (0-1); Eosinophil# 0.12 X10^3/uL; Eosinophils% 1.3 % (0-5); Hematocrit 42.5 % (37-47); Hemoglobin 14.4 g/dL (12.0-15.0); Lymphocyte # 1.76 X10^3/ul (0.83-4.51); Lymphocyte % 19.7 % (19-41); Mean Corp Hgb Conc 33.9 g/dL (32-36); Mean Corpuscular Hgb 30.6 pg (27.0-32.0); Mean Corpuscular Volume 90.4 fL (81-99); Monocyte% 10.1 % (0-10); NRBC Flagged by Analyzer 0 % (0-5); Neutrophil # 6.06 X10^3/uL (2.7-7.7); Neutrophil % 67.9 % (47-70); Platelet Count 164 K/mm3 (150-450); RBC Distribution Width CV 11.8 % (11.6-14.6); RBC Distribution Width SD 39.2 fl (35.1-43.9); White Blood Count 8.9 K/mm3 (4.4-11.0)
[2024-07-16] MEDS: 0.9% Normal Saline (1000mL) 1,000 ML 999 ML IV (05:23)
[2024-07-16] MEDS: Ondansetron 4 MG/2 ML Vial IV (05:23)
[2024-07-16] MEDS: HYDROmorphone 1 MG/ML Syringe IV (05:23)
[2024-07-16 05:38] LABS: Lipase 30 U/L (13-75)
[2024-07-16 05:42] LABS: AST(SGOT) 27 U/L (<=31); Alanine Aminotransfer ALT/SGPT 10 U/L (<=34); Alkaline Phosphatase 114 U/L (35-104); Anion Gap 12 (5-15); BUN 13 mg/dL (4-19); BUN/Creat Ratio 15.7 RATIO (10-20); Bilirubin, Direct < 0.08 mg/dL (0.00-0.30); Calcium,Total 9.1 mg/dL (7.6-11.0); Carbon Dioxide 20.3 mmol/L (21.0-32.0); Chloride 103 mmol/L (98-108); EST Glomerular Filtration Rate 78 (>60); Estimated Creatinine Clearance 76.14 ml/min (50-250); Globulin 3.8 g/dL (2.2-4.2); Glucose 116 mg/dL (70-99); Potassium 4.6 mmol/L (3.3-5.1); Protein, Total 7.7 g/dL (5.9-8.4); Sodium Level 135 mmol/L (133-145); Total Bilirubin 0.54 mg/dL (0.00-1.30)
--- NOTE | 2024-07-16 06:09 | US_ITS ---
PROCEDURE: ABDOMEN LIMITED 07/16/2024 REASON FOR EXAM: RUQ PAIN COMPARISON: CT of the abdomen and pelvis performed on 07/16/2024. FINDINGS: Liver: Mildly heterogeneous seen appearance but normal in size. Gallbladder: Within normal limits. No gallbladder wall thickening or pericholecystic fluid. There is no gallstones present. Common bile duct: 3 mm . Pancreas: Echogenic but limited evaluation. Other: The right kidney measures up to 9.8 cm in width without evidence for hydronephrosis US/Abdomen Limited IMPRESSION: Limited examination due to bowel gas. The gallbladder is without evidence for acute cholecystitis. Reading Location: [id number]
[2024-07-16] MEDS: Ketorolac 15 MG/ML Vial IV ×3 (06:31→22:28)
--- NOTE | 2024-07-16 07:25 | EX.ED.DYSGE1 ---
HPI History of Present Illness Chief Complaint: Flank Pain Informant: patient Narrative Narrative: Patient is a 74-year-old female with past medical history of hypothyroidism hyperlipidemia and whitecoat hypertension. She states that on Saturday after eating lunch she noticed pain mainly in the right upper quadrant. She states that after a few hours symptoms improved. However on Saturday evening she then developed a similar pain that was more intense in nature and radiates towards her right shoulder. She states that she took [id number] medications and waited a few hours but there is no improvement of symptoms and secondary to the persistent pain comes in for evaluation. She reports nausea associate the pain but denies fevers or chills or known sick contacts. She states that there is been no diarrhea or dysuria or constipation. [facility] Medical History Hx of colonic polyps COVID Numbness of fingers of both hands De Quervain's tenosynovitis, left Wears glasses Alcohol use Easy bruising Injury of head and neck Former smoker Leg cramps History of stress test MARIELA I (vulvar intraepithelial neoplasia I) GERD (gastroesophageal reflux disease) Epigastric pain Neuropathy Hypertension Osteopenia Post-menopause Hyperthyroidism Graves disease IBS (irritable bowel syndrome) Glaucoma Constipation Hyperlipidemia Hx of chest pain Home Medications ?Medication ?Instructions ?Recorded ?Last Taken ?Type ascorbic acid (vitamin C) 1,000 mg 1 g PO DAILY 06/03/20 03/03/22 History tablet mecobalamin (vitamin B12) 5,000 5,000 mcg PO DAILY 06/30/21 03/03/22 History mcg lozenge cholecalciferol (vitamin D3) 50 50 mcg PO DAILY 08/15/21 03/03/22 History mcg (2,000 unit) capsule blood pressure monitor #1 ea 09/25/21 03/03/22 Rx zinc gluconate 50 mg tablet 50 mg PO DAILY 06/20/22 Unknown History rosuvastatin 10 mg tablet 10 mg PO DAILY #90 tabs 12/03/23 Unknown Rx methimazole 5 mg tablet 5 mg PO QDAY #90 tabs 05/15/24 Unknown Rx erythromycin 5 mg/gram (0.5 %) eye 1 applic ophthalmic (eye) QHS 06/01/24 Unknown History ointment gabapentin 300 mg capsule 300 mg PO QHS 06/01/24 Unknown History propylene glycol 0.6 % eye drops 1 drp ophthalmic (eye) TID-QID 06/01/24 Unknown History (Systane Balance) silver sulfadiazine 1 % topical 1 applic topical QDAY PRN wound 06/01/24 Unknown Rx cream healing #20 grams benzonatate 100 mg capsule 100 mg PO TID #60 caps 07/13/24 Unknown Rx Allergy/AdvReac Type Severity Reaction Status Date / Time doxycycline Allergy Unknown Verified 07/16/24 04:39 prednisone AdvReac Severe Insomnia Verified 07/16/24 04:39 codeine AdvReac Mild severe Verified 07/16/24 04:39 constipation Family History Aunt Breast cancer Mother Neuropathy Diabetes Pacemaker Glaucoma Surgical History Cataract extraction status Hx of surgical procedure H/O vulvectomy History of nasal septoplasty History of wisdom tooth extraction History of colonoscopy (~2007) Hx of hysterectomy Social History household members: none current occupational status: retired current occupation: worked in [employer] Smoking Status: Former smoker quit date: 04/08/98 pack-years: 13 alcohol intake: former details: 2024, never heavy drinker substance use type: does not use diet: other what type of physical activity do you participate in: walking and weight training frequency: 3-4 times per week seatbelt use: always do you feel safe at home: Yes additional social history: ROS ROS ED Constitutional Constitutional ED: Denies chills or fever(s) Eyes Eyes: Denies change in vision ENT ENT ED: Denies sore throat Cardiovascular Cardiovascular: Denies chest pain Respiratory/Chest Respiratory/Chest: Denies cough or dyspnea Gastrointestinal Gastrointestinal: Reports abdominal pain and nausea; Denies constipation, diarrhea or vomiting Genitourinary Genitourinary ED: Denies dysuria or hematuria Musculoskeletal Musculoskeletal: Denies myalgias Integumentary Denies rash Neurologic Neurologic: Denies headache(s) Hematologic/Lymphatic Hematologic/Lymphatic: Denies easy bleeding or easy bruising EXAM Physical Exam Const Vital Signs: 07/16/24 04:40 07/16/24 07:00 07/16/24 08:13 Temperature 98.4 F Temperature Source Temporal Pulse Rate 83 70 74 Respiratory Rate 19 H 13 14 Blood Pressure 223/103 H 131/80 H 118/61 Blood Pressure Mean 143 97 80 Pulse Ox 99 90 94 Oxygen Delivery Method Room Air Room Air Room Air Positive well nourished and well developed General Appearance ED: well developed; Negative for pallor HEENT Reports moist mucous membranes HEENT Narrative: No tongue or lip swelling no oral lesions no airway edema or compromise No secondary findings in the posterior pharynx to suggest infection Eyes PERRL and EOMs intact bilaterally General Eye ED: Negative for scleral icterus Neck supple and no JVD Resp normal respiratory effort and clear to auscultation bilaterally Resp Narrative: No nasal flaring retractions or accessory muscle use No stridor Cardio regular rate and regular rhythm Rate: other Other Details: Heart is regular rate and rhythm without murmurs rubs or gallops Radial and carotid pulses are equal and symmetric GI non-distended and no masses GI Narrative: Abdomen is soft and nondistended with normal active bowel sounds. There is pain with palpation in the right upper quadrant with voluntary guarding at the site. Negative Niño sign however. No peritoneal signs. No fluid wave. No pulsatile mass. Auscultation: normoactive bowel sounds Palpation: soft Back/Spine Back/Spine Narrative: Mild right CVA pain noted Extremity normal to inspection Neuro oriented x3, CN's II-XII intact bilaterally and no sensory deficits noted Sensorium / Orientation: alert Motor Exam: strength 5/5 throughout Psych mental status grossly normal Skin no rashes or lesions noted and no wounds General Skin Exam: Negative for jaundice or pallor MDM MDM MDM Narrative Medical decision making narrative: Patient arrived to the ER hypertensive but reports a history of whitecoat hypertension and otherwise vitals are stable. As she reported pain in the right upper quadrant radiating towards the right shoulder and there is concern this could be biliary colic versus acute cholecystitis. Patient may also have atypical pancreatitis or kidney stone. Secondary to this basic labs were obtained with a CT scan with IV contrast. This was performed as I do not have ultrasound available at approximately 5 AM. Patient's blood work revealed no clinically significant findings and the CT scan revealed no acute abdominal pathology. After receiving IV fluids IV Dilaudid and IV Toradol the patient reported improvement of pain but not resolution and still had voluntary guarding with palpation. Therefore an ultrasound was ordered to check for potential non-radiopaque gallstones or gallbladder dysfunction that was not noted on CT scan. Ultrasound revealed no acute finding. The case was then discussed with general surgeon on-call Dr. Grimaldo. He recommends trying a GI cocktail and Protonix as the CT and ultrasound are negative and the location of her pain could be associated with potential ulcer. This medication was provided but despite this patient still complains of intractable abdominal pain. Therefore due to the persistent complaint pain that is not resolving despite IV Dilaudid IV Toradol IV fluids GI cocktail and IV Protonix medicine was contacted for admission with potential GI consult and need for endoscopy. Medicine agrees to accept the patient at this time for continued monitoring and care History & Record Review Discussion w/independent historian: Patient Lab Data Attestation: I reviewed the patient's lab results. Labs: Laboratory Results - last 24 hr 07/16/24 05:06 WBC 8.9 RBC 4.70 Hgb 14.4 Hct 42.5 MCV 90.4 MCH 30.6 MCHC 33.9 RDW Std Deviation 39.2 RDW Coeff of Manny 11.8 Plt Count 164 MPV 10.0 Immature Gran % (Auto) 0.300 Neut % (Auto) 67.9 Lymph % (Auto) 19.7 Lassen % (Auto) 10.1 H Eos % (Auto) 1.3 Baso % (Auto) 0.7 Absolute Neuts (auto) 6.1 Absolute Lymphs (auto) 1.76 Nucleated RBC % 0 Sodium 135 Potassium 4.6 Chloride 103 Carbon Dioxide 20.3 L Anion Gap 12 BUN 13 Creatinine 0.80 Estim Creat Clear Calc 76.14 Est GFR (MDRD) Non-Af 78 BUN/Creatinine Ratio 15.7 Glucose 116 H Calcium 9.1 Total Bilirubin 0.54 Direct Bilirubin < 0.08 AST 27 ALT 10 Alkaline Phosphatase 114 H Total Protein 7.7 Albumin 4.0 Globulin 3.8 Lipase 30 Radiography Diagnostic Testing: Clinical Impression(s) from Imaging Studies Abdomen/Pelvis CT 07/16/24 05:03 IMPRESSION: No acute pathology within the abdomen or pelvis. Reading Location: [facility] Abdomen Ultrasound 07/16/24 06:09 IMPRESSION: Limited examination due to bowel gas. The gallbladder is without evidence for acute cholecystitis. Reading Location: [id number] Management Discussion w/another healthcare provider: Hospitalist and Inventory Audit Clerk Discharge Plan Triage Chief Complaint: Flank Pain ED Provider: Jacinto Reyes Dx/Rx/DC Orders Clinical Impression: Hyperthyroidism, Hyperlipidemia, Intractable abdominal pain Prescriptions: No Action ascorbic acid (vitamin C) 1,000 mg tablet 1 g PO DAILY mecobalamin (vitamin B12) 5,000 mcg lozenge 5,000 mcg PO DAILY Rx Instructions: allow to dissolve in mouth OR may chew lightly before swallowing (DME) blood pressure monitor Kit See Rx Instructions .Route Qty: 1 0RF Rx Instructions: Check daily and as needed cholecalciferol (vitamin D3) 50 mcg (2,000 unit) capsule 50 mcg PO DAILY zinc gluconate 50 mg tablet 50 mg PO DAILY erythromycin 5 mg/gram (0.5 %) ointment 1 applic ophthalmic (eye) QHS gabapentin 300 mg capsule 300 mg PO QHS Systane Balance 0.6 % drops 1 drp ophthalmic (eye) TID-QID silver sulfadiazine 1 % cream 1 applic topical QDAY PRN (Reason: wound healing) Qty: 20 0RF Rx Instructions: apply a 1.5 mm thickness benzonatate 100 mg capsule 100 mg PO TID Qty: 60 0RF rosuvastatin 10 mg tablet 10 mg PO DAILY Qty: 90 3RF methimazole 5 mg tablet 5 mg PO QDAY Qty: 90 1RF Primary Care Provider: Freda Wu Referrals: Freda Wu MD [Primary Care Provider] - Print Language: [place] Disposition Disposition: Acute Care Hospital [facility]
[2024-07-16] MEDS: Lidocaine 2% Viscous15 ML UDC 15 ML PO (08:03)
[2024-07-16] MEDS: Mag Hydrox/Al Hydrox/Simeth 30 ML UDC PO (08:03)
[2024-07-16] MEDS: Pantoprazole Sodium 40 MG in 0.9% Normal Saline (100mL MB+) 100 ML 330 MG IV ×2 (08:09→23:09)
--- NOTE | 2024-07-16 09:16 | HP.PCM.HOS_ITS ---
HPI - General General Date of Admission: 07/16/24 Date of Service: 07/16/24 Chief Complaint: Right upper abdominal/lower chest pain HPI Narrative OMI ANDERSON, is a 74-year-old female with a history of hyperthyroidism, hyperlipidemia who presented to [facility] ED 07/16/24 with right upper quadrant pain since Saturday after eating lunch. Symptoms have progressively worsened since then and now symptoms radiate to her shoulder/up to the neck. Given the progressive pain with radiation patient presented to the ED. In ED patient vitally stable, given right upper quadrant pain with tenderness she had CT abdomen pelvis which was unrevealing, given nature of her symptoms she had an abdominal ultrasound to see if there were any gallstones not seen on the CT however this was also negative. Surgery service contacted due to her persistent pain and it was suggested that patient could possibly have an ulcer and recommended PPI and GI cocktail. Patient received both of these in the ED without significant relief so hospitalist contacted for admission for observation and possible endoscopy symptoms do not improve. Lab workup overall unremarkable. Patient evaluated at bedside and reports the pain that started on Saturday and has progressively worsened, at times it is a sharp pain and worsens with deep breath and coughing, does report since last Saturday she had a runny nose and was achy and had the symptoms shifting to her chest over the weekend with cough and chest congestion, symptoms slowly improved and she felt okay on Saturday and then the symptoms started on Saturday. Patient unnecessarily overtly short of breath but does not take a deep breath due to the pain. No productive cough at this time, no fevers or chills. Patient denies any nausea or changes in bowel or bladder. [facility] Medical History Hx of colonic polyps COVID Numbness of fingers of both hands De Quervain's tenosynovitis, left Wears glasses Alcohol use Easy bruising Injury of head and neck Former smoker Leg cramps History of stress test MARIELA I (vulvar intraepithelial neoplasia I) GERD (gastroesophageal reflux disease) Epigastric pain Neuropathy Hypertension Osteopenia Post-menopause Hyperthyroidism Graves disease IBS (irritable bowel syndrome) Glaucoma Constipation Hyperlipidemia Hx of chest pain Home Medications ?Medication ?Instructions ?Recorded ?Last Taken ?Type ascorbic acid (vitamin C) 1,000 mg 1 g PO DAILY 03/03/22 History tablet mecobalamin (vitamin B12) 5,000 5,000 mcg PO DAILY 03/03/22 History mcg lozenge cholecalciferol (vitamin D3) 50 50 mcg PO DAILY 03/03/22 History mcg (2,000 unit) capsule blood pressure monitor #1 ea 09/25/21 03/03/22 Rx zinc gluconate 50 mg tablet 50 mg PO DAILY 06/20/22 Un known History rosuvastatin 10 mg tablet 10 mg PO DAILY #90 tabs 11/07 10/29 Unknown Rx methimazole 5 mg tablet 5 mg PO QDAY #90 tabs Unknown Rx erythromycin 5 mg/gram (0.5 %) eye 1 applic ophthalmic (eye) QHS 06/01/24 Unknown History ointment gabapentin 300 mg capsule 300 mg PO QHS 06/01/24 Unkno wn History propylene glycol 0.6 % eye drops 1 drp ophthalmic (eye ) TID-QID 06/01/24 Unknown History (Systane Balance) silver sulfadiazine 1 % topical 1 applic topical QDAY PRN wound 06/01/24 Unknown Rx cream healing #20 grams benzonatate 100 mg capsule 100 mg PO TID #60 caps 10/30 Unknown Rx Allergy/AdvReac Type Severity Reaction Status Date / Time doxycycline Allergy Unknown Verified 07/16/24 04:39 prednisone AdvReac Severe Insomnia Verified 07/16/24 04:39 codeine AdvReac Mild severe Verified 07/16/24 04:39 constipation Family History Aunt Breast cancer Mother Neuropathy Diabetes Pacemaker Glaucoma Surgical History Cataract extraction status Hx of surgical procedure H/O vulvectomy History of nasal septoplasty History of wisdom tooth extraction History of colonoscopy (~2007) Hx of hysterectomy Social History household members: none current occupational status: retired current occupation: worked in [employer] Smoking Status: Former smoker quit date: 04/08/98 pack-years: 13 alcohol intake: former details: 2024, never heavy drinker substance use type: does not use diet: other what type of physical activity do you participate in: walking and weight training frequency: 3-4 times per week seatbelt use: always do you feel safe at home: Yes additional social history: ROS ROS Narrative General: Denies fever/chills HENT: Denies headache, nasal congestion/runny nose improved EYES: Denies changes in vision Resp: Has had somewhat of a cough but presently not productive, denies shortness of breath but difficulty taking a deep breath Cardiac: Lower right chest pain versus right upper abdominal pain GI: Right upper abdominal pain, denies changes in bowel, denies nausea/vomiting : Denies changes in urination Extremity: Denies swelling MSK: Denies weakness Neuro: Has tendinitis in left ankle and has some chronic neuropathy in both legs Heme: Denies any bleeding or bruising Skin: Denies rashes Psychiatric: No complaints voiced Vital Signs Vital Signs Vital Signs: 07/16/24 04:40 07/16/24 07:00 07/16/24 08:13 Temperature 98.4 F Temperature Source Temporal Pulse Rate 83 70 74 Respiratory Rate 19 H 13 14 Blood Pressure 223/103 H 131/80 H 118/61 Blood Pressure Mean 143 97 80 Pulse Ox 99 90 94 Oxygen Delivery Method Room Air Room Air Room Air Weight Weight: 97.3 kg Body Mass Index (BMI) 33.5 Physical Exam Narrative General: Alert, oriented, resting quietly in bed HEENT: Atraumatic, normocephalic Eyes: Anicteric, normal conjunctiva, extraocular movements grossly intact Neck: Supple Respiratory: Do not hear any overt wheezes or rhonchi however patient will not take a deep breath due to the pain so difficult to assess, normal respiratory effort Cardiovascular: Regular rate and rhythm GI: Soft, tender to palpation with voluntary guarding in hide right upper quadrant/right lower chest wall Extremities: No edema Musculoskeletal: Moving all extremities Neuro: No overt focal neurological deficits Skin: No rashes appreciated Psych: Cooperative Results Lab / Micro Data 07/16/24 05:06 07/16/24 05:06 Labs: Laboratory Results - last 24 hr 07/16/24 05:06: WBC 8.9, RBC 4.70, Hgb 14.4, Hct 42.5, MCV 90.4, MCH 30.6, MCHC 33.9, RDW Std Deviation 39.2, RDW Coeff of Manny 11.8, Plt Count 164, MPV 10.0, Immature Gran % (Auto) 0.300, Neut % (Auto) 67.9, Lymph % (Auto) 19.7, [place] % (Auto) 10.1 H, Eos % (Auto) 1.3, Baso % (Auto) 0.7, Absolute Neuts (auto) 6.1, Absolute Lymphs (auto) 1.76, Nucleated RBC % 0, Sodium 135, Potassium 4.6, Chloride 103, Carbon Dioxide 20.3 L, Anion Gap 12, BUN 13, Creatinine 0.80, Estim Creat Clear Calc 76.14, Est GFR (MDRD) Non-Af 78, BUN/Creatinine Ratio 15.7, Glucose 116 H, Calcium 9.1, Total Bilirubin 0.54, Direct Bilirubin < 0.08, AST 27, ALT 10, Alkaline Phosphatase 114 H, Total Protein 7.7, Albumin 4.0, Globulin 3.8, Lipase 30 Imaging Radiology Impression Abdomen/Pelvis CT 07/16/24 05:03 IMPRESSION: No acute pathology within the abdomen or pelvis. Reading Location: [facility] Abdomen Ultrasound 07/16/24 06:09 IMPRESSION: Limited examination due to bowel gas. The gallbladder is without evidence for acute cholecystitis. Reading Location: [facility] Assessment & Plan Assessment/Plan (1) Inspiratory pain: PLAN: Plan # Right upper abdominal pain/right lower chest wall pain - Clinical picture somewhat unclear as patient reports right upper abdominal pain however it is very high and seems almost under the chest wall and is worse with inspiration - Patient has had URI-like symptoms CT abdomen and abdominal ultrasound negative, could certainly be-an ulcer or some kind of similar pathology so we will start on IV PPI and scheduled simethicone however given patient's recent URI symptoms and pleuritic sounding pain with inspiration will obtain chest x-ray and viral swab - If chest x-ray unrevealing may need to obtain CT of the chest, hesitate to do so with contrast given she just had contrasted MRI - May need D-dimer if workup unrevealing and symptoms persist however given patient vitally stable and not hypoxic and Wells score of 0 making PE very unlikely though not outside the realm of possibility - Incentive spirometer - Will schedule Tylenol and as needed medications as well while workup underway, will avoid NSAIDs given ulcers in the differential but this turns out to be more pleuritic pain from pulmonary etiology would favor NSAIDs - It is reasonable to try a lidocaine patch to the right lower chest wall as well # Hyperthyroidism - Continue methimazole # Hyperlipidemia - Continue home medications #DVT ppx: Lovenox subcu Judy Rosa MD Time spent in the patient's overall evaluation, decision-making process, review of diagnostic data, adjustment of management, discussion with other providers, nursing and ancillary staff involved in patient's care documentation, 57 Minutes Charges/Coding Visit Charges Inpatient E&M: 30943 Init Hosp L2
--- NOTE | 2024-07-16 09:33 | RAD_ITS ---
EXAM: XR Chest, 2 Views CLINICAL INDICATION: PLEURITIC CHEST PAIN TECHNIQUE: Frontal and lateral views of the chest. COMPARISON: No relevant prior studies available. FINDINGS: LUNGS AND PLEURAL SPACES: Unremarkable. No consolidation. No pneumothorax. HEART: Unremarkable. No cardiomegaly. MEDIASTINUM: Unremarkable. Normal mediastinal contour. BONES/JOINTS: Unremarkable. No acute fracture. RAD/Chest PA and Lateral IMPRESSION: No acute cardiopulmonary process. Reading Location: [facility]
[2024-07-16] MEDS: Lidocaine 5% Patch 1 PATCH TOPICAL (12:20)
[2024-07-16] MEDS: Methimazole 5 MG Tablet PO (12:20)
[2024-07-16] MEDS: Acetaminophen 500 MG Tablet 1000 MG PO ×2 (12:27→22:32)
[2024-07-16 12:54] LABS: Bacteria 0 SEEN /hpf (None Seen); Mucous, Urine 0 SEEN /hpf (<or=2+); Squamous Epithelial Cells - UA 0 SEEN /hpf (5-10)
[2024-07-16 12:57] LABS: Color, Urine Yellow (Yellow); Glucose, Dipstick Normal (Normal); Ketone-Dipstick Negative (Negative); Leukocyte Esterase-Dipstick 25 /ul (Negative); Nitrite-Dipstick Negative (Negative); Occult Blood-Urine 25 /ul (Negative); Protein-Dipstick 30 mg/dl (Negative); Urine Bilirubin Dipstick Negative (Negative); Urine Clarity Clear (Clear); Urine Urobilinogen 1 mg/dl (Normal)
[2024-07-16 13:47] LABS: Red Blood Cells-Urine 0-5 SEEN /hpf (0-5); White Blood Cells 0-5 SEEN /hpf (0-5)
[2024-07-16] MEDS: SimETHICONE 80 MG Chewable Tablet PO ×3 (14:33→23:10)
[2024-07-16] MEDS: 0.9% Saline Lock 10 ML Syringe IV ×3 (14:37→18:07)
--- NOTE | 2024-07-16 15:08 | CT_ITS ---
EXAM: CT Chest Without Intravenous Contrast CLINICAL INDICATION: SIGNIFICANT PLEURITIC R LOWER CHEST WALL PAIN TECHNIQUE: Axial computed tomography images of the chest without intravenous contrast. This CT exam was performed using one or more of the following dose reduction techniques: automated exposure control, adjustment of the mA and/or kV according to patient size, and/or use of iterative reconstruction technique. COMPARISON: No relevant prior studies available. FINDINGS: LUNGS AND PLEURAL SPACES: Small right pleural effusion with scattered areas of ground-glass attenuation of the right lateral and posterior lower lobe, likely secondary to infectious or inflammatory process. Mild lung emphysema. No consolidation. No pneumothorax. HEART: Unremarkable. No cardiomegaly. No significant pericardial effusion. No significant coronary artery calcifications. MEDIASTINUM: Scattered mediastinal lymph nodes some of which are upper limits of normal in size and are most likely reactive lymph nodes. Small esophageal hiatal hernia. BONES/JOINTS: Unremarkable. No dislocation. No rib fractures. SOFT TISSUES: Unremarkable. VASCULATURE: Scattered calcified atherosclerotic disease of aorta. No thoracic aortic aneurysm. LYMPH NODES: See above. LIVER: Hepatic cysts. CT/Chest without Contrast IMPRESSION: 1. Small right pleural effusion with scattered areas of ground-glass attenuati on of the right lateral and posterior lower lobe, likely secondary to infectious or inflammatory process. 2. Scattered mediastinal lymph nodes some of which are upper limits of normal in size and are most likely reactive lymph nodes. 3. Small esophageal hiatal hernia. Reading Location: [facility]
[2024-07-16] MEDS: Ceftriaxone 2 GM in 0.9% Normal Saline (50mL MB+) 50 ML IV (17:23)
[2024-07-16] MEDS: 0.9% Normal Saline (100mL Bag) 100 ML 15 ML IV (17:24)
[2024-07-16] MEDS: Azithromycin 500 MG in 0.9% Normal Saline (250mL Bag) 250 ML 255 MG IV (18:06)
[2024-07-16] MEDS: Ipratropium/Albuterol Sulfate 3 ML AMPUL.NEB INHALATION (19:52)
[2024-07-16] MEDS: Gabapentin 300 MG Capsule PO (22:28)
[2024-07-16] MEDS: Atorvastatin Calcium 20 MG Tablet PO (22:33)
[2024-07-16] MEDS: guaiFENesin 10 ML UDC (200MG/10ML) 20 ML PO (23:30)
[2024-07-16] MEDS: oxyCODONE 5 MG Tablet PO (23:30)
[2024-07-17] VITALS (11 sets, daily range): BP systolic 121–150; BP diastolic 55–78; PULSE 64–99; RESP 16–18; TEMP 36.6–37; O2SAT 95–98
[2024-07-17 05:20] LABS: Absolute Lymphocyte Count 1.65 X10^3/uL (0.83-4.51); Absolute Neutrophil Count 5.5 X10^3/uL (2.0-7.7); Basophil# 0.02 X10^3/uL; Basophil% 0.2 % (0-1); Eosinophil# 0.07 X10^3/uL; Eosinophils% 0.9 % (0-5); Hematocrit 36.7 % (37-47); Hemoglobin 12.1 g/dL (12.0-15.0); Lymphocyte # 1.65 X10^3/ul (0.83-4.51); Lymphocyte % 20.4 % (19-41); Mean Corpuscular Hgb 30.7 pg (27.0-32.0); Mean Corpuscular Volume 93.1 fL (81-99); Mean Platelet Vol. 9.6 fl (6.2-12.0); Monocyte% 9.9 % (0-10); NRBC Flagged by Analyzer 0 % (0-5); Neutrophil # 5.52 X10^3/uL (2.7-7.7); Neutrophil % 68.2 % (47-70); Platelet Count 142 K/mm3 (150-450); RBC Distribution Width CV 11.9 % (11.6-14.6); RBC Distribution Width SD 40.2 fl (35.1-43.9); Red Blood Count 3.94 M/mm3 (4.2-5.4); White Blood Count 8.1 K/mm3 (4.4-11.0)
[2024-07-17 05:48] LABS: ALB/GLOB Ratio 1.2 RATIO (0.9-2.4); AST(SGOT) 13 U/L (<=31); Alanine Aminotransfer ALT/SGPT 8 U/L (<=34); Albumin, Serum 3.4 g/dL (3.4-4.8); Alkaline Phosphatase 90 U/L (35-104); Anion Gap 10 (5-15); BUN 16 mg/dL (4-19); BUN/Creat Ratio 20.3 RATIO (10-20); Calcium,Total 8.6 mg/dL (7.6-11.0); Carbon Dioxide 23.2 mmol/L (21.0-32.0); Chloride 104 mmol/L (98-108); Creatinine, Serum 0.78 mg/dL (0.70-1.20); EST Glomerular Filtration Rate 81 (>60); Estimated Creatinine Clearance 76.34 ml/min (50-250); Glucose 109 mg/dL (70-99); Potassium 4.5 mmol/L (3.3-5.1); Protein, Total 6.4 g/dL (5.9-8.4); Sodium Level 138 mmol/L (133-145); Total Bilirubin 0.28 mg/dL (0.00-1.30)
[2024-07-17] MEDS: Acetaminophen 500 MG Tablet 1000 MG PO ×3 (06:15→20:47)
[2024-07-17] MEDS: guaiFENesin 10 ML UDC (200MG/10ML) 20 ML PO ×3 (06:16→22:31)
[2024-07-17] MEDS: Ipratropium/Albuterol Sulfate 3 ML AMPUL.NEB INHALATION ×3 (07:10→19:25)
[2024-07-17] MEDS: SimETHICONE 80 MG Chewable Tablet PO (09:18)
[2024-07-17] MEDS: Azithromycin 500 MG in 0.9% Normal Saline (250mL Bag) 250 ML 150 MG IV (09:19)
[2024-07-17] MEDS: Methimazole 5 MG Tablet PO (09:26)
[2024-07-17] MEDS: Lidocaine 5% Patch 1 PATCH TOPICAL (09:27)
[2024-07-17] MEDS: Enoxaparin 40 MG/0.4 ML Syringe SC (09:28)
[2024-07-17] MEDS: Pantoprazole Sodium 40 MG in 0.9% Normal Saline (100mL MB+) 100 ML 330 MG IV ×2 (11:24→20:46)
[2024-07-17] MEDS: Ceftriaxone 2 GM in 0.9% Normal Saline (50mL MB+) 50 ML IV (11:57)
--- NOTE | 2024-07-17 13:27 | PCM.PN.HOSP ---
Reason for Visit Reason for Visit: Diagnoses Chest pain on breathing (07/16/24) Subjective Subjective Patient does still have significant amount of pain when she takes a big deep breath but it is improving Objective Data Objective Data Vital Signs: Vital Signs Temp Pulse Resp BP Pulse Ox O2 Del Method 98.3 F 84 18 121/57 H 98 Room Air 07/17/24 09:00 07/17/24 09:00 07/17/24 09:00 07/17/24 09:00 07/17/24 09:00 07/17/24 09:00 Oxygen Delivery Method Room Air Weight: 97.8 kg Body Mass Index (BMI) 33.7 Intake & Output: Intake and Output for Last 24 Hours 07/15/24 07/16/24 07/17/24 23:59 23:59 23:59 Intake Total 1525 / 1525 2360 / 2360 Balance 1525 / 1525 2360 / 2360 Lab / Micro Data 07/17/24 05:00 07/17/24 05:00 Labs: Laboratory Results - last 24 hr 07/16/24 12:40: Urine RBC 0-5 SEEN, Urine WBC 0-5 SEEN, Ur Squamous Epith Cells 0 SEEN, Urine Bacteria 0 SEEN, Urine Mucus 0 SEEN 07/17/24 05:00: WBC 8.1, RBC 3.94 L, Hgb 12.1, Hct 36.7 L, MCV 93.1, MCH 30.7, MCHC 33.0, RDW Std Deviation 40.2, RDW Coeff of Manny 11.9, Plt Count 142 L, MPV 9.6, Immature Gran % (Auto) 0.400, Neut % (Auto) 68.2, Lymph % (Auto) 20.4, [place] % (Auto) 9.9, Eos % (Auto) 0.9, Baso % (Auto) 0.2, Absolute Neuts (auto) 5.5, Absolute Lymphs (auto) 1.65, Nucleated RBC % 0, Sodium 138, Potassium 4.5, Chloride 104, Carbon Dioxide 23.2, Anion Gap 10, BUN 16, Creatinine 0.78, Estim Creat Clear Calc 76.34, Est GFR (MDRD) Non-Af 81, BUN/Creatinine Ratio 20.3 H, Glucose 109 H, Calcium 8.6, Total Bilirubin 0.28, AST 13, ALT 8, Alkaline Phosphatase 90, Total Protein 6.4, Albumin 3.4, Globulin 3.0, Albumin/Globulin Ratio 1.2 Micro: Microbiology 07/16/24 12:38 Mucosa - Nasopharyngeal Respiratory Panel (PCR) - Final 07/16/24 12:38 Mucosa - Nasopharyngeal Coronavirus COVID-19 PCR - Final Radiography Diagnostic Testing: Radiology Impression Chest CT 07/16/24 15:08 IMPRESSION: 1. Small right pleural effusion with scattered areas of ground-glass attenuation of the right lateral and posterior lower lobe, likely secondary to infectious or inflammatory process. 2. Scattered mediastinal lymph nodes some of which are upper limits of normal in size and are most likely reactive lymph nodes. 3. Small esophageal hiatal hernia. Reading Location: [facility] Physical Exam Narrative General: Alert, oriented, no apparent distress HEENT: Atraumatic, normocephalic Eyes: Anicteric, normal conjunctiva, extraocular movements grossly intact Neck: Supple Respiratory: No the patient able to take a greater inspiration crackles are heard at right base, normal respiratory effort Cardiovascular: Regular rate and rhythm GI: Soft, nontender, nondistended however does still have some pain over right lower ribs Extremities: No edema Musculoskeletal: Moving all extremities Neuro: No overt focal neurological deficits Skin: No rashes appreciated Psych: Cooperative Assessment & Plan Assessment/Plan (1) Inspiratory pain: PLAN: Plan #Community-acquired pneumonia -Clinical picture initially unclear as she was reporting right upper abdominal pain however it sounded more pleuritic in nature so CT of the chest obtained which did reveal a right sided lower lobe pneumonia -DuoNebs and as needed albuterol -Sputum culture, respiratory panel is negative - Robitussin as needed - Rocephin and azithromycin - Lidocaine patch to right lower chest wall - Patient is improving, continue incentive spirometer, anticipate DC over the weekend Chronic medical problems and/or problems not being actively addressed during today's encounter: # Hyperthyroidism - Continue methimazole # Hyperlipidemia - Continue home medications #DVT ppx: Lovenox subcu Judy Rosa MD Charges/Coding Visit Charges Inpatient E&M: 68737 [facility] Hosp L1
--- NOTE | 2024-07-17 14:48 | CASEMGMT ---
Met with patient to complete EBRG form. BERG form explained to patient who voiced understanding and signed form. Original form placed in pt?s chart and copy provided to patient. Millie Mcintyre, Discharge Planning Asst
[2024-07-17] MEDS: oxyCODONE 5 MG Tablet PO (15:16)
--- NOTE | 2024-07-17 17:56 | CASEMGMT ---
RN?CM?STRATEGIC INSIGHTS LEAD?CM?to room to meet with patient for initial transition planning/care coordination?assessment.?RN?CM?introduced self and role at [facility].? Pt voices understanding and consents to?assessment?at this time.? Pt sitting up in chair in room in no distress at this time.? Pt is A/O at this time and answers all questions appropriately.?? Care providers, pharmacy, and demographics verified/updated at this time. PCP: Dr Wu Specialists: Dr Espinosa- for thyroid issues, Dr Leon-ELECTRIC METER TECHNICIAN, Dr Sharpe-surgeon, Dr Bower-ENT Preferred Pharmacy: [facility] Insurance: [facility] [place] Living Will/HPOA:?Pt states she has both LW and HCPOA, who is her sis-in-law, Jacqueline Godoy. Her niece, Andreina Zavala, is 1st alterntative. LNOK: Sis-in-law, niece, brother. Living Arrangements: Lives alone in condo w/one small step to enter. Independent w/ADL's and IADL's. Transportation:?Pt states drives self and states no transportation concerns at this time.?Friend will take her home @ dc. DME: ? Denies using any DME and denies needs. HHC/SNF: No hx of either. No needs identified. Pt wishes to return home and states has no concerns with going home at time of discharge. PLAN:??Home Shiv FREEMANN?RN?CM
[2024-07-17] MEDS: Senna/Docusate Sodium 1 Tablet 2 TABLET PO (20:46)
[2024-07-17] MEDS: Gabapentin 300 MG Capsule PO (20:46)
[2024-07-17] MEDS: Atorvastatin Calcium 20 MG Tablet PO (20:47)
[2024-07-18] VITALS (8 sets, daily range): BP systolic 129–165; BP diastolic 64–81; PULSE 78–97; RESP 16–20; TEMP 36.3–36.7; O2SAT 94–97
[2024-07-18] MEDS: MELATONIN 3 MG TABLET PO (01:52)
[2024-07-18] MEDS: guaiFENesin 10 ML UDC (200MG/10ML) 20 ML PO (02:32)
[2024-07-18] MEDS: Acetaminophen 500 MG Tablet 1000 MG PO ×2 (03:59→13:41)
[2024-07-18 07:28] LABS: Absolute Lymphocyte Count 1.58 X10^3/uL (0.83-4.51); Absolute Neutrophil Count 3.6 X10^3/uL (2.0-7.7); Basophil# 0.05 X10^3/uL; Basophil% 0.8 % (0-1); Eosinophil# 0.15 X10^3/uL; Eosinophils% 2.5 % (0-5); Hematocrit 36.9 % (37-47); Hemoglobin 12.1 g/dL (12.0-15.0); Lymphocyte # 1.58 X10^3/ul (0.83-4.51); Lymphocyte % 26.5 % (19-41); Mean Corp Hgb Conc 32.8 g/dL (32-36); Mean Corpuscular Hgb 30.5 pg (27.0-32.0); Mean Corpuscular Volume 92.9 fL (81-99); Mean Platelet Vol. 10.1 fl (6.2-12.0); Monocyte# 0.57 X10^3/uL; Monocyte% 9.5 % (0-10); NRBC Flagged by Analyzer 0 % (0-5); Neutrophil # 3.59 X10^3/uL (2.7-7.7); Neutrophil % 60.2 % (47-70); Platelet Count 181 K/mm3 (150-450); RBC Distribution Width CV 11.9 % (11.6-14.6); RBC Distribution Width SD 40.7 fl (35.1-43.9); Red Blood Count 3.97 M/mm3 (4.2-5.4)
[2024-07-18] MEDS: Ipratropium/Albuterol Sulfate 3 ML AMPUL.NEB INHALATION ×2 (07:44→13:45)
[2024-07-18 07:45] LABS: Anion Gap 10 (5-15); BUN 10 mg/dL (4-19); BUN/Creat Ratio 13.9 RATIO (10-20); Calcium,Total 8.9 mg/dL (7.6-11.0); Chloride 105 mmol/L (98-108); Creatinine, Serum 0.69 mg/dL (0.70-1.20); EST Glomerular Filtration Rate 92 (>60); Estimated Creatinine Clearance 76.34 ml/min (50-250); Glucose 107 mg/dL (70-99); Potassium 4.4 mmol/L (3.3-5.1); Sodium Level 138 mmol/L (133-145)
[2024-07-18] MEDS: Lidocaine 5% Patch 1 PATCH TOPICAL (08:27)
[2024-07-18] MEDS: Enoxaparin 40 MG/0.4 ML Syringe SC (08:31)
[2024-07-18] MEDS: Methimazole 5 MG Tablet PO (08:32)
[2024-07-18] MEDS: Ceftriaxone 2 GM in 0.9% Normal Saline (50mL MB+) 50 ML IV (09:38)
[2024-07-18] MEDS: Azithromycin 500 MG in 0.9% Normal Saline (250mL Bag) 250 ML 150 MG IV (10:29)
[2024-07-18] MEDS: Polyethylene Glycol 3350 17 GM PACKET 34 GM PO (12:31)
[2024-07-18] MEDS: Senna/Docusate Sodium 1 Tablet 2 TABLET PO (12:32)
--- NOTE | 2024-07-18 14:26 | DCINST_ITS ---
Discharge Instructions Diet Discharge Diet: No restrictions DC O2, CPAP, BIPAP needs Home O2 Discharge instructions: No Dressing / Incision Discharge Activity: - (Ambulation encouraged) Follow Up Care Test Results: Test results from this visit will be discussed in further detail at your follow- up appointment, if applicable. Discharge Plan Admission Admit Date/Time: 07/17/24 16:27 Primary Reason for Your Visit: Sharp right lower chest wall pain Attending Provider: Judy Rosa Primary Care Provider: Freda Wu Instructions Patient Instructions: ED Pneumonia (Adult) Additional Instructions / Restrictions: DISCHARGE INSTRUCTIONS PLEASE READ *Please take this with you to your next doctors appointment* - You will be discharged home on Augmentin 875 mg twice daily for 5 more days -It is advised that you alternate Tylenol and ibuprofen for pain control while your pain persists -Please call your primary care provider's office upon discharge to schedule a hospital follow up within 1 week. -For any concerning signs or symptoms please call 911 or proceed to the nearest emergency department Discharge Orders/Prescriptions Prescriptions: New amoxicillin-pot clavulanate 875-125 mg tablet 1 tab PO BID 5 Days Qty: 10 0RF Rx Instructions: Start 07/19 Continued mecobalamin (vitamin B12) 5,000 mcg lozenge 5,000 mcg PO DAILY Rx Instructions: allow to dissolve in mouth OR may chew lightly before swallowing (DME) blood pressure monitor Kit See Rx Instructions .Route Qty: 1 0RF Rx Instructions: Check daily and as needed cholecalciferol (vitamin D3) 50 mcg (2,000 unit) capsule 50 mcg PO DAILY zinc gluconate 50 mg tablet 50 mg PO DAILY gabapentin 300 mg capsule 300 mg PO QHS silver sulfadiazine 1 % cream 1 applic topical QDAY PRN (Reason: wound healing) Qty: 20 0RF Rx Instructions: apply a 1.5 mm thickness rosuvastatin 10 mg tablet 10 mg PO DAILY Qty: 90 3RF methimazole 5 mg tablet 5 mg PO QDAY Qty: 90 1RF Referrals / Follow Up: Freda Wu MD [Primary Care Provider] - Within 2 Weeks Disposition Disposition (needs filled in before D/C Order can be placed): Home, Self Care
--- NOTE | 2024-07-18 14:34 | PCM.DC.SUM ---
Providers Date of Admission: 07/17/24 Date of Discharge: 07/18/24 Primary Care Physician: Dr. Freda Wu MD Reason For Visit: Right lower rib cage pain Diagnosis Discharge Diagnosis (1) Inspiratory pain: Status: Acute Code(s): R07.1 - Chest pain on breathing Plan #Community-acquired pneumonia # Hyperthyroidism # Hyperlipidemia Medications at Discharge Home Medications mecobalamin (vitamin B12) 5,000 mcg lozenge 5,000 mcg PO DAILY 06/30/21 cholecalciferol (vitamin D3) 50 mcg (2,000 unit) capsule 50 mcg PO DAILY 08/15/21 blood pressure monitor #1 ea 09/25/21 zinc gluconate 50 mg tablet 50 mg PO DAILY 06/20/22 rosuvastatin 10 mg tablet 10 mg PO DAILY #90 tabs 12/03/23 methimazole 5 mg tablet 5 mg PO QDAY #90 tabs 05/15/24 gabapentin 300 mg capsule 300 mg PO QHS 06/01/24 silver sulfadiazine 1 % topical cream 1 applic topical QDAY PRN wound healing #20 grams 06/01/24 amoxicillin 875 mg-potassium clavulanate 125 mg tablet 1 tab PO BID 5 days #10 tabs 07/18/24 Hospital Course Summary of Care Provided Minutes Spent on Discharge: 32 Hospital Course: OMI ANDERSON, is a 74-year-old female with a history of hyperthyroidism, hyperlipidemia who presented to [facility] ED 07/16/24 with reports of right upper quadrant pain after eating lunch with symptoms radiating up to shoulder/neck. In the ED patient had benign lab workup and had a CT abdomen and pelvis as well as abdominal ultrasound was completely negative. Patient given GI cocktail and plan was to DC home this did not significantly help patient's pain so hospitalist contacted for admission. Patient evaluated and revealed that she had viral-like symptoms and cough initially got better then her pain started on Saturday with sharp pain worse when taking deep inspiration. CT of the chest obtained which did show a right lower lobe pneumonia, patient started on scheduled Tylenol and Coverage and given incentive spirometer as well as as needed pain medication, pain did improve to the point where it was tolerable and patient able to get up and move around. No significant shortness of breath and patient will to take a deep breath now, discussed discharge home and patient agreeable. Still has the pain but it is significantly improved from arrival. Discharge instructions as follows: - You will be discharged home on Augmentin 875 mg twice daily for 5 more days -It is advised that you alternate Tylenol and ibuprofen for pain control while your pain persists -Please call your primary care provider's office upon discharge to schedule a hospital follow up within 1 week. -For any concerning signs or symptoms please call 911 or proceed to the nearest emergency department Physical Exam Narrative General: Alert, oriented, no apparent distress HEENT: Atraumatic, normocephalic Eyes: Anicteric, normal conjunctiva, extraocular movements grossly intact Neck: Supple Respiratory: No significant crackles, no wheezes or rhonchi, normal respiratory effort and able to take a deep inspiration Cardiovascular: Regular rate and rhythm GI: Soft, nontender, nondistended Extremities: No edema Musculoskeletal: Moving all extremities Neuro: No overt focal neurological deficits Skin: No rashes appreciated Psych: Cooperative Weight / BMI Weight Weight: 97.8 kg Body Mass Index (BMI) 33.7 ABG / Lab / Microbiology Data 07/18/24 06:12 07/18/24 06:12 Laboratory: Laboratory Results - last 24 hr 07/18/24 06:12: WBC 6.0, RBC 3.97 L, Hgb 12.1, Hct 36.9 L, MCV 92.9, MCH 30.5, MCHC 32.8, RDW Std Deviation 40.7, RDW Coeff of Manny 11.9, Plt Count 181, MPV 10.1, Immature Gran % (Auto) 0.500, Neut % (Auto) 60.2, Lymph % (Auto) 26.5, [place] % (Auto) 9.5, Eos % (Auto) 2.5, Baso % (Auto) 0.8, Absolute Neuts (auto) 3.6, Absolute Lymphs (auto) 1.58, Nucleated RBC % 0, Sodium 138, Potassium 4.4, Chloride 105, Carbon Dioxide 23.0, Anion Gap 10, BUN 10, Creatinine 0.69 L, Estim Creat Clear Calc 76.34, Est GFR (MDRD) Non-Af 92, BUN/Creatinine Ratio 13.9, Glucose 107 H, Calcium 8.9 Microbiology: Microbiology 07/16/24 12:38 Mucosa - Nasopharyngeal Respiratory Panel (PCR) - Final 07/16/24 12:38 Mucosa - Nasopharyngeal Coronavirus COVID-19 PCR - Final D/C Instructions Discharge Diet: No restrictions DC O2, CPAP, BIPAP Needs Home O2 Discharge instructions: No Meaningful Use Info Meaningful Use Meaningful Use Diagnoses (Choose all that apply): None applicable Ischemic Stroke Statin Dosing Therapy Reference: STATIN DOSE THERAPY REFERENCE: * Patients > 75 years receive moderate or high dose statin therapy. * Patients 75 years or YOUNGER should receive HIGH intensity statin dose unless contraindicated. You will be required to document reason for non-treatment if statin daily dose does not meet guidelines. HIGH DOSE STATIN THERAPY DAILY Atorvastatin > than or = to 40 mg Rosuvastatin > than or = to 20 mg Amlodipine + Atorvastatin > than or = to 2.5/40 mg Ezetimibe + Simvastatin 10/80 mg Simvastatin 80mg Discharge Plan Admission Admit Date/Time: 07/17/24 16:27 Primary Reason for Your Visit: Sharp right lower chest wall pain Attending Provider: Judy Rosa Primary Care Provider: Freda Wu Instructions Patient Instructions: ED Pneumonia (Adult) Additional Instructions / Restrictions: DISCHARGE INSTRUCTIONS PLEASE READ *Please take this with you to your next doctors appointment* - You will be discharged home on Augmentin 875 mg twice daily for 5 more days -It is advised that you alternate Tylenol and ibuprofen for pain control while your pain persists -Please call your primary care provider's office upon discharge to schedule a hospital follow up within 1 week. -For any concerning signs or symptoms please call 911 or proceed to the nearest emergency department Discharge Orders/Prescriptions Prescriptions: New amoxicillin-pot clavulanate 875-125 mg tablet 1 tab PO BID 5 Days Qty: 10 0RF Rx Instructions: Start 07/19 Continued mecobalamin (vitamin B12) 5,000 mcg lozenge 5,000 mcg PO DAILY Rx Instructions: allow to dissolve in mouth OR may chew lightly before swallowing (DME) blood pressure monitor Kit See Rx Instructions .Route Qty: 1 0RF Rx Instructions: Check daily and as needed cholecalciferol (vitamin D3) 50 mcg (2,000 unit) capsule 50 mcg PO DAILY zinc gluconate 50 mg tablet 50 mg PO DAILY gabapentin 300 mg capsule 300 mg PO QHS silver sulfadiazine 1 % cream 1 applic topical QDAY PRN (Reason: wound healing) Qty: 20 0RF Rx Instructions: apply a 1.5 mm thickness rosuvastatin 10 mg tablet 10 mg PO DAILY Qty: 90 3RF methimazole 5 mg tablet 5 mg PO QDAY Qty: 90 1RF Referrals / Follow Up: Freda Wu MD [Primary Care Provider] - Within 2 Weeks Disposition Disposition (needs filled in before D/C Order can be placed): Home, Self Care Charges/Coding Visit Charges Inpatient E&M: 00387 Disch Hosp >30min
== END 2024-07-18 15:13 | disposition home or self-care (01) | DRG 195 ==
LOC: ED 08:46 → MS3 09:43
PROVIDERS: Admitting Provider Internal Medicine; Emergency Provider Emergency Medicine; PCP Internal Medicine; Visit Provider Internal Medicine
DX: J18.9 Pneumonia, unspecified organism (principal); E05.90 Thyrotoxicosis, unspecified without thyrotoxic crisis or storm; I10 Essential (primary) hypertension; E78.5 Hyperlipidemia, unspecified; Z87.891 Personal history of nicotine dependence; Z90.710 Acquired absence of both cervix and uterus; Z79.899 Other long term (current) drug therapy
CPT/HCPCS: 36415; 71046; 71250; 74177; 76705; 80048; 80053; 80076; 81001; 83690; 85025; 87633; 87635; 94640; 94668; 99283; Q9967; A4216; J0696; J2405

== ENCOUNTER → 2024-12-14 | Outpatient (CLI) | payer MEDICARE, OTHER, SELFPAY ==
[2024-12-14 13:01] LABS: Free T3 3.0 pg/mL (2.18-3.98)
== END | disposition home or self-care (01) ==
LOC: BIMLAB 08:13
PROVIDERS: PCP Internal Medicine; Visit Provider Internal Medicine Endocrinology, Diabetes & Metabolism
DX: E05.00 Thyrotoxicosis with diffuse goiter without thyrotoxic crisis or storm (principal)
CPT/HCPCS: 36415; 84439; 84443; 84481

== ENCOUNTER → 2025-01-04 | Outpatient (CLI) | payer MEDICARE, OTHER, SELFPAY ==
--- NOTE | 2025-01-04 11:00 | BI_ITS ---
EXAM: SCRN MAMM (CAD)W/SILVIA BILAT DATE: 01/04/2025 CLINICAL HISTORY: F, Age 74 y/o , SCREEN FOR BREAST CANCER TECHNIQUE: Procedure Code: BISMWCADBTOM Modality: MG Procedure: SCRN MAMM (CAD)W/SILVIA BILAT COMPARISON: Prior exam(s) dated 01/02/2024. FINDINGS: TISSUE DENSITY: There are scattered areas of fibroglandular density. Bilateral Breast Mammographic Findings: No significant masses, calcifications or other abnormalities are identified. Benign-appearing axillary lymph nodes are seen bilaterally. BI/SCRN MAMM (CAD)W/SILVIA BILAT IMPRESSION: Benign screening mammogram OVERALL FINAL ASSESSMENT BI-RADS 2: BENIGN RECOMMENDATION: Routine annual follow-up in 1 Year Additional Recommendation none A letter with findings and recommendations will be mailed to the patient. Reading Location: [id number]
--- NOTE | 2025-01-04 11:00 | BI_ITS ---
EXAM: SCRN MAMM (CAD)W/SILVIA BILAT DATE: 01/04/2025 CLINICAL HISTORY: F, Age 74 y/o , SCREEN FOR BREAST CANCER TECHNIQUE: Procedure Code: BISMWCADBTOM Modality: MG Procedure: SCRN MAMM (CAD)W/SILVIA BILAT COMPARISON: Prior exam(s) dated 01/02/2024. FINDINGS: TISSUE DENSITY: There are scattered areas of fibroglandular density. Bilateral Breast Mammographic Findings: No significant masses, calcifications or other abnormalities are identified. Benign-appearing axillary lymph nodes are seen bilaterally. BI/SCRN MAMM (CAD)W/SILVIA BILAT IMPRESSION: Benign screening mammogram OVERALL FINAL ASSESSMENT BI-RADS 2: BENIGN RECOMMENDATION: Routine annual follow-up in 1 Year Additional Recommendation none A letter with findings and recommendations will be mailed to the patient. Reading Location: [id number]
== END | disposition home or self-care (01) ==
LOC: OPBI 10:57
PROVIDERS: PCP Internal Medicine; Referring Provider Nurse Practitioner Women's Health; Visit Provider Nurse Practitioner Women's Health
DX: Z12.31 Encounter for screening mammogram for malignant neoplasm of breast (principal)
CPT/HCPCS: 77063; 77067

== ENCOUNTER → 2025-01-07 | Outpatient (CLI) | payer MEDICARE, OTHER, SELFPAY ==
[2025-01-07 15:15] LABS: Free T3 3.1 pg/mL (2.18-3.98)
== END | disposition home or self-care (01) ==
PROVIDERS: PCP Internal Medicine; Referring Provider Internal Medicine Endocrinology, Diabetes & Metabolism; Visit Provider Internal Medicine Endocrinology, Diabetes & Metabolism
DX: E05.00 Thyrotoxicosis with diffuse goiter without thyrotoxic crisis or storm (principal)
CPT/HCPCS: 36415; 84439; 84443; 84481

== ENCOUNTER → 2025-02-26 | Outpatient (CLI) | payer MEDICARE, OTHER, SELFPAY ==
[2025-03-01 15:08] LABS: Anti-Chromatin <0.2 AI (0.0-0.9); Anti-Jo <0.2 AI (0.0-0.9); Anti-dsDNA Ab 2 IU/mL (0-9); SJOGREN'S Anti-SS-A test > 8.0 AI (0.0-0.9); SJOGREN'S Anti-SS-B test < 0.2 AI (0.0-0.9)
== END | disposition home or self-care (01) ==
LOC: MTLAB 08:15
PROVIDERS: PCP Internal Medicine; Referring Provider Internal Medicine Endocrinology, Diabetes & Metabolism; Visit Provider Internal Medicine Endocrinology, Diabetes & Metabolism
DX: R68.2 Dry mouth, unspecified (principal); H04.123 Dry eye syndrome of bilateral lacrimal glands; E05.00 Thyrotoxicosis with diffuse goiter without thyrotoxic crisis or storm
CPT/HCPCS: 36415; 84443; 86225; 86235; 86431

== ENCOUNTER → 2025-03-10 | Outpatient (CLI) | payer MEDICARE, OTHER, SELFPAY | END | disposition home or self-care (01) | LOC: LABSPEC 16:28 | PROVIDERS: PCP Internal Medicine; Visit Provider Nurse Practitioner Women's Health | DX: Z87.412 Personal history of vulvar dysplasia (principal); Z87.42 Personal history of other diseases of the female genital tract; Z12.4 Encounter for screening for malignant neoplasm of cervix | CPT/HCPCS: 88175; G0145 ==